=== PATIENT | female | born 1980 | race Caucasian/White ===

== ENCOUNTER 2020-05-11 15:42 | Emergency (ER) | payer MEDICAID, SELFPAY ==
[2020-05-11 15:55] VITALS: BP 129/78; PULSE 108; RESP 15; TEMP 37.7; O2SAT 98; BMI 16.5
== END 2020-05-11 16:29 | disposition left against medical advice (07) ==
LOC: HO.ED 16:29
PROVIDERS: Emergency Provider Emergency Medicine
DX: R10.9 Unspecified abdominal pain (principal)
CPT/HCPCS: 99281; 99282

== ENCOUNTER 2020-10-07 12:31 | Emergency (ER) | payer MEDICAID, SELFPAY ==
--- NOTE | 2020-10-07 12:44 | ED_ITS ---
HPI - Overdose General Chief Complaint: ETOH/Substance Use Stated Complaint: ? Time Seen by Provider: 10/07/20 12:38 Source: patient and aerial photograph interpreter Mode of arrival: ambulatory Limitations: physical limitation History of Present Illness HPI Narrative: 40-year-old female who walked herself to the emergency department with severe vomiting, patient claimed that she used 1 bag of heroin today followed by self administrated nasal Narcan, patient is known to me from a previous visit for similar presentation, mostly [place] speaker, patient presented with vomiting and dry heaving, patient is acting erratic and vague. Patient was taken to room 19, IV fluid will be placed, antiemetic medication will be given, Ativan to come down the patient behavior, will reassess the patient for further history. For now patient's symptoms is assumed to be using heroin with antidote of Narcan. Related Data Allergies Allergy/AdvReac Type Severity Reaction Status Date / Time acetaminophen [From TYLENOL] Allergy Unknown LIVER Verified 05/11/20 16:01 CIRRHOSIS codeine [CODEINE] Allergy Unknown AGITATION Verified 05/11/20 16:01 Codeine Sulfate Allergy Unknown shaky Uncoded 04/09/16 00:00 Review of Systems Review of Systems: Yes Unobtainable due to mental condition PMFSH Past Medical History Medical History (Updated 10/07/20 @ 12:54 by Bryce Barajas MD) Depressed Fibromyalgia Substance abuse Social History Social History Advance Directives: No Advance Directives Information Provided: No Physical Exam Vital Signs: Vital Signs: Last Vital Signs Temp 0 F L 10/07/20 12:51 Pulse 89 10/07/20 14:33 Resp 18 10/07/20 14:33 BP 00/00 L 10/07/20 12:51 Pulse Ox 98 10/07/20 14:33 Body Mass Index 18.3 Vital signs have been reviewed as appeared to be correct. Blood pressure normal. Heart rate normal. Respiration rate normal. Temperature normal. Oxygen saturation normal. Appearance: Is coherent, difficult to interact with the examiner due to active vomiting and dry heaving. Head: Normal external exam. Normocephalic. Atraumatic. No Yeager signs noted. No raccoon eyes noted Eyes: PERRLA. EOMI. Conjunctiva and sclera normal. Eyelids normal. ENT: TM's Normal. Pharynx normal. Uvula midline. Moist mucous membranes. No trismus noted. No drooling noted. No muffled voice noted. Neck: Normal inspection. Neck supple. FROM. No adenopathy. Thyroid Normal. No meningeal signs. No neck mass noted. CVS: Normal heart rate and rhythm. Heart sound normal. No murmurs noted. Pulses normal throughout. Respiratory: No respiratory distress. Painless inspiration. Breath sounds normal. No wheezes/rales/rhonchi noted. Chest nontender. No accessory muscle usage noted or decreased air movement noted. Abdomen: Soft and nontender. Bowel sounds normal in all 4 quadrants. No distention noted. No organomegaly noted. No visible injury noted. Back: No CVA tenderness. Full range of motion noted. Skin: Skin warm and dry. Normal skin color. Normal skin turgor. No rashes/lesions/lacerations noted. Extremities: No lower extremity edema. Extremities exhibit normal range of motion. Extremities nontender. Neuro: No motor deficit. No sensory deficit. Reflexes normal. Course Reevaluation(s) Reevaluation #1: Patient now with more calm and quiet, with improvement of nausea and vomiting and dry heaving, patient discontinue her left forearm IV access, patient is sitting on the floor claiming that she is more comfortable. Vital signs stable. Time: 13:46 Reevaluation #2: Patient now is more home trying to sleep, no more nausea or vomiting, patient admitted to using heroin today with Narcan, patient declined SI or HI hallucination, patient do not have family or friend to come pick her up, from medical standpoint of view patient will be safe to be discharged Discharge Plan Discharge Clinical Impression: Polysubstance abuse, Anxiety Patient Disposition: Home, Self-Care Instructions: Polysubstance Abuse (ED) Referrals: [facility] [Primary Care Provider] - 2 days
[2020-10-07 12:51] VITALS: BP 00/00; PULSE 127; RESP 28; TEMP -17.7; TEMP 0; O2SAT 100; BMI 18.3
[2020-10-07] MEDS: LORazepam 2 MG/ML VIAL 1 MG IVPUSH (12:55)
[2020-10-07] MEDS: ondansetron HCL 4 MG/2 ML VIAL IVPUSH (12:56)
[2020-10-07 13:47] VITALS: PULSE 110; PULSE 90; RESP 20; O2SAT 100
--- NOTE | 2020-10-07 13:50 | PC.NURSE ---
pt seen by provider, pt difficult to get to participate in eval, unable to stay still for vs. pt nauseated and vomiting during triage, pt unwilling to hold emesis bag, almost puking on staff attemptng to settle pt. pt iv established w multiple hand assist. medicated per emar, placed on tele, appears to be settling down. pt no longer vomitting. constantly attempting to get out of bed, pulled iv out. unwilling to stay in pt room or stretcher. persistently attempting to ambulate around department w/o mask. ambulating w quick, steady gait. charger aware of pt status, provider aware of pt status.
--- NOTE | 2020-10-07 14:32 | PC.NURSE ---
pt continuing to be resistant to checking blood pressure. pt is resting in their clothes, head facing foot of stretcher. respirations appear even/unlabored. wctm for dc needs.
[2020-10-07 14:33] VITALS: PULSE 89; RESP 18; O2SAT 98
[2020-10-07 15:12] VITALS: BP 126/72; PULSE 90; RESP 18; O2SAT 99
== END 2020-10-07 15:33 | disposition home or self-care (01) ==
PROVIDERS: Emergency Provider Emergency Medicine
DX: F19.180 Other psychoactive substance abuse with psychoactive substance-induced anxiety disorder (principal); R11.10 Vomiting, unspecified
CPT/HCPCS: 51701; 96361; 96374; 96375; 99285; J2060; J2405

== ENCOUNTER 2020-12-17 17:46 | Emergency (ER) | payer MEDICAID, SELFPAY ==
--- NOTE | 2020-12-17 17:55 | ED_ITS ---
HPI - Alcohol General Chief Complaint: ETOH/Substance Use Stated Complaint: ETOH,?HEROIN USE,-NARCAN Time Seen by Provider: 12/17/20 17:55 Source: patient and EMS Mode of arrival: EMS Limitations: no limitations History of Present Illness HPI narrative: admits to using heroin earlier in the day just left detox, wants to go home, states the police were called because she was using someone's window as a mirror, they offered skilled nursing or ED - she chose ED, no SI, wants to go home, no narcan needed, does not want detox Chronic alcohol use: No Previous visits for alcohol intoxication: No Recent trauma: No Associated symptoms: denies other symptoms Treatments prior to arrival: none Related Data Allergies Allergy/AdvReac Type Severity Reaction Status Date / Time acetaminophen [From TYLENOL] Allergy Unknown LIVER Verified 05/11/20 16:01 CIRRHOSIS codeine [CODEINE] Allergy Unknown AGITATION Verified 05/11/20 16:01 Codeine Sulfate Allergy Unknown shaky Uncoded 04/09/16 00:00 Review of Systems Review of Systems: Constitutional : No Weight loss, No Fever Eyes: No Eye Pain, No Swelling Cardiovascular : No Chest Pain, No SOB Respiratory : No Cough, No Sputum Gastrointestinal : No Nausea, No Vomiting Genitourinary : No Dysuria, No Urinary Frequency Musculoskeletal : No joint pain, No Myalgias Skin : No Skin Lesions, No rash Neuro : No Weakness, No Numbness, No Dizziness, No Headache Psych : No Anxiety/Panic, No Depression PMFSH Past Medical History Attestation statement: The following information was validated with the patient. Medical History Depressed Fibromyalgia Substance abuse Social History Social History (Updated 12/17/20 @ 18:07 by Rebekah Carter DO) Patient Tobacco Use Status: Current everyday Tobacco user Substance Use Type: Heroin Physical Exam Vital Signs: Vital Signs: Last Vital Signs Temp 99.0 F 12/17/20 17:57 Pulse 101 H 12/17/20 17:57 Resp 20 12/17/20 17:57 BP 151/75 H 12/17/20 17:57 Pulse Ox 97 12/17/20 17:57 Body Mass Index 19.3 Appearance: Alert. Oriented X3. No acute distress. Anxious slightly restless Eyes: Pupils equal, round and reactive to light. ENT: Pharynx normal. Neck: Normal inspection. Neck supple. CVS: tachycardic heart rate and rhythm. Pulses normal. Respiratory: No respiratory distress. Breath sounds normal. Abdomen: Soft and nontender. Skin: Skin warm and dry. Normal skin color. Normal skin turgor. Extremities: No lower extremity edema. No calf ttp Neuro: Oriented X 3. No motor deficit. No sensory deficit. MDM - Alcohol MDM Narrative Medical decision making narrative: admits to using heroin earlier in the day just left detox, wants to go home, states the police were called because she was using someone's window as a mirror, they offered skilled nursing or ED - she chose ED, no SI, wants to go home, no narcan needed, does not want detox - I do not think I can keep her on a section, she is not sedated she is alert and oriented x 3, does not want detox, will take narcan home with her. Discharge Plan Discharge Clinical Impression: Heroin abuse Patient Disposition: Home, Self-Care Instructions: Opioid Use Disorder (ED) Additional Instructions: return to ED for any worsening symptoms or concerns
[2020-12-17 17:57] VITALS: BP 147/68; BP 151/75; PULSE 101; PULSE 120; RESP 20; TEMP 37.2; O2SAT 97; O2SAT 98; BMI 19.3
== END 2020-12-17 18:16 | disposition home or self-care (01) ==
PROVIDERS: Emergency Provider Emergency Medicine
DX: F11.10 Opioid abuse, uncomplicated (principal); F17.210 Nicotine dependence, cigarettes, uncomplicated
CPT/HCPCS: 99283

== ENCOUNTER 2020-12-21 02:07 | Emergency (ER) | payer MEDICAID, SELFPAY ==
[2020-12-21] VITALS (12 sets, daily range): BP systolic 124–164; BP diastolic 83–109; PULSE 78–100; RESP 16–20; TEMP 36.5–36.6; O2SAT 98–100; BMI 20.4
--- NOTE | 2020-12-21 02:51 | PC.NURSE ---
pt was thrashing around in the bed. padded side rales in place, 4 point restraints pt arrived in are still in place by security. family friend and mom called in and reported pt was in her room naked and about to jump out her window. pt has track pepper and verbaly states she is high . pt just stated she did herion tonight and she took for her pain from her hernia surgery while she was in longterm in [place].
--- NOTE | 2020-12-21 03:42 | ED.OVERDOSE ---
HPI - Overdose General Chief Complaint: ETOH/Substance Use Stated Complaint: ALTERED ? SUBSTANCE USE,4PT RESTRAINT @ THIS TIME Time Seen by Provider: 12/21/20 03:42 Source: patient, family and EMS Mode of arrival: EMS History of Present Illness HPI Narrative: 40F brought in by EMS after family found her naked and concernt hat she was going to jump out of the window. Unable to obtain further history from the patient other than she states this has not happened before, but never know what I might get in reference to a question regarding heroin. She denies any alcohol use, but endorses heroin. Related Data Allergies Allergy/AdvReac Type Severity Reaction Status Date / Time acetaminophen [From TYLENOL] Allergy Unknown LIVER Verified 05/11/20 16:01 CIRRHOSIS codeine [CODEINE] Allergy Unknown AGITATION Verified 05/11/20 16:01 Codeine Sulfate Allergy Unknown shaky Uncoded 04/09/16 00:00 Review of Systems Review of Systems: Unable to obtain in entirety. [facility] Past Medical History Source: nursing notes reviewed Medical History Depressed Fibromyalgia Substance abuse Social History Social History Patient Tobacco Use Status: Current everyday Tobacco user Substance Use Type: Heroin Advance Directives: No Advance Directives Information Provided: No Physical Exam Vital Signs: Vital Signs: Last Vital Signs Temp 97.8 F 12/21/20 14:26 Pulse 90 12/21/20 14:26 Resp 20 12/21/20 14:26 BP 141/83 H 12/21/20 14:26 Pulse Ox 99 12/21/20 14:26 Body Mass Index 20.4 Vital signs reviewed. GEN: well-developed, appears older than stated age, patient having uncontrolled jerking movements HEENT: no obvious injuries PULM: Lungs CTAB, easy respiration CVS: RRR, no murmurs noted, intact peripheral pulses ABD: soft, non-distended, non-tender EXT: Patient in 4pt restraints for safety measures for herself, no abrasions/injuries noted to ankles or wrists, seizure pads in place for additional patient protection from bed rails. Neuro: Altered with uncontrollable movements Skin: pink, cap refill <3s Course Course Course Narrative: 40F with history and clinical exam consistent with substance overdose and suspect more than heroin in her system given physical movements. Restraints and seizure pads all in place for patient protection from bed rails, otherwise patient is not being violent or agitated with staff. Reevaluation(s) Reevaluation #1: Patient re-evaluated for appropriateness of physical restraint removal. However, at this time patient is still intermittently striking out raising concerns for possible injury to arms or legs. Although patient is interactive, these movements occur when she suddenly awakens. Time: 03:30 Reevaluation #2: Physical restraints removed and patient resting comfortably. Evaluation of ankles and wrists without concerns of injury. Time: 05:30 Reevaluation #3: Signed out to Dr Lozada for discharge when clinically sober. Time: 07:00 MDM - Overdose Lab Data Labs: Lab Results 12/21/20 12/21/20 Range/Units 10:27 11:25 POC Glucose 64 192 H (60-115) mg/dL Discharge Plan Discharge Clinical Impression: Substance abuse Patient Disposition: Home, Self-Care Instructions: Polysubstance Abuse (ED) Additional Instructions: Return to the ER for worsening problem Referrals: [facility] [Primary Care Provider] - 2 days
--- NOTE | 2020-12-21 05:27 | PC.NURSE ---
pt is more relaxed and resting at this time. jerking movements have stop. security called to release pt from restraints. sitter present.
--- NOTE | 2020-12-21 05:53 | PC.NURSE ---
pt restraints assess at 0515 for release and pt is ready for d/c of them, security called and at 0530 remained off. pt is sleeping with occassional brief periods of restlessness. pt is move verbal and can express needs.
--- NOTE | 2020-12-21 10:30 | PC.NURSE ---
pt's poc is 64, pt is very diaphoretic. given given 8 0z of oj with 2 tsps of sugar and eric crackers and a turkey sandwich. pt brought to room 6 and change out of wet hosp garment and blankets.
[2020-12-21 10:32] LABS: Glucose, Whole Blood 64 mg/dL (60-115)
--- NOTE | 2020-12-21 11:24 | PC.NURSE ---
pt's daughter miguel mccarty ([phone]) called [facility] for an updated on her mother. pt is aware and consented. daughter states that she could pick pt up when she is discharged. aware.
--- NOTE | 2020-12-21 11:26 | PC.NURSE ---
pt's poc is 192 which was done by duran (mha/pct). pt is a/o requested/given more juice.
[2020-12-21 11:28] LABS: Glucose, Whole Blood 192 mg/dL (60-115)
--- NOTE | 2020-12-21 12:50 | PC.NURSE ---
pt's daughter at bedside
--- NOTE | 2020-12-21 13:00 | PC.NURSE ---
pt/pt's daughter seen by savanah (care team) they are aware of plan of care.
--- NOTE | 2020-12-21 13:10 | PC.NURSE ---
daughter in resulting pending room, at bedside updating her.
--- NOTE | 2020-12-21 13:34 | MHC.RECOVSUP ---
Recovery Support note: Patient is a 40 year old [place] speaking female who presented to [facility] ED due to altered mental status after using substances. Upon arrival, patient was unable to stay still and was thrashing in the hospital bed. Patient was physically restrained for her safety. Patient is now alert and oriented and reporting a desire to get help for her opioid use disorder. Patient reports daily IV heroin and cocaine use. Patient reports she is not on any medications at this time. Patient denies SI/HI/AH/VH at this time. Patient reports she is willing to go anywhere for treatment. This short story writer spoke with patient's daughter who suspects there was something else in the substances used by her mother, as the thrashing and inability to stay still has never happened before. Daughter reports no safety concerns at this time and is supportive of her mother getting into treatment. This short story writer will refer patient to ATS facilities and will arrange transportation if patient is accepted.
--- NOTE | 2020-12-21 13:49 | PC.NURSE ---
pt ate lunch portion x 3. 100% x 3. pt states that she was very hungry, unsure that last time pt ate.
--- NOTE | 2020-12-21 17:18 | MHC.RECOVSUP ---
Recovery Support note: Patient has been accepted to [facility] for detox and has completed the phone intake. Patient agreeable to getting a Lyft ride to the facility.
[2020-12-21] MEDS: LORazepam 1 MG TABLET PO (17:29)
== END 2020-12-21 17:38 | disposition home or self-care (01) ==
PROVIDERS: Emergency Provider Student in an Organized Health Care Education/Training Program
DX: F11.10 Opioid abuse, uncomplicated (principal); R45.1 Restlessness and agitation; Z78.1 Physical restraint status; F17.210 Nicotine dependence, cigarettes, uncomplicated
CPT/HCPCS: 82947; 99285

== ENCOUNTER 2021-01-18 07:27 | Emergency (ER) | payer MEDICAID, SELFPAY ==
--- NOTE | ~2021-01-18 | XR_ITS ---
EXAMINATION: XR CHEST CLINICAL INFORMATION: Palpitations and chest pain COMPARISON: Previous chest x-ray February 2020 TECHNIQUE: 2 views of the chest were obtained. FINDINGS: No significant abnormality is noted involving the heart, lungs, mediastinum, bony thorax or soft tissues. XR/XR chest 2V IMPRESSION: Unremarkable examination.
[2021-01-18 07:30] VITALS: BP 157/91; PULSE 95; RESP 20; TEMP 36.3; O2SAT 99; BMI 21.9
[2021-01-18 07:50] VITALS: RESP 22
--- NOTE | 2021-01-18 08:09 | ECG_ITS ---
Test Reason : PALPITATIONS Blood Pressure : / mmHG Vent. Rate : 102 BPM Atrial Rate : 102 BPM P-R Int : 136 ms QRS Dur : 086 ms QT Int : 366 ms P-R-T Axes : 037 015 020 degrees QTc Int : 477 ms Sinus tachycardia Otherwise normal ECG When compared with ECG of 08-MAR-2020 01:26, QT has lengthened Referred By: Sonia Stanley Electronically Signed By:PARADISE KENNEDY MD
[2021-01-18] MEDS: LORazepam 1 MG TABLET 2 MG PO (08:26)
[2021-01-18 08:32] LABS: MANUAL DIFF FLAG NO
[2021-01-18 08:34] LABS: Basophils Percent Auto 0.4 % (0-2); Eosinophils Absolute Auto 0.1 X10*3/uL (0.0-0.4); Eosinophils Percent Auto 1.4 % (0-4); Hematocrit 33.2 % (37-47); Hemoglobin 11.2 g/dl (12.0-16.0); Imm Gran Abs Auto 0.02 X10*3/uL (0.00-0.03); Imm Gran Pct Auto 0.3 % (0.0-0.4); Mean Corpuscular HGB Conc 33.7 g/dl (31.0-35.0); Mean Corpuscular Hemoglobin 27.9 pg (27.0-33.0); Mean Corpuscular Volume 82.8 fL (80-98); Mean Platelet Volume 9.4 fL (9.4-12.3); Monocytes Absolute Auto 0.7 X10*3/uL (0.1-1.2); Monocytes Percent Auto 9.4 % (2-11); Neutrophils Absolute Auto 4.5 X10*3/uL (2.0-8.3); Neutrophils Percent Auto 61.5 % (45-73); Platelet Count 271 X10*3/uL (160-400); Red Blood Count 4.01 X10*6/uL (4.20-5.50); Red Cell Distribution Width 15.9 % (11.0-16.0); White Blood Count 7.3 X10*3/uL (4.8-10.8)
[2021-01-18 08:40] LABS: Prothrombin Time 11.8 SEC (10.8-13.0)
[2021-01-18 09:07] LABS: Alanine Aminotransferase 31 U/L (0-31); Albumin Level 4.2 g/dL (3.5-5.0); Alkaline Phosphatase 111 U/L (39-117); Anion Gap 14 (12-20); Aspartate Amino Transferase 23 U/L (5-31); Bilirubin Total 0.6 mg/dL (0.0-1.0); Blood Urea Nitrogen 16 mg/dL (9-16); Calcium 9.1 mg/dL (8.4-10.2); Carbon Dioxide 20 mmol/L (22-29); Chloride 110 mmol/L (96-108); Creatinine Clr Calc Pharmacy 78.3; Estimated Glomerular Filt Rate > 60; Glucose Random 96 mg/dL (60-115); Magnesium 2.2 mg/dL (1.6-2.6); Potassium 3.3 mmol/L (3.3-5.1); Sodium 141 mmol/L (135-145); Total Protein 8.1 g/dL (6.5-8.0)
[2021-01-18 09:09] LABS: B Type Natriuretic Peptide 39 pg/mL (<100); Troponin-I High Sensitivity < 3.5 ng/L (<3.5-17.0)
--- NOTE | 2021-01-18 11:04 | ED_ITS ---
HPI - Chest Pain General Chief Complaint: Arrhythmia/Palpitations Stated Complaint: CHEST RACEING Time Seen by Provider: 01/18/21 08:08 Source: patient Mode of arrival: ambulatory Limitations: no limitations History of Present Illness HPI narrative: 40-year-old female with a past medical history of anxiety disorder, depression, fibromyalgia and substance abuse presenting to the ED with complaints of midsternal/left-sided chest pain that started at 07:30 prior to arrival after she smoked some cocaine. She reports associated palpitations feeling like her heart is racing and tingling throughout her entire body. She denies any SI/HI/auditory visual hallucinations thoughts of self-injury. She reports that she is not interested in detox at this time due to she is already getting the IM injection for substance abuse although cannot recall the name. she also reports she was just recently in detox approximately 1-2 months ago. She denies any dizziness, headaches, change in vision, nausea / vomiting, short ness of breath, dyspnea on exertion, orthopnea, cough, neck pain, back pain, abdominal pain, diarrhea, constipation, recent travel or sick contacts, lower extremity edema or any other symptoms complaints or concerns at this time. MD complaint: chest pain Pertinent past history: other ( cocaine usage prior to arrival) Onset (ago): hour(s) ( started at 07:30am prior to arrival) Timing of current episode: constant and still present Prior episodes: No Onset: associated with drug use Pain location: substernal and left chest Pain radiation: right arm and left arm Severity: moderate Quality: aching Relieving factors: nothing Exacerbating factors: nothing Context: other ( recent cocaine usage) Associated symptoms: other ( paresthesia to the entire body) Treatment prior to arrival: none Risk Factors Coronary artery disease risk factors: cocaine use Related Data On Oral Contraceptives: No Allergies Allergy/AdvReac Type Severity Reaction Status Date / Time acetaminophen [From TYLENOL] Allergy Unknown LIVER Verified 05/11/20 16:01 CIRRHOSIS codeine [CODEINE] Allergy Unknown AGITATION Verified 05/11/20 16:01 Codeine Sulfate Allergy Unknown shaky Uncoded 04/09/16 00:00 Review of Systems Review of Systems: Constitutional : No Weight loss, No Fever, No Chills, No Night Sweats, No Fatigue, No Malaise ENT/Mouth : No Hearing loss, No Ear Pain, No Nasal Congestion, No Sinus Pain, No Hoarseness, No sore throat, No Rhinorrhea, No Swallowing Difficulty Eyes: No Eye Pain, No Swelling, No Redness, No Foreign Body, No Discharge, No Vision Changes Cardiovascular : Positive Chest Pain, Positive Palpitations, No SOB, no Dyspnea on Exertion, No Orthopnea, No Edema, No extremity swelling Respiratory : No Cough, No Sputum, No Wheezing, No Dyspnea Gastrointestinal : No Nausea, No Vomiting, No Diarrhea, No abdominal Pain, No Hematochezia, No Melena Genitourinary : No irregular bleeding, No Dysuria, No Urinary Frequency, No Hematuria, No Urinary Incontinence, No Urgency, No Flank Pain, No Urinary Flow Changes, No Hesitancy Musculoskeletal : No joint pain, No Myalgias, No Joint Swelling Skin : No Skin Lesions, No rash Neuro : Positive Paresthesias, No Weakness, No Numbness, No Paresthesias, No Loss of Consciousness, No Dizziness, No Headache Psych : No Anxiety/Panic, No Depression, No SI/HI/AH/VH Heme/Lymph: No Bruising, No Bleeding,No Lymphadenopathy Endocrine : No Polyuria, No Polydipsia, No Temperature Intolerance Yes all other systems are reviewed and are negative [facility] Past Medical History Attestation statement: The following information was validated with the patient. Medical History Depressed Fibromyalgia Substance abuse Social History Social History Patient Tobacco Use Status: Current everyday Tobacco user Substance Use Type: Heroin Advance Directives: No Advance Directives Information Provided: No Patient : No Physical Exam Vital Signs: Vital Signs: Last Vital Signs Temp 97.4 F 01/18/21 07:30 Pulse 90 01/18/21 11:49 Resp 20 01/18/21 11:49 BP 157/91 H 01/18/21 07:30 Pulse Ox 99 01/18/21 07:30 Body Mass Index 21.9 vital signs have been reviewed as normal and appeared to be correct. Blood pressure hypertensive 157/91. Heart rate normal. Respiration rate normal. Temperature normal. Oxygen saturation normal. Appearance: Alert. Oriented X3. No acute distress. Head: Normal external exam. Normocephalic. Atraumatic. Eyes: PERRLA. EOMI. Conjunctiva and sclera normal. Eyelids normal. ENT: Pharynx normal. Uvula midline. Moist mucous membranes. Neck: Normal inspection. Neck supple. FROM. No adenopathy. No meningeal signs. CVS: Normal heart rate and rhythm. Heart sound normal. Pulses normal throughout. No murmurs/rales/gallops. Respiratory: No respiratory distress. Painless inspiration. Breath sounds normal. No wheezes/rales/rhonchi noted. Chest nontender. No accessory muscle usage noted or decreased air movement noted. Abdomen: Soft and nontender. Bowel sounds normal in all 4 quadrants. No distention noted. No organomegaly noted. No visible injury noted. Back: Full range of motion noted. No rashes/lesion/induration/fluctuance or signs of infection noted. Skin: Skin warm and dry. Normal skin color. Normal skin turgor. No rashes/lesions/lacerations noted. Extremities: No lower extremity edema. no calf tenderness noted. Extremities exhibit normal range of motion. Extremities nontender. Neuro: Oriented X 3. No motor deficit. No sensory deficit. Reflexes normal. Normal steady gait. No focal neuro deficits noted. Vascular: + radial pulses/+ 2 distal pedal pulses/+2 dorsalis pedis b/l. Normal cap refill. No cyanosis noted to upper extremity nails and lower extremity toes nails. Course Course Course Narrative: 8:10am - 40-year-old female with a past medical history of anxiety disorder, depression, fibromyalgia and substance abuse presenting to the ED with complaints of midsternal/left-sided chest pain that started at 07:30 prior to arrival after she smoked some cocaine. She reports associated palpitations feeling like her heart is racing and tingling throughout her entire body. Plan: Labs, Chest x-ray, EKG. Provide 2 mg of p.o. Ativan and re-evaluate Reevaluation(s) Reevaluation #1: - labs returned patient had 2- delta is for troponin. Otherwise all other labs are within normal limits. Chest x-ray within normal limits no evidence of any acute disease is noted. EKG normal sinus rhythm no acute ischemic changes were noted. Therefore will DC home with instructions to not use any cocaine or any other drugs and to return if any new or worsening symptoms to follow up with primary care provider. Patient understands agrees with this plan. Time: 12:33 [facility] - Chest Pain Medical Records Data Attestation: I reviewed the patient's medical records. Lab Data Attestation: I reviewed the patient's lab results. Result diagrams: 01/18/21 08:28 01/18/21 08:28 Labs: Lab Results 01/18/21 01/18/21 01/18/21 Range/Units 08:28 08:28 08:28 WBC 7.3 (4.8-10.8) X10*3/uL RBC 4.01 L (4.20-5.50) X10*6/uL Hgb 11.2 L (12.0-16.0) g/dl Hct 33.2 L (37-47) % MCV 82.8 (80-98) fL MCH 27.9 (27.0-33.0) pg MCHC 33.7 (31.0-35.0) g/dl RDW 15.9 (11.0-16.0) % Plt Count 271 (160-400) X10*3/uL MPV 9.4 (9.4-12.3) fL Immature Gran % (Auto) 0.3 (0.0-0.4) % Neut % (Auto) 61.5 (45-73) % Lymph % (Auto) 27.0 (20-40) % Pacific % (Auto) 9.4 (2-11) % Eos % (Auto) 1.4 (0-4) % Baso % (Auto) 0.4 (0-2) % Lymph # (Auto) 2.0 (1.2-4.9) X10*3/uL Pacific # (Auto) 0.7 (0.1-1.2) X10*3/uL Eos # (Auto) 0.1 (0.0-0.4) X10*3/uL Baso # (Auto) 0.0 (0.0-0.2) X10*3/uL Abs Immat Gran (auto) 0.02 (0.00-0.03) X10*3/uL Absolute Neuts (auto) 4.5 (2.0-8.3) X10*3/uL Absolute Nucleated RBC 0.000 (0.0-0.012) X10*3/uL Nucleated RBC % (auto) 0.0 (0.0-0.2) /100WBC PT 11.8 (10.8-13.0) SEC INR 1.0 (0.9-1.1) Sodium 141 (135-145) mmol/L Potassium 3.3 (3.3-5.1) mmol/L Chloride 110 H (96-108) mmol/L Carbon Dioxide 20 L (22-29) mmol/L Anion Gap 14 (12-20) BUN 16 (9-16) mg/dL Creatinine 0.77 (0.5-1.4) mg/dL Estim Creat Clear Calc 78.3 Estimated GFR > 60 Random Glucose 96 (60-115) mg/dL Calcium 9.1 (8.4-10.2) mg/dL Magnesium 2.2 (1.6-2.6) mg/dL Total Bilirubin 0.6 (0.0-1.0) mg/dL AST 23 (5-31) U/L ALT 31 (0-31) U/L Alkaline Phosphatase 111 (39-117) U/L Troponin I High Sens (<3.5-17.0) ng/L B-Natriuretic Peptide (<100) pg/mL Total Protein 8.1 H (6.5-8.0) g/dL Albumin 4.2 (3.5-5.0) g/dL 01/18/21 01/18/21 Range/Units 08:28 11:46 WBC (4.8-10.8) X10*3/uL RBC (4.20-5.50) X10*6/uL Hgb (12.0-16.0) g/dl Hct (37-47) % MCV (80-98) fL MCH (27.0-33.0) pg MCHC (31.0-35.0) g/dl RDW (11.0-16.0) % Plt Count (160-400) X10*3/uL MPV (9.4-12.3) fL Immature Gran % (Auto) (0.0-0.4) % Neut % (Auto) (45-73) % Lymph % (Auto) (20-40) % Pacific % (Auto) (2-11) % Eos % (Auto) (0-4) % Baso % (Auto) (0-2) % Lymph # (Auto) (1.2-4.9) X10*3/uL Pacific # (Auto) (0.1-1.2) X10*3/uL Eos # (Auto) (0.0-0.4) X10*3/uL Baso # (Auto) (0.0-0.2) X10*3/uL Abs Immat Gran (auto) (0.00-0.03) X10*3/uL Absolute Neuts (auto) (2.0-8.3) X10*3/uL Absolute Nucleated RBC (0.0-0.012) X10*3/uL Nucleated RBC % (auto) (0.0-0.2) /100WBC PT (10.8-13.0) SEC INR (0.9-1.1) Sodium (135-145) mmol/L Potassium (3.3-5.1) mmol/L Chloride (96-108) mmol/L Carbon Dioxide (22-29) mmol/L Anion Gap (12-20) BUN (9-16) mg/dL Creatinine (0.5-1.4) mg/dL Estim Creat Clear Calc Estimated GFR Random Glucose (60-115) mg/dL Calcium (8.4-10.2) mg/dL Magnesium (1.6-2.6) mg/dL Total Bilirubin (0.0-1.0) mg/dL AST (5-31) U/L ALT (0-31) U/L Alkaline Phosphatase (39-117) U/L Troponin I High Sens < 3.5 < 3.5 (<3.5-17.0) ng/L B-Natriuretic Peptide 39 (<100) pg/mL Total Protein (6.5-8.0) g/dL Albumin (3.5-5.0) g/dL Imaging Data Chest x-ray: Attestation: I personally reviewed and interpreted this imaging study as follows: Radiologist's impression: FINDINGS: No significant abnormality is noted involving the heart, lungs, mediastinum, bony thorax or soft tissues. XR/XR chest 2V IMPRESSION: Unremarkable examination. ECG Data ECG #1: Attestation: I personally reviewed and interpreted this ECG as follows: ECG interpretation date: 01/18/21 ECG interpretation time: 07:42 Interpretation: sinus tachycardia ventricular rate of 102 with a normal WI interval normal QRS duration and a QT/QTC interval. No acute ischemic change are noted. Similar compared to prior EKG 03/08/2020 Discharge Plan Discharge Clinical Impression: Atypical chest pain, Substance abuse Patient Disposition: Home, Self-Care Instructions: Chest Pain (ED), Polysubstance Abuse (ED) Additional Instructions: it is important that you do not use any drugs especially cocaine this can actually cause a heart attack. All your blood work was normal today. Return if any new or worsening symptoms and follow up with her primary care provider. Referrals: [place],[facility] [Primary Care Provider] - 2 days Print Language: Uzbek
[2021-01-18 11:49] VITALS: PULSE 90; RESP 20
[2021-01-18 12:17] LABS: Troponin-I High Sensitivity < 3.5 ng/L (<3.5-17.0)
== END 2021-01-18 13:50 | disposition home or self-care (01) ==
PROVIDERS: Physician Assistant Medical; Emergency Provider Emergency Medicine Emergency Medical Services
DX: R07.89 Other chest pain (principal); F19.10 Other psychoactive substance abuse, uncomplicated; F41.9 Anxiety disorder, unspecified; F32.9 Major depressive disorder, single episode, unspecified; F17.210 Nicotine dependence, cigarettes, uncomplicated
CPT/HCPCS: 36415; 71046; 80053; 83735; 83880; 84484; 85025; 85610; 93005; 99284

== ENCOUNTER 2021-01-19 07:57 | Emergency (ER) | payer MEDICAID, SELFPAY ==
[2021-01-19 08:02] VITALS: BP 160/95; PULSE 110; RESP 18; TEMP 36.7; O2SAT 99; BMI 48.4
[2021-01-19 08:55] VITALS: BP 144/80; PULSE 97; RESP 19; TEMP 37.1; O2SAT 100
--- NOTE | 2021-01-19 09:11 | ED.GENADULT ---
HPI - General Adult General Chief complaint: General Medical Stated complaint: mutiple complaints Time Seen by Provider: 01/19/21 09:07 Source: patient Mode of arrival: ambulatory Limitations: no limitations History of Present Illness HPI narrative: 40-year-old female with a past medical for anxiety disorder, depression, fibromyalgia and substance abuse presenting to the ED requesting to be tested for Lyme. She reports she is unsure if she has been bitten by a tick although she reports she had a full workup yesterday and she forgot to mention that she wanted to be tested for Lyme. Reports the last time she is cocaine was yesterday morning. She denies any dizziness, headaches, change in vision, nausea/ vomiting, neck pain / stiffness/ injury, chest pain, shortness of breath, dyspnea on exertion, orthopnea, palpitations, abdominal pain, diarrhea, constipation, dysuria, hematuria, abnormal vaginal discharge, back pain, recent travel, sick contacts, lower extremity edema or calf tenderness, rashes or any other symptoms complaints or concerns at this time. Related Data Previous Rx's Medication Instructions Recorded doxycycline hyclate 100 mg PO BID 14 Days #28 tab 01/19/21 Allergies Allergy/AdvReac Type Severity Reaction Status Date / Time acetaminophen [From TYLENOL] Allergy Unknown LIVER Verified 05/11/20 16:01 CIRRHOSIS codeine [CODEINE] Allergy Unknown AGITATION Verified 05/11/20 16:01 Codeine Sulfate Allergy Unknown shaky Uncoded 04/09/16 00:00 Review of Systems Review of Systems: Constitutional : No Weight loss, No Fever, No Chills, No Night Sweats, No Fatigue, NoMalaise ENT/Mouth: No ear pain, No sore throat, No Difficulty swallowing Cardiovascular : No Chest Pain, No SOB, No Dyspnea on Exertion, No Orthopnea, NoEdema, No Palpitations Respiratory : No Cough, No Sputum, No Wheezing, No Dyspnea Gastrointestinal : No Nausea, No Vomiting, No abdominal pain, No Diarrhea, No blood streaked emesis, No coffee-ground emesis, No gross hematemesis, No blood streak stool, No gross hematochezia, No Melena Genitourinary : No irregular bleeding, No Dysuria, No Urinary Frequency, No Hematuria,No Urinary Incontinence, No Urgency, No Flank Pain Musculoskeletal : No joint pain, No Myalgias, No Joint Swelling Skin : No Skin Lesions, No rash Neuro : No Weakness, No Numbness, No Paresthesias, No Loss of Consciousness, NoDizziness, No Headache Psych : No Social Issues, Heme/Lymph: No Bruising, No Bleeding,No Lymphadenopathy Endocrine : No Polyuria, No Polydipsia, No Temperature Intolerance Yes all other systems are reviewed and are negative [facility] Past Medical History Attestation statement: The following information was validated with the patient. Medical History Depressed Fibromyalgia Substance abuse Social History Social History Alcohol intake: never Patient Tobacco Use Status: Current everyday Tobacco user Use of substances other than those prescribed or required for medical reasons: Yes Substance Use Type: Crack/Cocaine Substance Use Frequency: Occasionally Advance Directives: No Advance Directives Information Provided: No Patient : No Physical Exam Vital Signs: Vital Signs: Last Vital Signs Temp 98.7 F 01/19/21 08:55 Pulse 97 01/19/21 08:55 Resp 19 01/19/21 08:55 BP 144/80 H 01/19/21 08:55 Pulse Ox 100 01/19/21 08:55 Body Mass Index 48.4 vital signs have been reviewed as normal and appeared to be correct. Blood pressure Hypertensive 160/95. Heart rate normal. Respiration rate normal. Temperature normal. Oxygen saturation normal. Appearance: Alert. Oriented X3. No acute distress. Head: Normal external exam. Normocephalic. Atraumatic. Eyes: PERRLA. EOMI. Conjunctiva and sclera normal. Eyelids normal. ENT: Pharynx normal. Uvula midline. Moist mucous membranes. Neck: Normal inspection. Neck supple. FROM. No adenopathy. Thyroid Normal. No meningeal signs. No neck mass noted. CVS: Normal heart rate and rhythm. Heart sound normal. Pulses normal throughout. No murmurs/rales/gallops. Respiratory: No respiratory distress. Painless inspiration. Breath sounds normal. No wheezes/rales/rhonchi noted. Chest nontender. No accessory muscle usage noted or decreased air movement noted. Abdomen: Soft and nontender. Bowel sounds normal in all 4 quadrants. No distention noted. No organomegaly noted. No visible injury noted. Back: Full range of motion noted. No rashes/lesion/induration/fluctuance or signs of infection noted. Skin: Skin warm and dry. Normal skin color. Normal skin turgor. No rashes/lesions/lacerations noted. Extremities: No lower extremity edema. No calf tenderness. Extremities exhibit normal range of motion. Extremities nontender. Neuro: Oriented X 3. No motor deficit. No sensory deficit. Reflexes normal. Normal steady gait. No focal neuro deficits noted. Vascular: + radial pulses/+ 2 distal pedal pulses/+2 dorsalis pedis b/l. Normal cap refill. No cyanosis noted to upper extremity nails and lower extremity toes nails. Course Course Course Narrative: 40-year-old female with a past medical for anxiety disorder, depression, fibromyalgia and substance abuse presenting to the ED requesting to be tested for Lyme. She reports she is unsure if she has been bitten by a tick although she reports she had a full workup yesterday and she forgot to mention that she wanted to be tested for Lyme. Plan: Lyme titer then send home c abx's and instructions to return if any new or worsening symptoms to follow up with primary care provider. Patient understands agrees with this plan. Medical Decision Making Medical Records Medical records reviewed: Yes I reviewed the patient's medical records. Lab Data Lab results reviewed: Yes I reviewed the patient's lab results. Discharge Plan Discharge Clinical Impression: Normal exam Patient Disposition: Home, Self-Care Instructions: Lyme Disease (ED), Tick Bite (ED) Additional Instructions: You have pending lab results if any are positive you will be contacted. You do not need to start taking these antibiotics unless you are positive for Lyme. Return if any new or worsening symptoms and follow-up with your primary care provider. Prescriptions: New doxycycline hyclate 100 mg tablet 100 mg PO BID 14 Days Qty: 28 RF: 0 Referrals: [facility] [Primary Care Provider] - 2 days Print Language: Palestinian
[2021-01-22 19:37] LABS: Lyme Abs Screen <0.90 index
== END 2021-01-19 09:46 | disposition home or self-care (01) ==
PROVIDERS: Physician Assistant Medical; Emergency Provider Emergency Medicine Emergency Medical Services
DX: Z71.1 Person with feared health complaint in whom no diagnosis is made (principal)
CPT/HCPCS: 36415; 86617; 86618; 99284

== ENCOUNTER 2021-09-24 11:18 | Emergency (ER) | payer MEDICAID, SELFPAY ==
--- NOTE | ~2021-09-24 | CT_ITS ---
EXAMINATION: CT SOFT TISSUE NECK WITH CONTRAST CLINICAL INFORMATION: Right lower dental pain and jaw swelling. Rule out abscess. COMPARISON: None TECHNIQUE: Following the intravenous administration of 60 mL of Omnipaque 350 intravenous contrast, helical imaging was performed in the axial plane with generation of coronal and sagittal reformatted images. This CT examination was performed using dose optimization techniques as appropriate, variously including the following: *Automated exposure control *Adjustment of mA and/or kV according to patient size (this includes techniques or standardized protocols for targeted exams where dose is matched to indication/reason for exam; i.e. extremities or head) *Use of iterative reconstruction technique DLP: 535 mGy-cm FINDINGS: No dental abscess is seen. There is slight asymmetric fullness of the soft tissues immediately overlying the mandible and some stranding of the fat. No focal soft tissue fluid collection is seen. The temporomandibular joints are normal. The mastoid air cells and middle ears are clear. There are polyps or cysts seen in the bilateral maxillary sinuses. The paranasal sinuses are otherwise clear. There is question of bilateral postsurgical change to the maxillary sinuses. The salivary glands and thyroid gland are normal. There are small bilateral cervical lymph nodes. No enlarged lymph nodes are seen. The oropharynx and larynx are normal. The visualized intracranial structures are normal. The orbits are normal. The vascular structures are normal. There are 2 small 3 mm upper lobe nodules on the right (axial image 88) and on the left (axial image 104 series 4). The right pulmonary nodule is similar to images from cervical spine CT July 2018. The visualized superior mediastinum is normal. There is mild degenerative spondylosis at C4-C5, C5-C6 and C6-C7. CT/CT soft tissue neck w con IMPRESSION: No dental abscess seen. Slight asymmetric fullness of the soft tissues immediately adjacent to the mandible and stranding of the adjacent subcutaneous fat questionable for cellulitis. No soft tissue fluid collection. Polyps or cysts in the bilateral maxillary sinuses.
[2021-09-24 12:50] VITALS: BP 125/81; PULSE 79; RESP 16; TEMP 36.9; O2SAT 98; BMI 20.5
[2021-09-24 15:19] LABS: MANUAL DIFF FLAG NO
[2021-09-24 15:22] LABS: Basophils Percent Auto 0.3 % (0-2); Eosinophils Absolute Auto 0.1 X10*3/uL (0.0-0.4); Eosinophils Percent Auto 1.6 % (0-4); Hematocrit 39.2 % (37.0-47.0); Hemoglobin 13.1 g/dl (12.0-16.0); Imm Gran Abs Auto 0.02 X10*3/uL (0.00-0.03); Imm Gran Pct Auto 0.3 % (0.0-0.4); Lymphocytes Absolute Auto 2.3 X10*3/uL (1.2-4.9); Lymphocytes Percent Auto 30.5 % (20-40); Mean Corpuscular HGB Conc 33.4 g/dl (31.0-35.0); Mean Corpuscular Hemoglobin 29.8 pg (27.0-33.0); Mean Corpuscular Volume 89.1 fL (80.0-98.0); Mean Platelet Volume 10.2 fL (9.4-12.3); Monocytes Absolute Auto 0.4 X10*3/uL (0.1-1.2); Monocytes Percent Auto 5.8 % (2-11); Neutrophils Absolute Auto 4.7 x10*3/uL (2.0-8.3); Neutrophils Percent Auto 61.5 % (45-73); Platelet Count 243 X10*3/uL (160-400); Red Cell Distribution Width 13.8 % (11.0-16.0); White Blood Count 7.6 X10*3/uL (4.8-10.8)
--- NOTE | 2021-09-24 15:28 | ED_ITS ---
HPI - Dental/Oral General Chief complaint: Dental/Oral Stated complaint: Facial swelling Time Seen by Provider: 09/24/21 14:09 Source: patient Mode of arrival: ambulatory Limitations: no limitations History of Present Illness HPI Narrative: 41-year-old female who is recovering from substance abuse presenting to the ED with complaints of right lower dental pain with jaw swelling/ facial swelling for the past 7-10 days worse today. Reports that she went to Grocery store and bought Amoxicillin that was not prescribed by a provider. She does not want any narcotics. She denies any fevers, trouble swallowing or breathing, sore throat, drooling, changes in voice, spreading rash or any other symptoms complaints or concerns at this time. MD Complaint: tooth pain Teeth map: 1. Onset (ago): day(s) (7-10 days ) Duration: worsening Severity: moderate Relieving factors: nothing Exacerbating factors: chewing and other (and palpation of the lower mouth/jaw) Context: poor dental care Treatment prior to arrival: other (she reports she bought otc Amoxicillin from a store not a pharmacy ) Related Data Previous Rx's Medication Instructions Recorded doxycycline hyclate 100 mg tablet 100 mg PO BID 14 Days #28 tab 01/19/21 acetaminophen 500 mg tablet 1,000 mg PO QID PRN #14 tab 09/24/21 (Tylenol Extra Strength) cephalexin 500 mg capsule 500 mg PO Q6H 10 Days #40 cap 09/24/21 doxycycline monohydrate 100 mg 100 mg PO BID 10 Days #20 cap 09/24/21 capsule ibuprofen 800 mg tablet 800 mg PO Q8H PRN #14 tab 09/24/21 Allergies Allergy/AdvReac Type Severity Reaction Status Date / Time acetaminophen [From TYLENOL] Allergy Unknown LIVER Verified 05/11/20 16:01 CIRRHOSIS codeine [CODEINE] Allergy Unknown AGITATION Verified 05/11/20 16:01 Codeine Sulfate Allergy Unknown shaky Uncoded 04/09/16 00:00 Review of Systems Review of Systems: Constitutional : No Fever, No Chills, No changes in PO intake, No difficulty speaking, no recent dental procedure, no heat or cold in tolerance while eating, no recent face trauma, ENT/Mouth : + Dental pain/jaw pain, + right lower jaw swelling, + lower jaw/facial swelling, No Sore throat, No throat swelling, No swallowing difficulty, no change in voice, no drooling, no trismus, no bleeding, no lacerations, no tongue swelling, gum swelling, Eyes: No Eye Pain, No periorbital Swelling Cardiovascular : No Chest Pain, No SOB Respiratory : No Cough, No Sputum, No Wheezing, No Smoke Exposure, No Dyspnea Gastrointestinal : No Nausea, No Vomiting, No Diarrhea Genitourinary : No Dysuria Musculoskeletal : No Myalgias Skin : No rash, no facial swelling or redness, Neuro : No Weakness, No Numbness, No Headache Yes all other systems are reviewed and are negative [facility] Past Medical History Attestation statement: The following information was validated with the patient. Medical History Depressed Fibromyalgia Substance abuse Social History Social History Alcohol intake: never Patient Tobacco Use Status: Current everyday Tobacco user Substance Use Type: Crack/Cocaine Advance Directives: No Advance Directives Information Provided: No Physical Exam Vital Signs: Vital Signs: Last Vital Signs Temp 98.0 F 09/24/21 16:04 Pulse 69 09/24/21 16:04 Resp 16 09/24/21 16:04 BP 122/84 09/24/21 16:04 Pulse Ox 100 09/24/21 16:04 BMI result Body Mass Index 20.5 vital signs have been reviewed as normal and appeared to be correct. Blood pressure normal. Heart rate normal. Respiration rate normal. Temperature normal. Oxygen saturation normal. Appearance: Alert. Oriented X3. No acute distress. Head: Normal external exam. Normocephalic. Atraumatic. Eyes: PERRLA. EOMI. Conjunctiva and sclera normal. Eyelids normal. ENT: EAC normal. TM's Normal. Pharynx normal. Uvula midline. Moist mucous membranes. No trismus noted. No drooling noted. No muffled voice noted. Dentition: Patient with poor dentition throughout with multiple old fractured teeth with multiple dental caries. Patient does have moderate tenderness to right lower jaw/face c soft tissue swelling around the 27-29 teeth. No obvious fluctuance. Although patient is very tender. Gingival within normal limits. Not consistent with peritonsillar abscess. Not consistent with dental abscess. No salivary duct obstruction noted. Neck: Normal inspection. Neck supple. FROM. No adenopathy. Thyroid Normal. No meningeal signs. No neck mass noted. Trachea midline. CVS: Normal heart rate and rhythm. Heart sound normal. No murmurs noted. Pulses normal throughout. Respiratory: No respiratory distress. Painless inspiration. Breath sounds n ormal. No wheezes/rales/rhonchi noted. Chest nontender. No accessory muscle usage noted or decreased air movement noted. Back: Full range of motion noted. Skin: Skin warm and dry. Normal skin color. Normal skin turgor. No rashes/lesions/lacerations noted. Extremities:Extremities exhibit normal range of motion. Extremities nontender. Neuro: Oriented X 3. No motor deficit. No sensory deficit. Reflexes normal. Course Course Course Narrative: 15:45pm - 41-year-old female who is recovering from substance abuse presenting to the ED with complaints of right lower dental pain with jaw swelling/ facial swelling for the past 7-10 days worse today. Reports that she went to Grocery store and bought Amoxicillin that was not prescribed by a provider. She does not want any narcotics. She denies any fevers, trouble swallowing or breathing, sore throat, drooling, changes in voice, spreading rash or any other symptoms complaints or concerns at this time. Plan: Labs, CT sacn of soft tissue neck with IV contrast and re-evaluate. Reevaluation(s) Reevaluation #1: - CT scan of soft tissue neck negative for any drainable abscess they are reporting possible cellulitis. Therefore patient is tolerating secretions well. There is no trismus /drooling/stridor and there is no obvious signs of peritonsillar/ pharyngeal or dental abscess. Therefore at this time will DC home with p.o. antibiotics and instructions to follow-up with PCP and to return if any new or worsening symptoms. Patient understands agrees with this plan. Time: 17:24 MDM - Dental/Oral Medical Records Attestation: I reviewed the patient's medical records. Lab Data Attestation: I reviewed the patient's lab results. Result diagrams: 09/24/21 15:15 09/24/21 15:15 Labs: Lab Results 09/24/21 09/24/21 09/24/21 Range/Units 15:15 15:15 15:15 WBC 7.6 (4.8-10.8) X10*3/uL RBC 4.40 (4.20-5.50) X10*6/uL Hgb 13.1 (12.0-16.0) g/dl Hct 39.2 (37.0-47.0) % MCV 89.1 (80.0-98.0) fL MCH 29.8 (27.0-33.0) pg MCHC 33.4 (31.0-35.0) g/dl RDW 13.8 (11.0-16.0) % Plt Count 243 (160-400) X10*3/uL MPV 10.2 (9.4-12.3) fL Immature Gran % (Auto) 0.3 (0.0-0.4) % Neut % (Auto) 61.5 (45-73) % Lymph % (Auto) 30.5 (20-40) % [place] % (Auto) 5.8 (2-11) % Eos % (Auto) 1.6 (0-4) % Baso % (Auto) 0.3 (0-2) % Lymph # (Auto) 2.3 (1.2-4.9) X10*3/uL [place] # (Auto) 0.4 (0.1-1.2) X10*3/uL Eos # (Auto) 0.1 (0.0-0.4) X10*3/uL Baso # (Auto) 0.0 (0.0-0.2) X10*3/uL Abs Immat Gran (auto) 0.02 (0.00-0.03) X10*3/uL Absolute Neuts (auto) 4.7 (2.0-8.3) x10*3/uL Absolute Nucleated RBC 0.000 (0.0-0.012) X10*3/uL Nucleated RBC % (auto) 0.0 (0.0-0.2) /100WBC PT 11.3 (9.9-13.0) SEC INR 1.0 (0.9-1.1) Sodium 141 (135-145) mmol/L Potassium 4.2 D (3.3-5.1) mmol/L Chloride 105 (96-108) mmol/L Carbon Dioxide 27 (22-29) mmol/L Anion Gap 13 (12-20) BUN 15 (9-16) mg/dL Creatinine 0.79 (0.5-1.4) mg/dL Estim Creat Clear Calc 75.6 Estimated GFR > 60 Random Glucose 143 H (60-115) mg/dL Calcium 9.2 (8.4-10.2) mg/dL Magnesium 2.1 (1.6-2.6) mg/dL Total Bilirubin 0.3 (0.0-1.0) mg/dL AST 22 (5-31) U/L ALT 19 (0-31) U/L Alkaline Phosphatase 84 D (39-117) U/L Total Protein 8.0 (6.5-8.0) g/dL Albumin 4.2 (3.5-5.0) g/dL Beta HCG, Quant < 2 mIU/mL 09/24/21 Range/Units 15:15 WBC (4.8-10.8) X10*3/uL RBC (4.20-5.50) X10*6/uL Hgb (12.0-16.0) g/dl Hct (37.0-47.0) % MCV (80.0-98.0) fL MCH (27.0-33.0) pg MCHC (31.0-35.0) g/dl RDW (11.0-16.0) % Plt Count (160-400) X10*3/uL MPV (9.4-12.3) fL Immature Gran % (Auto) (0.0-0.4) % Neut % (Auto) (45-73) % Lymph % (Auto) (20-40) % [place] % (Auto) (2-11) % Eos % (Auto) (0-4) % Baso % (Auto) (0-2) % Lymph # (Auto) (1.2-4.9) X10*3/uL [place] # (Auto) (0.1-1.2) X10*3/uL Eos # (Auto) (0.0-0.4) X10*3/uL Baso # (Auto) (0.0-0.2) X10*3/uL Abs Immat Gran (auto) (0.00-0.03) X10*3/uL Absolute Neuts (auto) (2.0-8.3) x10*3/uL Absolute Nucleated RBC (0.0-0.012) X10*3/uL Nucleated RBC % (auto) (0.0-0.2) /100WBC PT (9.9-13.0) SEC INR (0.9-1.1) Sodium (135-145) mmol/L Potassium (3.3-5.1) mmol/L Chloride (96-108) mmol/L Carbon Dioxide (22-29) mmol/L Anion Gap (12-20) BUN (9-16) mg/dL Creatinine (0.5-1.4) mg/dL Estim Creat Clear Calc Estimated GFR Random Glucose (60-115) mg/dL Calcium (8.4-10.2) mg/dL Magnesium (1.6-2.6) mg/dL Total Bilirubin (0.0-1.0) mg/dL AST (5-31) U/L ALT (0-31) U/L Alkaline Phosphatase (39-117) U/L Total Protein (6.5-8.0) g/dL Albumin (3.5-5.0) g/dL Beta HCG, Quant Cancelled mIU/mL Imaging Data Soft tissue CT scan of neck with contrast: Attestation: I personally reviewed and interpreted this imaging study as follows: Radiologist's impression: FINDINGS: No dental abscess is seen. There is slight asymmetric fullness of the soft tissues immediately overlying the mandible and some stranding of the fat. No focal soft tissue fluid collection is seen. The temporomandibular joints are normal. The mastoid air cells and middle ears are clear. There are polyps or cysts seen in the bilateral maxillary sinuses. The paranasal sinuses are otherwise clear. There is question of bilateral postsurgical change to the maxillary sinuses. The salivary glands and thyroid gland are normal. There are small bilateral cervical lymph nodes. No enlarged lymph nodes are seen. The oropharynx and larynx are normal. The visualized intracranial structures are normal. The orbits are normal. The vascular structures are normal. There are 2 small 3 mm upper lobe nodules on the right (axial image 88) and on the left (axial image 104 series 4). The right pulmonary nodule is similar to images from cervical spine CT July 2018. The visualized superior mediastinum is normal. There is mild degenerative spondylosis at C4-C5, C5-C6 and C6-C7. CT/CT soft tissue neck w con IMPRESSION: No dental abscess seen. Slight asymmetric fullness of the soft tissues immediately adjacent to the mandible and stranding of the adjacent subcutaneous fat questionable for cellulitis. No soft tissue fluid collection. Polyps or cysts in the bilateral maxillary sinuses.? Discharge Plan Discharge Clinical Impression: Toothache, Cellulitis of face Patient Disposition: Home, Self-Care Instructions: Cellulitis (ED), Toothache (ED) Prescriptions: New ibuprofen 800 mg tablet 800 mg PO Q8H PRN (Reason: pain) Qty: 14 0RF doxycycline monohydrate 100 mg capsule 100 mg PO BID 10 Days Qty: 20 0RF cephalexin 500 mg capsule 500 mg PO Q6H 10 Days Qty: 40 0RF acetaminophen [Tylenol Extra Strength] 500 mg tablet 1,000 mg PO QID PRN (Reason: fever or pain) Qty: 14 0RF No Action doxycycline hyclate 100 mg tablet 100 mg PO BID 14 Days Qty: 28 0RF Referrals: Physician,None [Primary Care Provider] - 2 days (your pcp/dentist) Stand Alone Forms: Work/School Release Print Language: Kinyarwanda
[2021-09-24 15:33] LABS: Prothrombin Time 11.3 SEC (9.9-13.0)
[2021-09-24 15:41] LABS: Alanine Aminotransferase 19 U/L (0-31); Albumin Level 4.2 g/dL (3.5-5.0); Alkaline Phosphatase 84 U/L (39-117); Anion Gap 13 (12-20); Aspartate Amino Transferase 22 U/L (5-31); Bilirubin Total 0.3 mg/dL (0.0-1.0); Blood Urea Nitrogen 15 mg/dL (9-16); Calcium 9.2 mg/dL (8.4-10.2); Carbon Dioxide 27 mmol/L (22-29); Chloride 105 mmol/L (96-108); Creatinine Clr Calc Pharmacy 75.6; Estimated Glomerular Filt Rate > 60; Glucose Random 143 mg/dL (60-115); Magnesium 2.1 mg/dL (1.6-2.6); Potassium 4.2 mmol/L (3.3-5.1); Sodium 141 mmol/L (135-145)
[2021-09-24] MEDS: Ibuprofen 800 MG TABLET PO (15:41)
[2021-09-24 15:44] LABS: HCG Quantitative < 2 mIU/mL
[2021-09-24] MEDS: iohexoL 350 MG/ML 100 ML INFUS..BTL IV (16:02)
[2021-09-24 16:04] VITALS: BP 122/84; PULSE 69; RESP 16; TEMP 36.7; O2SAT 100
== END 2021-09-24 17:52 | disposition home or self-care (01) ==
PROVIDERS: Physician Assistant Medical; Emergency Provider Emergency Medicine Emergency Medical Services
DX: K08.89 Other specified disorders of teeth and supporting structures (principal); L03.211 Cellulitis of face; F19.10 Other psychoactive substance abuse, uncomplicated
CPT/HCPCS: 36415; 70491; 80053; 83735; 84702; 85025; 85610; 99284; Q9967

== ENCOUNTER 2021-10-07 07:49 | Emergency (ER) | payer MEDICAID, SELFPAY ==
--- NOTE | 2021-10-07 | ECG_ITS ---
Test Reason : dizz Blood Pressure : / mmHG Vent. Rate : 070 BPM Atrial Rate : 070 BPM P-R Int : 132 ms QRS Dur : 082 ms QT Int : 388 ms P-R-T Axes : 039 053 055 degrees QTc Int : 419 ms Normal sinus rhythm Septal infarct , age undetermined Abnormal ECG When compared with ECG of 18-JAN-2021 07:42, QT has shortened Referred By: Generic ED Physician Electronically Signed By:Wayne Gonzalez
--- NOTE | ~2021-10-07 | XR_ITS ---
EXAMINATION: XR CHEST CLINICAL INFORMATION: Cough and fever COMPARISON: None TECHNIQUE: 2 views of the chest were obtained. FINDINGS: No significant abnormality is noted involving the heart, lungs, mediastinum, bony thorax or soft tissues. XR/XR chest 2V IMPRESSION: Unremarkable chest examination.
[2021-10-07 08:02] VITALS: BP 127/75; PULSE 92; RESP 18; TEMP 37.6; O2SAT 99; BMI 20.5
[2021-10-07 08:30] LABS: COVID-19 Test Negative (Negative); IDNOW Serial# 16C4AD1C
[2021-10-07 13:29] LABS: MANUAL DIFF FLAG NO
[2021-10-07 13:31] LABS: Basophils Percent Auto 0.2 % (0-2); Hematocrit 38.7 % (37.0-47.0); Hemoglobin 13.2 g/dl (12.0-16.0); Imm Gran Abs Auto 0.02 X10*3/uL (0.00-0.03); Imm Gran Pct Auto 0.4 % (0.0-0.4); Lymphocytes Absolute Auto 0.9 X10*3/uL (1.2-4.9); Lymphocytes Percent Auto 19.4 % (20-40); Mean Corpuscular HGB Conc 34.1 g/dl (31.0-35.0); Mean Corpuscular Hemoglobin 30.2 pg (27.0-33.0); Mean Corpuscular Volume 88.6 fL (80.0-98.0); Monocytes Absolute Auto 0.5 X10*3/uL (0.1-1.2); Monocytes Percent Auto 10.2 % (2-11); Neutrophils Absolute Auto 3.3 x10*3/uL (2.0-8.3); Neutrophils Percent Auto 69.8 % (45-73); Platelet Count 196 X10*3/uL (160-400); Red Blood Count 4.37 X10*6/uL (4.20-5.50); Red Cell Distribution Width 13.9 % (11.0-16.0); White Blood Count 4.7 X10*3/uL (4.8-10.8)
[2021-10-07 13:36] LABS: UPreg QC Valid YES; Urine Pregnancy NEGATIVE (NEGATIVE)
[2021-10-07 13:45] LABS: Anion Gap 12 (12-20); Blood Urea Nitrogen 11 mg/dL (9-16); Calcium 9.3 mg/dL (8.4-10.2); Carbon Dioxide 25 mmol/L (22-29); Chloride 105 mmol/L (96-108); Creatinine Clr Calc Pharmacy 75.6; Estimated Glomerular Filt Rate > 60; Glucose Random 92 mg/dL (60-115); Potassium 3.8 mmol/L (3.3-5.1); Sodium 138 mmol/L (135-145)
[2021-10-07 13:47] LABS: Amphetamine Screen Urine Not Detected (Not Detect); Barbiturates, Urine Not Detected (Not Detect); Benzodiazepines Screen Urine Not Detected (Not Detect); Cannabinoid Screen Urine Not Detected (Not Detect); Cocaine Screen Urine POSITIVE (Not Detect); Fentanyl, urine Not Detected (Not Detect); Opiate Screen Urine Not Detected (Not Detect); Phencyclidine Screen Urine Not Detected (Not Detect)
[2021-10-07 13:51] LABS: Appearance Urine HAZY; Color Urine YELLOW; Glucose Urine UA NEG (NEG); Leukocyte Esterase Urine NEG (NEG); Nitrite Urine NEG (NEG); PH 6.5 (5.0-8.0); Specific Gravity - Urine <= 1.005 (1.005-1.025); Urine Blood NEG (NEG); Urine Ketones NEG (NEG); Urine Protein NEG (NEG-TRACE)
== END 2021-10-07 15:00 | disposition left against medical advice (07) ==
PROVIDERS: Emergency Provider Emergency Medicine
DX: R50.9 Fever, unspecified (principal); R55 Syncope and collapse; Z20.822 Contact with and (suspected) exposure to COVID-19; F19.10 Other psychoactive substance abuse, uncomplicated; F17.200 Nicotine dependence, unspecified, uncomplicated
CPT/HCPCS: 36415; 71046; 80048; 80307; 81003; 81025; 85025; 87635; 93005; 99283

== ENCOUNTER 2022-11-11 17:09 | Emergency (ER) | payer MEDICAID, SELFPAY ==
--- NOTE | ~2022-11-11 | US_ITS ---
EXAMINATION:US pelvic and transvaginal CLINICAL INFORMATION: Reason for Exam R suprapubic pain, vag d/c COMPARISON: Prior ultrasound from 2013 LMP: Not provided FINDINGS: UTERUS: The uterus is anteverted. Size: 9.3 x 4.5 x 4.8 cm. Uterine mass: Intramural hypoechoic area anterior wall measures 5 x 4 x 6 mm probably small fibroids. Cervix: Grossly unremarkable. Endometrium: No ultrasound evidence of endometrial lesion. endometrial thickness measures 1.4 cm hypertrophic ADNEXA: Normal Right ovary: Normal in size. There are ovarian follicles. Left ovary: There are ovarian follicles. Normal in size. Doppler exam: Normal Doppler flow identified in both ovaries. FREE FLUID: Trace amount of free fluid. OTHER FINDINGS: None US/US pelvic and transvaginal IMPRESSION: * Small intramural hypoechoic area in the anterior wall of the uterus probably small fibroid. * Bilateral ovarian follicles. These are physiologic. * No ultrasound evidence of ovarian torsion.
[2022-11-11 18:17] VITALS: BP 117/67; PULSE 63; RESP 16; TEMP 36.6; O2SAT 100; BMI 23.8
--- NOTE | 2022-11-11 18:17 | ED_ITS ---
HPI - Abdominal Pain General Chief Complaint: Abdominal Pain <MARYURI Noel - Last Filed: 11/11/22 18:22> Stated Complaint: abd pain <MARYURI Noel - Last Filed: 11/11/22 18:22> Time Seen by Provider: 11/11/22 22:22 <MARYURI Noel - Last Filed: 11/11/22 18:22> Related Data Home Medications: Previous Rx's Medication Instructions Recorded doxycycline hyclate 100 mg tablet 100 mg PO BID 14 days #28 tabs 01/19/21 acetaminophen 500 mg tablet 1,000 mg PO QID PRN fever or pain 09/24/21 (Tylenol Extra Strength) #14 tabs cephalexin 500 mg capsule 500 mg PO Q6H 10 days #40 caps 09/24/21 doxycycline monohydrate 100 mg 100 mg PO BID 10 days #20 caps 09/24/21 capsule ibuprofen 800 mg tablet 800 mg PO Q8H PRN pain #14 tabs 09/24/21 <MARYURI Noel - Last Filed: 11/11/22 18:22> Allergies/Adverse Reactions: Allergies Allergy/AdvReac Type Severity Reaction Status Date / Time acetaminophen [From TYLENOL] Allergy Unknown LIVER Verified 11/11/22 18:21 CIRRHOSIS codeine [CODEINE] Allergy Unknown AGITATION Verified 11/11/22 18:21 Codeine Sulfate Allergy Unknown shaky Uncoded 11/11/22 18:21 <MARYURI Noel - Last Filed: 11/11/22 18:22> FOR[facility]LY [facility] Past Medical History Medical History: Medical History Depressed Fibromyalgia Substance abuse <MARYRUI Noel - Last Filed: 11/11/22 18:22> Social History Social History: Social History Alcohol intake: never Patient Tobacco Use Status: Current everyday Tobacco user Substance Use Type: Crack/Cocaine Advance Directives: No Advance Directives Information Provided: No <MARYURI Noel - Last Filed: 11/11/22 18:22> Physical Exam ED Vital Signs: Vital Signs - 24 hr 11/11/22 18:17 Temperature 97.9 F Pulse Rate 63 Respiratory Rate 16 Blood Pressure 117/67 Pulse Oximetry 100 Oxygen Delivery Method Room Air BMI result Body Mass Index 23.8 <MARYURI Noel - Last Filed: 11/11/22 18:22> Vital Signs - 24 hr 11/11/22 18:17 Temperature 97.9 F Pulse Rate 63 Respiratory Rate 16 Blood Pressure 117/67 Pulse Oximetry 100 Oxygen Delivery Method Room Air BMI result Body Mass Index 23.8 <Brendon Garcia MD - Last Filed: 11/11/22 22:27> Course Course Course Narrative: RME: 42yo F w/PMHx fibromyalgia, c/o R lower abdomen/suprapubic pain x 10 days. Admits was seen at clinic on Thursday for similar sx and just received a call she is +for BV. All other STI testing was negative. States pain is p ersistent. Admits to vag d/c, denies bleeding, dysuria, hematuria, N/V Labs, UA, Preg, Pelvic US ordered Full HPI, ROS and PE to be performed by primary ED provider. <MARYURI Noel - Last Filed: 11/11/22 18:22> Medical Decision Making Lab Data MDM Lab Attestation statement: I reviewed the patient's lab results. <Brendon Garcia MD - Last Filed: 11/11/22 22:27> Result Diagrams: 11/11/22 18:30 11/11/22 18:30 <MARYURI Noel - Last Filed: 11/11/22 18:22> Labs: Lab Results 11/11/22 11/11/22 11/11/22 Range/Units 18:30 18:30 21:32 WBC 7.7 (4.8-10.8) X10*3/uL RBC 4.54 (4.20-5.50) X10*6/uL Hgb 13.9 (12.0-16.0) g/dl Hct 40.7 (37.0-47.0) % MCV 89.6 (80.0-98.0) fL MCH 30.6 (27.0-33.0) pg MCHC 34.2 (31.0-35.0) g/dl RDW 13.4 (11.0-16.0) % Plt Count 183 (160-400) X10*3/uL MPV 11.1 (9.4-12.3) fL Immature Gran % (Auto) 0.5 H (0.0-0.4) % Neut % (Auto) 53.9 (45-73) % Lymph % (Auto) 35.4 (20-40) % [place] % (Auto) 8.2 (2-11) % Eos % (Auto) 1.6 (0-4) % Baso % (Auto) 0.4 (0-2) % Lymph # (Auto) 2.7 (1.2-4.9) X10*3/uL [place] # (Auto) 0.6 (0.1-1.2) X10*3/uL Eos # (Auto) 0.1 (0.0-0.4) X10*3/uL Baso # (Auto) 0.0 (0.0-0.2) X10*3/uL Abs Immat Gran (auto) 0.04 H (0.00-0.03) X10*3/uL Absolute Neuts (auto) 4.2 (2.0-8.3) x10*3/uL Absolute Nucleated RBC 0.000 (0.0-0.012) X10*3/uL Nucleated RBC % (auto) 0.0 (0.0-0.2) /100WBC Sodium 141 (135-145) mmol/L Potassium 4.2 (3.3-5.1) mmol/L Chloride 109 H (96-108) mmol/L Carbon Dioxide 23 (22-29) mmol/L Anion Gap 13 (12-20) BUN 20 H (9-16) mg/dL Creatinine 0.77 (0.5-1.4) mg/dL Estim Creat Clear Calc 76.8 Estimated GFR > 60 Random Glucose 82 (60-115) mg/dL Calcium 9.1 (8.4-10.2) mg/dL Magnesium 2.1 (1.6-2.6) mg/dL Total Bilirubin 0.3 (0.0-1.0) mg/dL Direct Bilirubin 0.1 (0.0-0.5) mg/dL AST 16 (5-31) U/L ALT 13 (0-31) U/L Alkaline Phosphatase 60 (39-117) U/L Total Protein 7.7 (6.5-8.0) g/dL Albumin 4.4 (3.5-5.0) g/dL Lipase 37 (8-78) U/L Urine Color Yellow Urine Appearance Clear Urine pH 5.5 (5.0-9.0) Ur Specific [place] >= 1.030 H (1.005-1.025) Urine Protein Negative (Neg-Trace) mg/dL Urine Glucose (UA) Negative (Negative) mg/dL Urine Ketones 15 (Negative) mg/dL Urine Blood Negative (Negative) Urine Nitrite Negative (Negative) Ur Leukocyte Esterase Negative (Negative) Urine Test (NEGATIVE) 11/11/22 Range/Units 21:32 WBC (4.8-10.8) X10*3/uL RBC (4.20-5.50) X10*6/uL Hgb (12.0-16.0) g/dl Hct (37.0-47.0) % MCV (80.0-98.0) fL MCH (27.0-33.0) pg MCHC (31.0-35.0) g/dl RDW (11.0-16.0) % Plt Count (160-400) X10*3/uL MPV (9.4-12.3) fL Immature Gran % (Auto) (0.0-0.4) % Neut % (Auto) (45-73) % Lymph % (Auto) (20-40) % [place] % (Auto) (2-11) % Eos % (Auto) (0-4) % Baso % (Auto) (0-2) % Lymph # (Auto) (1.2-4.9) X10*3/uL [place] # (Auto) (0.1-1.2) X10*3/uL Eos # (Auto) (0.0-0.4) X10*3/uL Baso # (Auto) (0.0-0.2) X10*3/uL Abs Immat Gran (auto) (0.00-0.03) X10*3/uL Absolute Neuts (auto) (2.0-8.3) x10*3/uL Absolute Nucleated RBC (0.0-0.012) X10*3/uL Nucleated RBC % (auto) (0.0-0.2) /100WBC Sodium (135-145) mmol/L Potassium (3.3-5.1) mmol/L Chloride (96-108) mmol/L Carbon Dioxide (22-29) mmol/L Anion Gap (12-20) BUN (9-16) mg/dL Creatinine (0.5-1.4) mg/dL Estim Creat Clear Calc Estimated GFR Random Glucose (60-115) mg/dL Calcium (8.4-10.2) mg/dL Magnesium (1.6-2.6) mg/dL Total Bilirubin (0.0-1.0) mg/dL Direct Bilirubin (0.0-0.5) mg/dL AST (5-31) U/L ALT (0-31) U/L Alkaline Phosphatase (39-117) U/L Total Protein (6.5-8.0) g/dL Albumin (3.5-5.0) g/dL Lipase (8-78) U/L Urine Color Urine Appearance Urine pH (5.0-9.0) Ur Specific [place] (1.005-1.025) Urine Protein (Neg-Trace) mg/dL Urine Glucose (UA) (Negative) mg/dL Urine Ketones (Negative) mg/dL Urine Blood (Negative) Urine Nitrite (Negative) Ur Leukocyte Esterase (Negative) Urine Test NEGATIVE (NEGATIVE) <MARYURI Noel - Last Filed: 11/11/22 18:22> Lab Results 11/11/22 11/11/22 11/11/22 Range/Units 18:30 18:30 21:32 WBC 7.7 (4.8-10.8) X10*3/uL RBC 4.54 (4.20-5.50) X10*6/uL Hgb 13.9 (12.0-16.0) g/dl Hct 40.7 (37.0-47.0) % MCV 89.6 (80.0-98.0) fL MCH 30.6 (27.0-33.0) pg MCHC 34.2 (31.0-35.0) g/dl RDW 13.4 (11.0-16.0) % Plt Count 183 (160-400) X10*3/uL MPV 11.1 (9.4-12.3) fL Immature Gran % (Auto) 0.5 H (0.0-0.4) % Neut % (Auto) 53.9 (45-73) % Lymph % (Auto) 35.4 (20-40) % [place] % (Auto) 8.2 (2-11) % Eos % (Auto) 1.6 (0-4) % Baso % (Auto) 0.4 (0-2) % Lymph # (Auto) 2.7 (1.2-4.9) X10*3/uL [place] # (Auto) 0.6 (0.1-1.2) X10*3/uL Eos # (Auto) 0.1 (0.0-0.4) X10*3/uL Baso # (Auto) 0.0 (0.0-0.2) X10*3/uL Abs Immat Gran (auto) 0.04 H (0.00-0.03) X10*3/uL Absolute Neuts (auto) 4.2 (2.0-8.3) x10*3/uL Absolute Nucleated RBC 0.000 (0.0-0.012) X10*3/uL Nucleated RBC % (auto) 0.0 (0.0-0.2) /100WBC Sodium 141 (135-145) mmol/L Potassium 4.2 (3.3-5.1) mmol/L Chloride 109 H (96-108) mmol/L Carbon Dioxide 23 (22-29) mmol/L Anion Gap 13 (12-20) BUN 20 H (9-16) mg/dL Creatinine 0.77 (0.5-1.4) mg/dL Estim Creat Clear Calc 76.8 Estimated GFR > 60 Random Glucose 82 (60-115) mg/dL Calcium 9.1 (8.4-10.2) mg/dL Magnesium 2.1 (1.6-2.6) mg/dL Total Bilirubin 0.3 (0.0-1.0) mg/dL Direct Bilirubin 0.1 (0.0-0.5) mg/dL AST 16 (5-31) U/L ALT 13 (0-31) U/L Alkaline Phosphatase 60 (39-117) U/L Total Protein 7.7 (6.5-8.0) g/dL Albumin 4.4 (3.5-5.0) g/dL Lipase 37 (8-78) U/L Urine Color Yellow Urine Appearance Clear Urine pH 5.5 (5.0-9.0) Ur Specific [place] >= 1.030 H (1.005-1.025) Urine Protein Negative (Neg-Trace) mg/dL Urine Glucose (UA) Negative (Negative) mg/dL Urine Ketones 15 (Negative) mg/dL Urine Blood Negative (Negative) Urine Nitrite Negative (Negative) Ur Leukocyte Esterase Negative (Negative) Urine Test (NEGATIVE) 11/11/22 Range/Units 21:32 WBC (4.8-10.8) X10*3/uL RBC (4.20-5.50) X10*6/uL Hgb (12.0-16.0) g/dl Hct (37.0-47.0) % MCV (80.0-98.0) fL MCH (27.0-33.0) pg MCHC (31.0-35.0) g/dl RDW (11.0-16.0) % Plt Count (160-400) X10*3/uL MPV (9.4-12.3) fL Immature Gran % (Auto) (0.0-0.4) % Neut % (Auto) (45-73) % Lymph % (Auto) (20-40) % [place] % (Auto) (2-11) % Eos % (Auto) (0-4) % Baso % (Auto) (0-2) % Lymph # (Auto) (1.2-4.9) X10*3/uL [place] # (Auto) (0.1-1.2) X10*3/uL Eos # (Auto) (0.0-0.4) X10*3/uL Baso # (Auto) (0.0-0.2) X10*3/uL Abs Immat Gran (auto) (0.00-0.03) X10*3/uL Absolute Neuts (auto) (2.0-8.3) x10*3/uL Absolute Nucleated RBC (0.0-0.012) X10*3/uL Nucleated RBC % (auto) (0.0-0.2) /100WBC Sodium (135-145) mmol/L Potassium (3.3-5.1) mmol/L Chloride (96-108) mmol/L Carbon Dioxide (22-29) mmol/L Anion Gap (12-20) BUN (9-16) mg/dL Creatinine (0.5-1.4) mg/dL Estim Creat Clear Calc Estimated GFR Random Glucose (60-115) mg/dL Calcium (8.4-10.2) mg/dL Magnesium (1.6-2.6) mg/dL Total Bilirubin (0.0-1.0) mg/dL Direct Bilirubin (0.0-0.5) mg/dL AST (5-31) U/L ALT (0-31) U/L Alkaline Phosphatase (39-117) U/L Total Protein (6.5-8.0) g/dL Albumin (3.5-5.0) g/dL Lipase (8-78) U/L Urine Color Urine Appearance Urine pH (5.0-9.0) Ur Specific [place] (1.005-1.025) Urine Protein (Neg-Trace) mg/dL Urine Glucose (UA) (Negative) mg/dL Urine Ketones (Negative) mg/dL Urine Blood (Negative) Urine Nitrite (Negative) Ur Leukocyte Esterase (Negative) Urine Test NEGATIVE (NEGATIVE) <Brendon Garcia MD - Last Filed: 11/11/22 22:27> Radiology Impression Discussion of test interpretation with radiology: I have reviewed the radiologist's reading. <Brendon Garcia MD - Last Filed: 11/11/22 22:27> Radiologist Impression: US/US pelvic and transvaginal IMPRESSION: * Small intramural hypoechoic area in the anterior wall of the uterus probably small fibroid. * Bilateral ovarian follicles. These are physiologic. * No ultrasound evidence of ovarian torsion. Dictated By:Sahra Mckeon MD <Brendon Garcia MD - Last Filed: 11/11/22 22:27> Discharge Plan Discharge Clinical Impression: Eloped from emergency department <MARYURI Noel - Last Filed: 11/11/22 18:22> Patient Disposition: Elopement <MARYURI Noel - Last Filed: 11/11/22 18:22> Prescriptions: No Action doxycycline hyclate 100 mg tablet 100 mg PO BID 14 Days Qty: 28 0RF ibuprofen 800 mg tablet 800 mg PO Q8H PRN (Reason: pain) Qty: 14 0RF doxycycline monohydrate 100 mg capsule 100 mg PO BID 10 Days Qty: 20 0RF cephalexin 500 mg capsule 500 mg PO Q6H 10 Days Qty: 40 0RF acetaminophen [Tylenol Extra Strength] 500 mg tablet 1,000 mg PO QID PRN (Reason: fever or pain) Qty: 14 0RF <MARYURI Noel - Last Filed: 11/11/22 18:22>
[2022-11-11 18:35] LABS: MANUAL DIFF FLAG NO
[2022-11-11 18:56] LABS: Basophils Percent Auto 0.4 % (0-2); Eosinophils Absolute Auto 0.1 X10*3/uL (0.0-0.4); Eosinophils Percent Auto 1.6 % (0-4); Hematocrit 40.7 % (37.0-47.0); Hemoglobin 13.9 g/dl (12.0-16.0); Imm Gran Abs Auto 0.04 X10*3/uL (0.00-0.03); Imm Gran Pct Auto 0.5 % (0.0-0.4); Lymphocytes Absolute Auto 2.7 X10*3/uL (1.2-4.9); Lymphocytes Percent Auto 35.4 % (20-40); Mean Corpuscular HGB Conc 34.2 g/dl (31.0-35.0); Mean Corpuscular Hemoglobin 30.6 pg (27.0-33.0); Mean Corpuscular Volume 89.6 fL (80.0-98.0); Mean Platelet Volume 11.1 fL (9.4-12.3); Monocytes Absolute Auto 0.6 X10*3/uL (0.1-1.2); Monocytes Percent Auto 8.2 % (2-11); Neutrophils Absolute Auto 4.2 x10*3/uL (2.0-8.3); Neutrophils Percent Auto 53.9 % (45-73); Platelet Count 183 X10*3/uL (160-400); Red Blood Count 4.54 X10*6/uL (4.20-5.50); Red Cell Distribution Width 13.4 % (11.0-16.0); White Blood Count 7.7 X10*3/uL (4.8-10.8)
[2022-11-11 19:00] LABS: Alanine Aminotransferase 13 U/L (0-31); Albumin Level 4.4 g/dL (3.5-5.0); Alkaline Phosphatase 60 U/L (39-117); Anion Gap 13 (12-20); Aspartate Amino Transferase 16 U/L (5-31); Bilirubin Direct 0.1 mg/dL (0.0-0.5); Bilirubin Total 0.3 mg/dL (0.0-1.0); Blood Urea Nitrogen 20 mg/dL (9-16); Calcium 9.1 mg/dL (8.4-10.2); Carbon Dioxide 23 mmol/L (22-29); Chloride 109 mmol/L (96-108); Creatinine Clr Calc Pharmacy 76.8; Estimated Glomerular Filt Rate > 60; Glucose Random 82 mg/dL (60-115); Lipase 37 U/L (8-78); Magnesium 2.1 mg/dL (1.6-2.6); Potassium 4.2 mmol/L (3.3-5.1); Sodium 141 mmol/L (135-145); Total Protein 7.7 g/dL (6.5-8.0)
[2022-11-11 21:38] LABS: Appearance Urine Clear; Color Urine Yellow; Glucose Urine UA Negative (Negative); Leukocyte Esterase Urine Negative (Negative); Nitrite Urine Negative (Negative); PH 5.5 (5.0-9.0); Specific Gravity - Urine >= 1.030 (1.005-1.025); Urine Blood Negative (Negative); Urine Ketones 15 mg/dL (Negative); Urine Protein Negative (Neg-Trace)
[2022-11-11 21:40] LABS: UPreg QC Valid YES; Urine Pregnancy NEGATIVE (NEGATIVE)
== END 2022-11-11 22:30 | disposition left against medical advice (07) ==
PROVIDERS: Physician Assistant; Emergency Provider Emergency Medicine
DX: R10.30 Lower abdominal pain, unspecified (principal); R10.2 Pelvic and perineal pain; F17.200 Nicotine dependence, unspecified, uncomplicated; Z71.6 Tobacco abuse counseling; Z79.899 Other long term (current) drug therapy
CPT/HCPCS: 36415; 76830; 76856; 80048; 80076; 81003; 81025; 83690; 83735; 85025; 99282; 99284

== ENCOUNTER 2023-05-20 | Outpatient (REF) | payer MEDICAID, SELFPAY ==
[2023-05-21 16:55] LABS: CT PCR NOT DETECTED (Not Detect.); NG PCR NOT DETECTED (Not Detect.)
[2023-05-22 09:21] LABS: BV Int Neg Control Negative (Negative); BV Int Pos Control Positive (Positive)
== END 2023-05-20 00:01 | disposition home or self-care (01) ==
LOC: HO.HHCLNP
PROVIDERS: Visit Provider Emergency Medicine
DX: N89.8 Other specified noninflammatory disorders of vagina (principal)
CPT/HCPCS: 0353U; 87480; 87510; 87660; 88142

== ENCOUNTER 2023-05-22 11:30 | Outpatient (REF) | payer MEDICAID, SELFPAY ==
[2023-05-25 05:33] LABS: HIV AB/AG Nonreactive (Nonreactive); HIV Num 1 0.06 S/CO (0.00-0.99); ~HepC Num1 15.04 S/CO (0.00-0.79); ~Hepatitis C Antibody Reactive (Nonreactive)
[2023-05-25 09:54] LABS: RPR Rapid Plasma Reagin NON-REACTIVE (NON-REACTIVE)
[2023-05-27 17:28] LABS: HCV Log PCR <1.18 NOT DETECTED Log IU/mL (NOT DETECTED); HepC Viral Load <15 NOT DETECTED IU/mL (NOT DETECTED)
== END 2023-05-22 11:31 | disposition home or self-care (01) ==
LOC: HO.HHCL 11:30
PROVIDERS: Visit Provider Emergency Medicine
DX: Z11.3 Encounter for screening for infections with a predominantly sexual mode of transmission (principal)
CPT/HCPCS: 36415; 86592; 86803; 87389; 87522

== ENCOUNTER 2023-06-19 14:13 | Outpatient (REF) | payer MEDICAID, SELFPAY ==
--- NOTE | ~2023-06-19 | US_ITS ---
EXAMINATION: US PELVIS CLINICAL INFORMATION: Vaginal discharge. LMP 05/23/2023. COMPARISON: 11/11/2022 TECHNIQUE: Ultrasound of the pelvis is performed using both transabdominal and transvaginal transducers along with Doppler. Transvaginal imaging is performed due to inadequate visualization transabdominally. FINDINGS: Uterus: The uterus is anteverted. Uterine echotexture is heterogeneous. The uterus measures 10.0 x 4.9 x 5.5 cm. The double layer endometrial stripe measures 1.3 cm in thickness. Cervical nabothian cysts. Posterior intramural fibroid measures 5 x 5 x 7 mm. Left intramural fibroid measures 1.1 x 1.1 x 1.3 cm. Adnexa: Both ovaries are visualized. There is small pelvic ascites. Left pelvic venous congestion. Right ovary measures 3.3 x 1.3 x 1.9 cm. Left ovary measures 3.5 x 1.8 x 1.8 cm. US/US pelvic and transvaginal IMPRESSION: Uterine fibroids. Thickened endometrium. Advise correlation with menstrual history. Left pelvic venous congestion.
== END 2023-06-19 14:14 | disposition home or self-care (01) ==
LOC: HO.US 14:13
PROVIDERS: Visit Provider Emergency Medicine
DX: N89.8 Other specified noninflammatory disorders of vagina (principal)
CPT/HCPCS: 76830; 76856

== ENCOUNTER 2023-07-02 10:03 | Outpatient (AMB) | payer MEDICAID, SELFPAY ==
--- NOTE | 2023-07-02 10:38 | A.OFFVIS_ITS ---
Intake Vital Signs 07/02/23 10:54 Height 5 ft 2 in Weight 127 lb 13.89 oz BMI 23.4 BP 112/74 Intake Visit Reasons: New patient pelvic pain ok per Adiel Train Driver Required: No Information Interpreted: non-clinical & clinical Computer Network Support Specialist: Computer Network Support Specialist Present (Toya ETIENNE) Allergies acetaminophen [From TYLENOL] Allergy (Unknown, Verified 07/02/23 11:03) LIVER CIRRHOSIS codeine [CODEINE] Allergy (Unknown, Verified 07/02/23 11:03) AGITATION Codeine Sulfate Allergy (Unknown, Uncoded 07/02/23 11:03) shaky Is last menstrual period known: Yes Last menstrual period: 06/26/23 HPI HPI Comments History of Present Illness Details The patient is presenting with bilateral lower pelvic pain started few years ago. It's intermittent in nature lasting few seconds and occurs 3x/day. It is cyclic gets worse before during menstrual cycle in improves afterwards. it is associated with heavy menstrual cycles associated with passage of blood clots and cramping, no constipation, no dysuria, frequency or incontinence, no n/v, no feverishness Last Pap smear was 06 11 was negative no HPV done No previous mammogram [facility] Medical History Substance abuse Fibromyalgia Depressed Social History Alcohol intake: never Patient Tobacco Use Status: Current everyday Tobacco user Substance Use Type: Crack/Cocaine Female Reproductive History Menstrual Date of last menstrual period: 06/26/23 Review of Systems Const All systems reviewed & are unremarkable except as noted in HPI and below Card Reports as per HPI Resp Reports as per HPI GI Reports as per HPI and Reports no additional complaints Reports as per HPI Physical Exam Vital Signs: Last Vital Signs BP 112/74 07/02/23 10:54 BMI result Body Mass Index 23.4 Const General: cooperative, healthy appearing and comfortable Chest Chest palpation & inspection: normal inspection of the chest and normal palpation of entire chest wall Breast/axilla inspection: normal inspection of the breasts and normal inspection of the axillae Breast/axilla palpation: normal palpation of the breasts, normal palpation of the axillae and no axillary lymphadenopathy Resp Effort & Inspection: normal respiratory effort Auscultation: clear to auscultation bilaterally Percussion: percussion normal Cardio Palpation: normal PMI Rate: regular rate Rhythm: regular rhythm Heart sounds: no murmurs and no rubs Peripheral pulses: Peripheral pulses 2+ throughout GI Inspection: Yes normal to inspection Palpation (GI): Soft to palpation, nontender, no guarding, not rigid and No hepatosplenomegaly present Percussion: Yes normal to percussion Auscultation: normal bowel sounds Rectal Exam - Female: deferred General: Yes bladder normal to palpation External Female Exam: No lesion Speculum Exam - Vagina: normal appearance of the vagina, normal palpation, normal vaginal discharge and not erythematous Speculum Exam - Cervix: normal appearance of the cervix and normal palpation Bimanual exam- vagina & uterus: normal bimanual exam, normal palpation, uterine size normal, bladder normal to palpation, consistency normal and normal palpation Bimanual Exam- Adnexa, other: normal adnexae, no masses and no tenderness Results AMB Test Urine AMB Test Urine Negative Last Edit by Toya Rosa CMA on 10:40 AMB Urinalysis Dipstick UR Leukocytes Trace Last Edit by Toya Rosa CMA on 07/02/23 10:41 UR Nitrite Negative Last Edit by Toya Rosa CMA on 07/02/23 10:41 UR Urobilinogen Normal Last Edit by Toya Rosa CMA on 07/02/23 10:41 UR Protein Negative Last Edit by Toya Rosa CMA on 07/02/23 10:41 UR Ph 6.0 Last Edit by Toya Rosa CMA on 07/02/23 10:41 UR Blood Negative Last Edit by Toya Rosa CMA on 07/02/23 10:41 UR Specific Lewis 1.015 Last Edit by Toya Rosa CMA on 07/02/23 10:41 UR Ketone Negative Last Edit by Toya Rosa CMA on 07/02/23 10:41 UR Bilirubin Negative Last Edit by Toya Rosa CMA on 07/02/23 10:41 UR Glucose Negative Last Edit by Toya Rosa CMA on 07/02/23 10:41 Results Reviewed Results Reviewed: Laboratory Last Values Urine pH (Clinic) 6.0 07/02/23 10:40 Specific Lewis (Clinic) 1.015 07/02/23 10:40 Ur Protein (Clinic) Negative 07/02/23 10:40 Ur Ketones (Clinic) Negative 07/02/23 10:40 Urine Blood (Clinic) Negative 07/02/23 10:40 Urine Nitrite Negative 07/02/23 10:40 Urine Bilirubin (Clinic) Negative 07/02/23 10:40 Urobilinogen (Clinic) Normal 07/02/23 10:40 Leukocyte Esterase (Clinic) Trace 07/02/23 10:40 Urine Glucose (Clinic) Negative 07/02/23 10:40 Tst Clinic Negative 07/02/23 10:40 Assessment & Plan Assessment & Plan (1) Abnormal uterine bleeding (AUB): Code(s): N93.9 - Abnormal uterine and vaginal bleeding, unspecified Plan: GC and chlamydia taken CBC, TSH, prolactin, HCG ordered. Recent Pap seen pelvic ultrasound done. Discussed with the patient the different causes of abnormal bleeding including thyroid disorders, uterine and ovarian pathology, endometrial hyperplasia, carcinoma and other potential causes. Discussed with the patient the work up including CBC (to r/o anemia), TSH, pelvic Ultrasound, endometrial biopsy to r/o endometrial pathology. All questions answered and the patient verbalized understanding. Instructed the patient to schedule an appointment for an endometrial biopsy in 2 weeks. (2) Pelvic pain: Code(s): R10.2 - Pelvic and perineal pain Plan: Urine dip and test done in the office were both negative. GC and chlamydia taken and pelvic ultrasound recently done. Discussed with the patient the differential diagnosis of pelvic pain including but not limited to adnexal, uterine masses, pelvic infections (PID), GI the (Irritable bowel syndrome, diverticulitis, others), musculoskeletal, myofascial pain abdominal wall , adhesions, endometriosis, psychological and others causes. Instructed the patient to schedule follow-up appointment in 2 weeks (3) Uterine myoma: Code(s): D25.9 - Leiomyoma of uterus, unspecified Plan: Discussed with the patient the results of the ultrasound Discussed with the patient risk of myosarcoma and symptoms that are caused by myomas including but not limited to pelvic pain, pressure symptoms, abnormal uterine bleeding. In addition discussed with the patient options of treatment for myomas including: Serial ultrasounds periodically to follow-up on the size of the myoma while targeting the treatment against fibroids related symptoms ( control pills, Mirena IUD, progesterone treatment, GnRH agonist/antagonist, uterine artery embolization or endometrial ablation) versus surgical treatment including hysterectomy and or myomectomy. All pros and cons, risks and benefits of all options were discussed with the patient. The patient understands that delay in surgical treatment in case of myosarcoma can affect her prognosis, after further discussion, the patient decided to think about it and get back to us next visit Orders: Orders AMB HCG Urine Test Today Z32.02 - Encounter for test, result negative AMB Urinalysis Dipstick Today R10.2 - Pelvic and perineal pain CT NG by PCR Today R10.2 - Pelvic and perineal pain Complete Blood Count no Diff Today N93.9 - Abnormal uterine and vaginal bleeding, unspecified TSH reflex Free T4 Today N93.9 - Abnormal uterine and vaginal bleeding, unspecified HCG Quantitative Today N93.9 - Abnormal uterine and vaginal bleeding, unspecified MM screening mammo BI Today Z12.31 - Encounter for screening mammogram for malignant neoplasm of breast Prolactin Today N93.9 - Abnormal uterine and vaginal bleeding, unspecified Coding Level of Care Code New Pt Level 3 (00643) Diagnoses Abnormal uterine bleeding (AUB) N93.9 Pelvic pain R10.2 Uterine myoma D25.9
[2023-07-02 10:54] VITALS: BP 112/74; BMI 23.4
== END 2023-07-02 11:26 | disposition home or self-care (01) ==
PROVIDERS: Visit Provider Obstetrics & Gynecology
DX: N93.9 Abnormal uterine and vaginal bleeding, unspecified (principal); R10.2 Pelvic and perineal pain; D25.9 Leiomyoma of uterus, unspecified; Z32.02 Encounter for pregnancy test, result negative
CPT/HCPCS: 99203

== ENCOUNTER 2023-07-02 10:03 | Outpatient (REF) | payer MEDICAID, SELFPAY ==
[2023-07-02 12:48] LABS: Hematocrit 39.7 % (37.0-47.0); Hemoglobin 13.5 g/dl (12.0-16.0); Mean Corpuscular Hemoglobin 30.4 pg (27.0-33.0); Mean Corpuscular Volume 89.4 fL (80.0-98.0); Mean Platelet Volume 11.6 fL (9.4-12.3); Platelet Count 194 X10*3/uL (160-400); Red Blood Count 4.44 X10*6/uL (4.20-5.50); Red Cell Distribution Width 13.1 % (11.0-16.0); White Blood Count 6.3 X10*3/uL (4.8-10.8)
[2023-07-02 13:46] LABS: HCG Quantitative < 2 mIU/mL; TSH reflex Free T4 0.76 uIU/mL (0.32-4.0)
[2023-07-02 14:34] LABS: CT PCR NOT DETECTED (Not Detect.); NG PCR NOT DETECTED (Not Detect.)
[2023-07-03 09:29] LABS: Prolactin 6.3 ng/mL
== END 2023-07-02 10:04 | disposition home or self-care (01) ==
LOC: HO.LAB 10:03
PROVIDERS: Visit Provider Obstetrics & Gynecology
DX: R10.2 Pelvic and perineal pain (principal); N93.9 Abnormal uterine and vaginal bleeding, unspecified
CPT/HCPCS: 0353U; 81002; 81025; 84146; 84443; 84702; 85027; 99202

== ENCOUNTER → 2023-09-10 10:00 | Outpatient (BNV) | payer OTHER, SELFPAY | PROVIDERS: Visit Provider Radiology Diagnostic Radiology | DX: Z12.31 Encounter for screening mammogram for malignant neoplasm of breast (principal) | CPT/HCPCS: 77063; 77067 ==

== ENCOUNTER 2023-09-10 10:03 | Outpatient (REF) | payer OTHER, SELFPAY ==
--- NOTE | ~2023-09-10 | MM_ITS ---
EXAMINATION: MM SCREENING DIGITAL BREAST TOMOSYNTHESIS, BILATERAL CLINICAL INFORMATION: Screening. Asymptomatic. COMPARISON: Mammography: This study is a baseline mammogram. TECHNIQUE: Digital breast tomosynthesis is performed in both the craniocaudal and mediolateral oblique views along with computer-aided detection (CAD). Synthesized 2D images are generated from the tomosynthesis. FINDINGS: The breasts are heterogeneously dense, which may obscure small masses (ACR BI-RADS breast composition Category c). There are no significant masses, abnormal calcifications, or other abnormalities. MM/MM tomosynthesis screening BI IMPRESSION: No mammographic evidence of malignancy. ASSESSMENT: BI-RADS BI-RADS 1 - Negative RECOMMENDATION: Routine annual mammography screening. 1 year F/U This examination should not preclude the clinical evaluation of a suspicious palpable abnormality. This patient's information was entered into a reminder system with a target due date for their next mammogram.
== END 2023-09-10 10:04 | disposition home or self-care (01) ==
LOC: HO.MAMMO 10:03
PROVIDERS: Visit Provider Obstetrics & Gynecology
DX: Z12.31 Encounter for screening mammogram for malignant neoplasm of breast (principal)
CPT/HCPCS: 77063; 77067

== ENCOUNTER 2023-09-28 10:45 | Outpatient (REF) | payer OTHER, SELFPAY | END 2023-09-28 10:46 | disposition home or self-care (01) | LOC: HO.LNP 10:45 | PROVIDERS: Visit Provider Obstetrics & Gynecology | DX: N93.9 Abnormal uterine and vaginal bleeding, unspecified (principal); Z32.02 Encounter for pregnancy test, result negative | CPT/HCPCS: 58100; 81025; 88305 ==

== ENCOUNTER 2023-09-28 10:45 | Outpatient (AMB) | payer OTHER, SELFPAY ==
--- NOTE | 2023-09-28 10:48 | MHC.OFFVIS ---
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 Resurfacing Machine Operators Present (Toya Rosa JAIMIE) Accompanied by: Self / Same As Patient Allergies acetaminophen [From TYLENOL] Allergy (Unknown, Verified 09/28/23 10:58) LIVER CIRRHOSIS codeine [CODEINE] Allergy (Unknown, Verified 09/28/23 10:58) AGITATION Codeine Sulfate Allergy (Unknown, Uncoded 09/28/23 10:58) shaky Is last menstrual period known: Yes Last menstrual period: 09/11/23 HPI HPI Comments History of Present Illness Details Presenting for EMB [facility] Medical History (Reviewed 07/02/23 @ : by Jayden Chun MD) Substance abuse Fibromyalgia Depressed Social History (Reviewed 07/02/23 @ : by Jayden Chun MD) Alcohol intake: never Patient Tobacco Use Status: Current everyday Tobacco user Substance Use Type: Crack/Cocaine Female Reproductive History Menstrual Date of last menstrual period: 09/11/23 Physical Exam Vital Signs: Last Vital Signs BP 108/60 09/28/23 10:57 BMI result Body Mass Index 23.4 Office Procedures Endometrial Biopsy Details: The patient was counseled regarding the indication and benefits of endometrial sampling to rule out endometrial pathology including not limited to endometrial hyperplasia or endometrial cancer and others; The alternatives (Either do nothing vs. hysteroscopy D&C) & the risks were discussed with the patient including but not limited: pain, uterine perforation, bleeding, infection, possible injury to bladder, bowel, ureter, possible need for blood transfusion with all its possible risks. The patient verbalized understanding all questions answered and signed consent. Urine test done in the office was negative The patient was placed into the dorsal lithotomy position; a speculum was inserted in the vagina. Using aseptic technique for the procedure, the cervix was cleansed with Betadine. The anterior lip of the cervix was grasped with a single tooth tenaculum. The uterus was sounded to 7 cm with a 4 mm Pipelle was used. Tissues samples were obtained and placed in formalin, in a patient labeled container and sent to the pathology department. At the end of the procedure, there was minimal bleeding noted The patient tolerated the procedure well and was discharged in good condition with the following instructions: Nothing in the vagina until the bleeding stops. No sex until the bleeding stops, to call if any of the following occurs: fever (>100.4), flu-like symptoms, abdominal pain, heavy bleeding, four smelling vaginal discharge. The patient was instructed to schedule a Follow up appointment in 2 weeks to discuss pathology results of the biopsy and treatment options. This note was generated with a voice recognition program. Some errors may have been overlooked during the review of this note. Sometimes these errors may affect the content or meaning of a given sentence. 17899-Vktspdluuac Biopsy Results AMB Test Urine AMB Test Urine Negative Last Edit by Toya Rosa CMA on 09/28/23 11:00 Results Reviewed Results Reviewed: Laboratory Last Values Tst Clinic Negative 09/28/23 10:59 Assessment & Plan Assessment & Plan (1) Abnormal uterine bleeding (AUB): Code(s): N93.9 - Abnormal uterine and vaginal bleeding, unspecified Plan: EMB done, see procedure note Orders: Orders AMB HCG Urine Test Today Z32.02 - Encounter for test, result negative AMB Endometrial Biopsy Today N93.9 - Abnormal uterine and vaginal bleeding, unspecified Coding Level of Care Code Procedure Only Diagnoses Abnormal uterine bleeding (AUB) N93.9 CPT Codes Endometrial Biopsy - CPT: 20460-Aayiyerimhg Biopsy ([id number])
[2023-09-28 10:57] VITALS: BP 108/60; BMI 23.4
== END 2023-09-28 11:19 | disposition home or self-care (01) ==
LOC: HO.HWS 10:45
PROVIDERS: Visit Provider Obstetrics & Gynecology
DX: N93.9 Abnormal uterine and vaginal bleeding, unspecified (principal); Z32.02 Encounter for pregnancy test, result negative
CPT/HCPCS: 58100

== ENCOUNTER 2023-11-23 12:33 | Outpatient (AMB) | payer OTHER, SELFPAY ==
--- NOTE | 2023-11-23 12:38 | A.OFFVIS_ITS ---
Intake Visit Reasons: EMB Results/DO NOT RS Allergies acetaminophen [From TYLENOL] Allergy (Unknown, Verified 11/23/23 12:39) LIVER CIRRHOSIS codeine [CODEINE] Allergy (Unknown, Verified 11/23/23 12:39) AGITATION Codeine Sulfate Allergy (Unknown, Uncoded 09/28/23 10:58) lizbeth HPI Comments Details: The patient is presenting for follow-up to discuss the results of her abnormal uterine bleeding workup and options of treatment. The following workup was don e.: H&H= 13.5/39.7 TSH, prolactin, hCG, GC and chlamydia were negative. Endometrial biopsy pathology showed the following: Benign early secretory endometrium with focal benign inactive glands, and fragments of benign endocervical glandular epithelium; no atypia or carcinoma Pap smear was done at the patient is PCP in 06/11 was negative. Mammogram in 09/12 was BI-RADS 1 Pelvic ultrasound showed the following: Uterus: The uterus is anteverted. Uterine echotexture is heterogeneous. The uterus measures 10.0 x 4.9 x 5.5 cm. The double layer endometrial stripe measures 1.3 cm in thickness. Cervical nabothian cysts. Posterior intramural fibroid measures 5 x 5 x 7 mm. Left intramural fibroid measures 1.1 x 1.1 x 1.3 cm. Adnexa: Both ovaries are visualized. There is small pelvic ascites. Left pelvic venous congestion. Right ovary measures 3.3 x 1.3 x 1.9 cm. Left ovary measures 3.5 x 1.8 x 1.8 cm. [facility] Medical History (Updated 07/02/23 @ 11:26 by Jayden Chun MD) Substance abuse Fibromyalgia Depressed Surgical History (Updated 11/23/23 @ 13:12 by Jayden Chun MD) H/O tubal ligation Social History Alcohol intake: never Patient Tobacco Use Status: Current everyday Tobacco user Substance Use Type: Crack/Cocaine Review of Systems Const All systems reviewed & are unremarkable except as noted in HPI and below Reports as per HPI and Reports no additional complaints GI Reports no additional complaints Reports no additional complaints Assessment & Plan Assessment & Plan (1) Uterine myoma: Code(s): D25.9 - Leiomyoma of uterus, unspecified Category: Medical Plan: Discussed with the patient the findings on pelvic ultrasound & the risk of myosarcoma; discussed with the patient the options of treatment including expectant management versus hysterectomy; the pros and cons, risks benefits of each approach were discussed with the patient including the fact that in cases of myosarcoma, surgical treatment can lead to early diagnosis and positively affects the prognosis; after further discussion, the patient decided to proceed with expectant management. Will repeat pelvic ultrasound periodically. Instructions given to patient to call in case any of the following occurs: pressure symptoms, abnormal uterine bleeding, pelvic pain; and to schedule a six-month ultrasound follow-up appointment . All questions answered, the patient verbalized understanding and agreed with the plan . (2) Abnormal uterine bleeding (AUB): Code(s): N93.9 - Abnormal uterine and vaginal bleeding, unspecified Category: Medical Plan: Discussed with the patient the results of the work up done and options of treatment including Lysteda, control pills, Mirena IUD, endometrial ablation and hysterectomy. All pros, cons, risks and benefits if each option was discussed with the patient and the patient decided to go ahead with Mirena IUD so a more detailed discussion about it was conducted including mechanism of action, risks (uterine perforation, infection, injury to bladder, bowel, displacement, and others) benefits (hypo menorrhea, amenorrhea, ...). GC/CT were taken and the patient was instructed to schedule Mirena IUD insertion on day 1- 5 of next cycle . All questions answered, the patient verbalized understanding Orders: Orders US pelvic and transvaginal 6 Months D25.9 - Leiomyoma of uterus, unspecified Coding Level of Care Code Est Pt Level 3 (06834) Diagnoses Uterine myoma D25.9 Abnormal uterine bleeding (AUB) N93.9
== END 2023-11-23 13:18 | disposition home or self-care (01) ==
LOC: HO.HWS 12:33
PROVIDERS: Visit Provider Obstetrics & Gynecology
DX: D25.9 Leiomyoma of uterus, unspecified (principal); N93.9 Abnormal uterine and vaginal bleeding, unspecified
CPT/HCPCS: 99213

== ENCOUNTER → 2023-11-23 12:33 | Outpatient (BNVA) | payer OTHER, SELFPAY | PROVIDERS: Visit Provider Obstetrics & Gynecology | DX: D25.9 Leiomyoma of uterus, unspecified (principal); N93.9 Abnormal uterine and vaginal bleeding, unspecified | CPT/HCPCS: 99212 ==

== ENCOUNTER 2024-05-25 10:54 | Outpatient (REF) | payer OTHER, SELFPAY | END 2024-05-25 10:55 | disposition home or self-care (01) | LOC: HO.US 10:54 | PROVIDERS: Visit Provider Obstetrics & Gynecology | DX: D25.9 Leiomyoma of uterus, unspecified (principal) | CPT/HCPCS: 76830; 76856 ==

== ENCOUNTER 2024-08-15 15:34 | Outpatient (AMB) | payer OTHER, SELFPAY ==
--- NOTE | 2024-08-15 15:36 | A.OFFVIS_ITS ---
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 Complaining of vulvovaginal or discharge associated with foul odor Ultrasound done in 06/12 showed the following: Uterus: The uterus is anteverted and anteflexed measuring 10.9 x 5.1 x 5.2 cm. The double wall endometrial thickness is 9 mm. The uterus is smooth in contour and has normal myometrial echogenicity. 2 uterine fibroids are seen one submucosal near the fundus measuring 1.6 x 1.3 x 1.8 cm with another subserosal measuring 1.8 x 2.0 x 0.5 cm. Adnexa: Both ovaries are visualized. There is normal color flow to the adnexa. There is no ovarian torsion. There is no pelvic ascites or fluid collection. Right ovary measures 1.5 x 2.0 x 1.7 for a volume of 2.7 cc. There is anew round structure with a cystic center is seen adjacent to the right ovary measuring 1.4 x 1.2 x 1.4 cm Left ovary measures 4.0 x 2.3 x 2 2.3 cm for a volume of 10.8 cc which includes a 2.2 cm benign cyst. [facility] Medical History Substance abuse Fibromyalgia Depressed Surgical History H/O tubal ligation Social History Alcohol intake: never Patient Tobacco Use Status: Current everyday Tobacco user Substance Use Type: Crack/Cocaine Review of Systems Const All systems reviewed & are unremarkable except as noted in HPI and below Reports as per HPI and Reports no additional complaints GI Reports no additional complaints Reports no additional complaints Physical Exam General: Yes no CVA tenderness External Female Exam: normal external appearance and normal appearance of the urethra Speculum Exam - Vagina: normal appearance of the vagina, normal palpation, no lesions and no masses Speculum Exam - Cervix: normal appearance of the cervix, normal palpation, no lesions, no masses and nontender Bimanual exam- vagina & uterus: normal bimanual exam, normal palpation, uterine size normal, normal palpation, uterine shape normal, No Cervical tenderness present and non-tender Bimanual Exam- Adnexa, other: normal adnexae Back/Spine/Pelvis Back: no CVA tenderness Assessment & Plan Assessment & Plan (1) Uterine myoma: Code(s): D25.9 - Leiomyoma of uterus, unspecified Category: Medical Plan: Discussed with the patient the findings on pelvic ultrasound & the risk of myosarcoma; discussed with the patient the options of treatment including expectant management versus hysterectomy; the pros and cons, risks benefits of each approach were discussed with the patient including the fact that in cases of myosarcoma, surgical treatment can lead to early diagnosis and positively affects the prognosis; after further discussion, the patient decided to proceed with expectant management. Will repeat pelvic ultrasound periodically. Instructions given to patient to call in case any of the following occurs: pressure symptoms, abnormal uterine bleeding, pelvic pain; and to schedule a 12- months pelvic ultrasound and a follow-up appointment . All questions answered, the patient verbalized understanding and agreed with the plan . (2) Adnexal cyst: Code(s): N94.9 - Unspecified condition associated with female genital organs and menstrual cycle Category: Medical Plan: Discussed with the patient the finding on ultrasound showing: a anew round structure with a cystic center is seen adjacent to the right ovary measuring 1.4 x 1.2 x 1.4 cm Discussed with the patient the Ultrasound main limitation of transvaginal ultrasonography alone as a diagnostic tool to distinguish benign from malignant masses relates to its lack of specificity and low positive predictive value for cancer. The differential diagnosis discussed with the patient includes the following but not limited to: benign and malignant gynecological and non-gynecological causes. Discussed with the patient options of treatment , in case CA 125 is not elevated, including laparoscopy ovarian cystectomy/oophorectomy vs. expectant management with repeat US in repeating pelvic US in 6-12 weeks from previous US. If the ovarian complex cyst is persistent larger and / or more complex looking, will refer to gynecologic Oncology. All pros, cons, risks and benefits of each approach were discussed with the patient including but not limited to a delay in the diagnosis and treatment of ovarian cancer affecting the prognosis; The patient decided to go ahead with expectant management. Instructions given the patient to schedule a 3 months follow-up ultrasound appointment. All questions were answered & the patient verbalized understanding and agreed with the plan. (3) Vulvovaginitis: Code(s): N76.0 - Acute vaginitis Category: Medical Plan: GC and chlamydia cultures with BV panel taken. Per CDC recommendation, will screen for STI, HepBs Ag, HIV, RPR, Hep C Ab ordered. Will treat with Flagyl 500 mg p.o. b.i.d. x 7 days, Instructions given to the patient to refrain from sexual activity or to use condoms consistently and correctly during the BV treatment regimen, not to douch, it might increase the risk for relapse, and to call if symptoms persist or recur. Orders: Orders US pelvic and transvaginal 3 Months N94.9 - Unspecified condition associated with female genital organs and menstrual cycle Hepatitis B Surface Antigen Today B96.89 - Other specified bacterial agents as the cause of diseases classified elsewhere, N76.0 - Acute vaginitis Syphilis Screen Today B96.89 - Other specified bacterial agents as the cause of diseases classified elsewhere, N76.0 - Acute vaginitis HIV Ab/Ag Today B96.89 - Other specified bacterial agents as the cause of diseases classified elsewhere, N76.0 - Acute vaginitis Hepatitis C Antibody Today B96.89 - Other specified bacterial agents as the cause of diseases classified elsewhere, N76.0 - Acute vaginitis Medications: New metronidazole 500 mg PO BID 7 days 14 tabs 0RF Coding Level of Care Code Est Pt Level 3 (74473) Diagnoses Uterine myoma D25.9 Adnexal cyst N94.9 Vulvovaginitis N76.0
--- OUTSIDE RECORDS SUMMARY | 2024-08-15 19:34 | XMS_ITS | Clinical Summary ---
Author Organization [facility] Address [address] [place] [address] Care Team Providers Care Hat Cone Inspector Name Role Phone Sveta Puente [facility] Primary Care Provider [phone] Source Comments PLEASE NOTE, if this patient is a minor, it may be UNLAWFUL to discuss sensitive information that is contained in these records (such as FAMILY PLANNING, MENTAL HEALTH or SUBSTANCE ABUSE) with the minor patient's parent or other person without the patient's specific authorization.[facility] Allergies Active Allergy Reactions Criticality Noted Date Comments Codeine Other (See Comments) High 07/18/2022 Shaking Medications ibuprofen 800 mg tabletIndication s:Chronic midline low back pain with right-sided sciatica Take 1 Tablet by mouth 3 (three) times daily as needed for pain 60 Tablet 1 07/18/2022 Active Social History Tobacco Use Types Packs/Day Years Used Date Smoking Tobacco: Every Day Cigarettes Smokeless Tobacco: Never Tobacco Cessation:Ready to Q uit: Not Asked; Counseling Given: Not Answered Alcohol Use Standard Drinks/Week Comments Never 0 (1 standard drink = 0.6 oz pur e alcohol) Social Connections Answer Date Recorded Connectedness 0 07/18/2022 Financial Resource Strain Answer Date R ecorded Financial Resource Strain 0 2021 Stress Answer Date Recorded Stress 0 07/18/2022 Physical Activity Answer Date Recorded Physical Activity 0 10/14/2019 Food Insecurity Answer Date Recorded Food 0 07/18/2022 Transportation Needs Answer Date Record ed Transportation 0 07/18/2022 Housing Stability Answer Date Recorded Housing 0 07/18/2022 Safety and Environment Answer Date Patric rded Safety 0 07/18/2022 Utilities Answer Date Recorded Utilities 0 07/18/2022 Employment Answer Date Recorded Employment 0 10/14/2019 Comments No Sex and Gender Information Value Date Recorded Sex Assigned at Female 07/18/2022 12:19 PM PST Legal Sex Female 6:15 AM PST Gender Identity Female 07/18/2022 12:19 PM PST Sexual Orientation Straight 07/18/2022 12 :19 PM PST Last Filed Vital Signs Vital Sign Reading Time Taken Comments Blood Pressure 106/72 07/18/2022 2:30 PM EST Pulse 68 07/18/2022 2:30 PM EST Temperature 36.8 ??C (98.3 ??F) 07/18/2022 2:30 PM ES T Respiratory Rate 18 07/18/2022 2:30 PM EST Oxygen Saturation - - Inhaled Oxygen Concentration - - Weight 59 kg (130 lb) 07/18/2022 2:30 PM EST Height 157.5 cm (5' 2 ) 07/18/2022 2:30 PM EST Body Mass Index 23.78 07/18/2022 2:30 PM EST Plan of Treatment Health Maintenance Due Date Last Done Comments HPV Screening 1982 Hepatitis C Screening 1982 Pap + HPV 1982 Tobacco Cessation Counseling (#1) 1982 Tobacco Screening 1982 HIV Screening 1997 Annual Preventive Care Visit 2000 Imm-Hepatitis B (1 of 3 - 19 + 3-dose series) 2001 Cervical Cancer Screening 2003 Pap Smear 2003 Imm-Pneumococcal (2 of 2 - PCV) 06/16/2019 8 Breast Cancer Screening (Mammogram) 2022 Hypertension Screening (#1) 07/18/2023 Relationship Safety Screening/Counseling 07/18/2023 07/18/2022 [id number] ( season) 2024 Imm-Influenza (#1) 2024 06/16/2018, 0 04/05/2012, 04/23/2011, Additional history exists Alcohol and Drug Screen 07/20/2024 07/18/2022 Depression Annual Screen 07/20/2024 07/18/2022 Diabetes Screening 07/18/2025 07/18/2022, 07/18/2022 Lipid Screening 07/18/2027 07/18/2022 Imm-DTaP/Tdap/Td (3 - Td or Tdap) 08/01/2028 019, 01/27/2008 Cervical Ablation/Cold-Knife Conization Discontinued Cervical Cryotherapy Discontinued Colposcopy Discontinued Endometrial Biopsy Discontinued Excision/Leep Discontinued HPV Genotyping Discontinued Vaginal Pap Discontinued Vulvoscopy Discontinued Procedures Procedure Name Priority Date/Time Associated Diagnosis Comments COMPREHENSIVE METABOLIC PANEL Routine 07/18/2022 3:13 PM EST Laboratory exam ordered as part of routine general medical examination LIPIDS W RFLX TO DIRECT LDL Routine 07/18/2022 3:13 PM EST Laboratory exam ordered as part of routine general medical examination from Last 3 Months or Most Recently Relevant to Health Maintenance Results * (ABNORMAL) LIPIDS W RFLX TO DIRECT LDL (07/18/2022 3:13 PM EST) CHOLESTEROL, TOTAL 145 <200 mg/dL [email or web address] HDL CHOLESTEROL 38(L) > OR = 50 mg/dL [email or web address] TRIGLYCERIDES 110 <150 mg/dL [email or web address] LDL-CHOLESTEROL 86 99 mg/dL (calc) [email or web address] Comment: Reference range: <100 Desirable range <100 mg/dL for primary prevention; ?? <70 mg/dL for patients with CHD or diabetic patients with > or = 2 CHD risk factors. LDL-C is now calculated using the Frank-Jose Juan calculation, which is a validated novel method providing better accuracy than the Friedewald equation in the estimation of LDL-C. Frank SS et al. ADONIS. 2013;310(19): 5737-9009 (http://education.[employer]/faq/VHZ043) CHOL/HDLC RATIO 3.8 <5.0 (calc) [email or web address] NON-HDL CHOLESTEROL 107 <130 mg/dL (calc) [email or web address] Comment: For patients with diabetes plus 1 major ASCVD risk factor, treating to a non-HDL-C goal of <100 mg/dL (LDL-C of <70 mg/dL) is considered a therapeutic option. Blood Blood / Unknown 07/18/2022 3 :13 PM EST 07/18/2022 3:16 PM EST Narrative [facility] - 07/22/2022 1:25 PM EST FASTING:NO Cherri Fonseca NP LAB - BLOOD DRAW Final Result [facility] [address] [facility] [address] [place] [address], [facility] [address] [facility] [address]) [place] [address] * COMPREHENSIVE METABOLIC PANEL (07/18/2022 3:13 PM EST) GLUCOSE 76 65 - 139 mg/dL [facility] Comment: ?Non-fasting reference interval UREA NITROGEN (BUN) 14 7 - 25 mg/dL [facility] CREATININE (blood) 0.95 0.50 - 0.99 mg/dL [facility] EGFR 78 > OR = 60 mL/min/1 .73m2 [facility] Comment: The eGFR is based on the CKD-EPI 2020 equation. To calculate the new eGFR from a previous Creatinine or Cystatin C result, go to https://www.kidney.org/professionals/ kdoqi/gfr%5Fcalculator BUN/CREATININE RATIO NOT APPLICABLE 6 - 22 [facility] SODIUM 140 135 - 146 mmol/L [facility] POTASSIUM 3.6 3.5 - 5.3 mmol/L [facility] CHLORIDE 104 98 - 110 mmol/L [facility] CARBON DIOXIDE 31 20 - 32 mmol/L [facility] CALCIUM 9.3 8.6 - 10.2 mg/dL [facility] PROTEIN, TOTAL 7.2 6.1 - 8.1 g/dL [facility] ALBUMIN 4.2 3.6 - 5.1 g/dL [facility] GLOBULIN 3.0 1.9 - 3.7 g/dL (calc) [facility] ALBUMIN/GLOBUL IN RATIO 1.4 1.0 - 2.5 (calc) [facility] BILIRUBIN, TOTAL 0.3 0.2 - 1.2 mg/dL [facility] ALKALINE PHOSPHATASE 51 31 - 125 U/L [facility] AST 15 10 - 30 U/L [facility] ALT 13 6 - 29 U/L [facility] Blood Blood / Unknown 07/18/2022 3 :13 PM EST 07/18/2022 3:16 PM EST Narrative [facility] - 07/22/2022 1:25 PM EST FASTING:NO Cherri Fonseca NP LAB - BLOOD DRAW Edited Result - Final [facility] [address] [facility] [address] [place] [address], [facility] [address] [facility] [address]) [place] [address] from Last 3 Months or Most Recently Relevant to Health Maintenance Insurance GENERIC - DENTAL C[employer] [facility] [employer] Care Teams Hat Cone Inspector Relationship Specialty Start Date End Date Sveta Puente FNP [facility] [place] [address] PCP - General Internal Medicine 12/07/23
--- OUTSIDE RECORDS SUMMARY | 2024-08-15 19:34 | XMS_ITS | Clinical Summary ---
Author Organization [employer] Address [address] [facility] 7t [place] [address] Care Team Providers Care Floor Waxer Name Role Phone Unavailable Primary Care Provider Unavailabl e Allergies Active Allergy Reactions Criticality Noted Date Comments Codeine Other High 07/18/2022 Shaking Medications No known medications Active Problems Problem Noted Date Diagnosed Date Intramural uterine fibroid 06/25/2023 Overview (07/14/2023): Followed by Dr. Chun, last visit 07/02/23 Fibromyalgia 10/03/2022 Anxiety and depression 10/03/2022 Social History Tobacco Use Types Packs/Day Years Used Date Smoking Tobacco: Every Day Cigarettes Smokeless Tobacco: Never Tobacco Cessation:Ready to Q uit: Not Asked; Counseling Given: Not Answered Comments Unknown Sex and Gender Information Value Date Recorded Sex Assigned at Female 10/03/2022 2:02 PM EDT Legal Sex Female 1:58 PM EDT Gender Identity Female 10/03/2022 2:02 PM EDT Sexual Orientation Choose not to disclose 2022 2:02 PM EDT Last Filed Vital Signs Vital Sign Reading Time Taken Comments Blood Pressure 133/88 05/20/2023 5:38 PM EDT Pulse 77 05/20/2023 5:38 PM EDT Temperature 37.2 ??C (99 ??F) 05/20/2023 5:38 PM EDT Respiratory Rate 16 05/20/2023 5:38 PM EDT Oxygen Saturation 98% 05/20/2023 5:38 PM EDT Inhaled Oxygen Concentration - - Weight 59 kg (130 lb) 05/20/2023 5:38 PM EDT Height - - Body Mass Index - - Plan of Treatment Health Maintenance Due Date Last Done Comments Depression Screening 1982 SDOH Screening 1982 Pneumococcal Vaccine: Pediatrics (0 to 5 Years) and At-Risk Patients (6 to 64 Years) (1 of 2 - PCV) 1988 Alcohol/Substance Use Screening 1994 Family Planning (PISQ) 1997 DTaP/Tdap/Td Vaccines (1 - Tdap) 2001 Hepatitis B Vaccines (1 of 3 - 19+ 3-dose series) 2001 HPV/Cotest 2012 Mammogram 2022 COVID-19 Vaccine (1 - season) 2024 Influenza Vaccine (#1) 2024 Tobacco Screening 05/20/2024 05/20/2023 Cervical Cancer Screening 05/20/2026 Pap Smear 05/20/2026 05/20/2023 Zoster Vaccines (1 of 2) 2032 RSV Patients and Patients Aged 60 years or older (1 - 1-dose 75+ series) 2057 HIV Screening Completed 05/22/2023, 10/03/2022 Hepatitis C Screening Completed 05/22/2023 , 05/22/2023, 10/03/2022, Additional history exists HIB Vaccines Aged Out No longer eligi ble based on patient's age to complete this topic HPV Vaccines Aged Out No longer eligi ble based on patient's age to complete this topic Hepatitis A Vaccines Aged Out No long er eligible based on patient's age to complete this topic IPV Vaccines Aged Out No longer eligi ble based on patient's age to complete this topic Meningococcal Vaccine Aged Out No naya jaret eligible based on patient's age to complete this topic RSV under 20 months Aged Out No longe r eligible based on patient's age to complete this topic Rotavirus Vaccines Aged Out No longer eligible based on patient's age to complete this topic Procedures Procedure Name Priority Date/Time Associated Diagnosis Comments HEPATITIS C AB W/REFL TO HCV RNA, QN, PCR Routine 05/22/2023 11:35 AM EDT Routine screening for STI (sexually transmitted infection) HIV 1/2 ANTIGEN/ANTIBODY, FOURTH GENERATION W/RFL Routine 05/22/2023 11:35 AM EDT Routine screening for STI (sexually transmitted infection) PAP SMEAR Routine 05/20/2023 4:38 PM EDT Vaginal discharge from Last 3 Months or Most Recently Relevant to Health Maintenance Results * (ABNORMAL) Hepatitis C Antibody with Reflex to HCV, RNA, Quantitative, Real- Time PCR (05/22/2023 11:35 AM EDT) Hepatitis C Antibody Reactive( A) Nonreactive [facility] Comment:Presumptive evidence of antibodies to HCV. Blood Venous blood specimen / Unknown 05/22/2023 11:35 AM EDT 05/22/2023 1:09 PM EDT Brent Gleason [facility] LAB BLOOD ORDERABLES Final Res ult Performing Organization Address [facility]/ZIP Co de Phone Number [facility] [address] [place] [address] [phone] * HIV-1/2 Antigen and Antibodies, Fourth Generation, with Reflexes (05/22/2023 11:35 AM EDT) Pathologist [facility] [place] HIV AB/AG Nonreactive Nonreactive [facility] Comment:HIV-1 p24 Ag and/or HIV-1/HIV-2 Ab not detected.A test result that is nonreactive does not exclude thepossibility of exposure to or infection with HIV-1 and/orHIV-2. Nonreactive results in this assay for individualswith prior exposure to HIV-1 and/or HIV-2 may be due toantigen and antibody levels that are below the limit ofdetection of this assay.The [employer] HIV Ag/Ab Combo assay result andsupplemental assay results should be interpreted inconjunction with the patient's clinical presentation,history and other laboratory results. If the results areinconsistent with clinical evidence, additional testing issuggested to confirm the result. Blood Venous blood specimen / Unknown 05/22/2023 11:35 AM EDT 05/22/2023 1:09 PM EDT us Brent Gleason [facility] LAB BLOOD ORDERABLES Final Res ult Performing Organization Address City/[facility]/ZIP Co de Phone Number [facility] [address] [place] [address] [phone] * Pap Smear (05/20/2023 4:38 PM EDT) Swab Cervix uteri structure / Unknown 05/20/2023 4:38 PM EDT 05/21/2023 12:00 PM EDT Narrative [facility] - 06/02/2023 8:04 AM EST ----- ------- Name: Khadijah Tavarez ?Age/Sex: 43/F ? : 1980 Unit#: [id number] ?? Attend Dr: BRENT GLEASON SAWYER CORK SLABS ?Re05/20/23 ?Status: PRE REF ? Location: HO.HHCLNP ? Disch: ? ----- ------- SPEC : [id number] ?RECD: 05/21/23-1200 ? STATUS: ??SOUT ? REQ NUM: [id number] ? STEPHANIE: 05/20/231639 ? SUBM DR: BRENT GLEASON [employer]ER [employer] SLABS ? ENTERED: ??05/21/23-7040 ?SP TYPE: Pap Smr ?OTHR DR: ? ORDERED: ??Pap Smear ? Interpretation ?? Satisfactory for evaluation. ?? No endocervical cells seen. ?? Negative for intraepithelial lesion or malignancy. ?Clinical Information LMP: 05/03/2023 Previous PAP test: Unknown date/findings Other history: History of abnormal pap within 3 years ? Material Received ?? ThinPrep-Cervical ----- ------- Signed (signature on file) STANFORD Perales (ASCP) 06/02/23 0804 ? ----- ------- ? END OF REPORT ? us Brent Gleason [employer] LAB CYTOLOGY ORDERABLES Final Result Performing Organization Address City/State/[facility] Co de Phone Number [facility] [address] [place] [address] [phone] from Last 3 Months or Most Recently Relevant to Health Maintenance Insurance [facility] [employer] [place]
--- OUTSIDE RECORDS SUMMARY | 2024-08-15 19:34 | XMS_ITS | Encounter Summary ---
Author Organization [employer] Address [address] [facility] [address] [place] [address] Care Team Providers Care Applied Exercise Physiologist Name Role Phone Unavailable Primary Care Provider Unavailabl e Reason for Visit * Reason Comments Med Refill Encounter Details Date Type Department Care Team (Late st Contact Info) Description 11/26/2023 Refill [facility] [address] [place] [address] Micaela Gleason FNP Vaginal discharge Social History Tobacco Use Types Packs/Day Years Used Date Smoking Tobacco: Every Day Cigarettes Smokeless Tobacco: Never Comments Unknown Sex and Gender Information Value Date Recorded Sex Assigned at Female 10/03/2022 2:02 PM EDT Legal Sex Female 1:58 PM EDT Gender Identity Female 10/03/2022 2:02 PM EDT Sexual Orientation Choose not to disclose 2022 2:02 PM EDT documented as of this encounter Plan of Treatment Not on file documented as of this encounter Visit Diagnoses Diagnosis Vaginal discharge Leukorrhea, not specified as infective documented in this encounter
--- OUTSIDE RECORDS SUMMARY | 2024-08-15 19:34 | XMS_ITS | Clinical Summary ---
Author Organization [facility] it Address [address] [place] [address] Care Team Providers Care Notary Public Name Role Phone Rom North MD Primary Care Provider [phone] Allergies Active Allergy Reactions Criticality Noted Date Comments Codeine Other Medium 05/04/2010 made me sick all over Doxycycline Hyclate Nausea And Vomiting 013 Medications Medication Sig Dispensed Refills Start Date End Date Status nabumetone (RELAFEN) 500 mg tablet Take 1 Tab by mouth 2 times daily. 07/11/2013 Active naproxen (NAPROSYN) 500 mg tablet Take 1 Tab by mouth 2 times daily (with meals). 10/11/2012 Active oxyCODONE-acetaminophe n (PERCOCET) 10-325 mg per tablet Take 1 tablet by mouth 3 times daily. 07/11/2013 Active Active Problems Problem Noted Date Diagnosed Date Rotator cuff disorder 11/26/2012 Lumbar disc disease 07/15/2012 Back pain 03/29/2009 Anxiety 11/01/2007 Mild dysplasia of cervix 10/18/2007 Hip pain 09/03/2007 Sacroiliac pain 09/03/2007 Immunizations Name Administration Dates Next Due HPV, Quadrivalent 09/09/2007,04/23/2007,02/16/20 07 Influenza trivalent, with preservative (Fluzone; Afluria) 6mo and older 04/05/2012,04/23/2011,05/04/2010,2006 PPD Test 09/18/2009 Tdap Tetanus diptheria acell ular pertussis (Boostrix; Adacel) 7yo and older 01/27/2008 Surgical History Surgery Date Site/Laterality Comments TUBAL LIGATION 08/11/03 PROCEDURE: HISTORICAL TUBAL LIGATION; COMMENT: Bilateral tubal fulguration, [facility] Medical History Medical History Date Comments Back pain DX:Back pain Other specified personal his tory presenting hazards to health(V15.89) DX:Other specifie d personal history presenting hazards to health(V15.89); COMMENT: LEEP 11/2007 Family History Medical History Relation Name Comments Hypertension Father Breast cancer Father's side 2 aunts, unkn own age of onset Diabetes Maternal Grandmother Hypertension Maternal Grandmother Other cancer Paternal Grandfather BLOOD Blindness Neg Hx Cataracts Neg Hx Glaucoma Neg Hx Macular degeneration Neg Hx Ovarian cancer Neg Hx Strabismus Neg Hx Uterine cancer Neg Hx Relation Name Status Comments Brother 1 Alive Brother 2 Alive Father Alive Father's side Maternal Grandmother Mother Alive Paternal Grandfather Sister 1 Alive Sister 2 Alive Sister 3 Alive Social History Tobacco Use Types Packs/Day Years Used Date Smoking Tobacco: Former Cigarettes Q uit: 03/20/2011 Smokeless Tobacco: Never Alcohol Use Standard Drinks/Week Comments No 0 (1 standard drink = 0.6 oz pur e alcohol) Sex and Gender Information Value Date Recorded Sex Assigned at Not on file Gender Identity Not on file Sexual Orientation Not on file Obstetrics History Plan of Treatment Health Maintenance Due Date Last Done Comments Breast Cancer Screening 1982 Hepatitis B Vaccines (1 of 3 - 19+ 3-dose series) 2001 Cervical Cancer Screening: Pap Smear 11/24/2015 11/23/2012, 11/23/2012 DTaP,Tdap,and Td Vaccines (2 - Td or Tdap) 01/26/2018 01/27/2008 Depression Screening 06/18/2022 Social Influencers of Health Screening 06/18/2022 COVID-19 Vaccine ( season) 2024 Influenza Vaccine (#1) 2024 2, 04/23/2011, 05/04/2010, Additional history exists HPV Vaccines Completed 09/09/2007, 11/2006, 02/15/2007 HIV Screening Completed 06/13/2009 Hepatitis C Screening Completed 06/13/2009 HIB Vaccines Aged Out No longer eligi ble based on patient's age to complete this topic Hepatitis A Vaccines Aged Out No long er eligible based on patient's age to complete this topic IPV Vaccines Aged Out No longer eligi ble based on patient's age to complete this topic MMR Vaccines Aged Out No longer eligi ble based on patient's age to complete this topic Meningococcal ACWY Vaccine Aged Out N o longer eligible based on patient's age to complete this topic Pneumococcal Vaccine: Pediatrics (0 to 5 Years) and At-Risk Patients (6 to 64 Years) Aged Out No longer eligible based on patient's age to complete this topic RSV Immunization Patients Under 20 months Aged Out No longer eligible based on patient's age to complete this topic Varicella Vaccines Aged Out No longer eligible based on patient's age to complete this topic Procedures Procedure Name Priority Date/Time Associated Diagnosis Comments HPV Routine 11/23/2012 HEPATITIS C SCREENING Routine 06/13/2009 HIV SCREENING Routine 06/13/2009 from Last 3 Months or Most Recently Relevant to Health Maintenance Results * Cervical Cancer Screening: HPV (11/23/2012) Pathologist [facility] Cervical Cancer Screening: HPV Negative, Abstracted Historical Provider MD PICHARDO MAINJARAD E * HIV Screening (06/13/2009) Pathologist [facility] HIV Screening Abstracted Historical Provider MD PICHARDO MAINJARAD E * Hepatitis C Screening (06/13/2009) Pathologist [facility] Hepatitis C Screening Abstracted Historical Provider MD MARINO RUBIO E from Last 3 Months or Most Recently Relevant to Health Maintenance Care Teams Notary Public Relationship Specialty Start Date End Date Rom North MD PCP - General 09/11/05
--- OUTSIDE RECORDS SUMMARY | 2024-08-15 19:34 | XMS_ITS | Encounter Summary ---
Author Organization [employer] Address [address] [facility] 7t [place] [address] Care Team Providers Care Outboard Motorboat Rigger Name Role Phone Unavailable Primary Care Provider Unavailabl e Reason for Visit * Reason Onset Date Comments Results 05/27/2023 Encounter Details Date Type Department Care Team (Late st Contact Info) Description 05/27/2023 Telephone [facility] [address] [place], [place] [phone] Wesly Chaudhari MD [address] [place], [place] [phone] Results Social History Tobacco Use Types Packs/Day Years Used Date Smoking Tobacco: Every Day Cigarettes Smokeless Tobacco: Never Comments Unknown Sex and Gender Information Value Date Recorded Sex Assigned at Female 10/03/2022 2:02 PM EDT Legal Sex Female 1:58 PM EDT Gender Identity Female 10/03/2022 2:02 PM EDT Sexual Orientation Choose not to disclose 2022 2:02 PM EDT documented as of this encounter Miscellaneous Notes * Telephone Encounter - Cleveland Carr - 05/27/2023 1:26 PM EST Tc from pt requesting lab results. Please contact at [phone] documented in this encounter Plan of Treatment Not on file documented as of this encounter Visit Diagnoses Not on filedocumented in this encounter
== END 2024-08-15 16:14 | disposition home or self-care (01) ==
LOC: HO.HWS 15:34
PROVIDERS: Visit Provider Obstetrics & Gynecology
DX: D25.9 Leiomyoma of uterus, unspecified (principal); N94.9 Unspecified condition associated with female genital organs and menstrual cycle; N76.0 Acute vaginitis
CPT/HCPCS: 99213

== ENCOUNTER 2024-08-15 15:34 | Outpatient (REF) | payer OTHER, SELFPAY ==
[2024-08-16 16:52] LABS: Bacterial Vaginosis PCR POSITIVE (Negative); Candida Group PCR NOT DETECTED (Not Detect); Candida glab krusei PCR NOT DETECTED (Not Detect); Trichomonas vaginalis PCR NOT DETECTED (Not Detect)
[2024-08-16 17:25] LABS: CT PCR NOT DETECTED (Not Detect.); NG PCR NOT DETECTED (Not Detect.)
== END 2024-08-15 15:35 | disposition home or self-care (01) ==
LOC: HO.LNP 15:34
PROVIDERS: Visit Provider Obstetrics & Gynecology
DX: N76.0 Acute vaginitis (principal); B96.89 Other specified bacterial agents as the cause of diseases classified elsewhere; D25.9 Leiomyoma of uterus, unspecified; N94.9 Unspecified condition associated with female genital organs and menstrual cycle
CPT/HCPCS: 81515; 87491; 87591; 99212

== ENCOUNTER → 2024-09-15 11:00 | Outpatient (BNV) | payer OTHER, SELFPAY | PROVIDERS: Visit Provider Internal Medicine | DX: Z12.31 Encounter for screening mammogram for malignant neoplasm of breast (principal) | CPT/HCPCS: 77063; 77067 ==

== ENCOUNTER 2024-09-15 11:03 | Outpatient (REF) | payer OTHER, SELFPAY ==
--- OUTSIDE RECORDS SUMMARY | 2024-09-15 13:19 | XMS_ITS | Clinical Summary ---
Author Organization [employer] Address [address] [facility] [address] [place] [address] Care Team Providers Care Campus Security Officer Name Role Phone Unavailable Primary Care Provider [...] Comments Depression Screening 1982 SDOH Screening 1982 Alcohol/Substance Use Screening 1994 Family Planning (PISQ) 1997 DTaP/Tdap/Td Vaccines (1 - Tdap) 2001 Hepatitis B Vaccines (1 of 3 - 19+ 3-dose series) 2001 Pneumococcal Vaccine: Pediatrics (0 to 5 Years) and At-Risk Patients (6 to 49) Years) (1 of 2 - PCV) 2001 HPV/Cotest 2012 Mammogram 2022 COVID-19 Vaccine [...] EDT) Hepatitis C Antibody Reactive( A) Nonreactive [facility] Comment:Presumptive evidence of antibodies to HCV. Blood Venous blood specimen / Unknown 05/22/2023 11:35 AM EDT 05/22/2023 1:09 PM EDT Brent Gleason [facility] LAB BLOOD ORDERABLES Final Res ult Performing Organization Address [facility]/ZIP Co de Phone Number [facility] [address] [place] [phone] * HIV-1/2 Antigen and Antibodies, Fourth Generation, with Reflexes (05/22/2023 11:35 AM EDT) HIV AB/AG Nonreactive Nonreactive [facility] Comment:HIV-1 p24 Ag and/or HIV-1/HIV-2 Ab not detected.A test result that is nonreactive does not exclude thepossibility of exposure to or infection with HIV-1 and/orHIV-2. Nonreactive results in this assay for individualswith prior exposure to HIV-1 and/or HIV-2 may be due toantigen and antibody levels that are below the limit ofdetection of this assay.The [employer] HIV Ag/Ab Combo assay result andsupplemental assay results should be interpreted inconjunction with the patient's clinical presentation,history and other laboratory results. If the results areinconsistent with clinical evidence, additional testing issuggested to confirm the result. Blood Venous blood specimen / Unknown 05/22/2023 11:35 AM EDT 05/22/2023 1:09 PM EDT us Brent Gleason [facility] BLOOD ORDERABLES Final Res ult Performing Organization Address City/[facility]/ZIP Co de Phone Number [facility] [address] [place] [address] [phone] * Pap Smear (05/20/2023 4:38 PM EDT) Swab Cervix uteri structure / Unknown 05/20/2023 4:38 PM EDT 05/21/2023 12:00 PM EDT Narrative [facility] - 06/02/2023 8:04 AM EST ----- ------- Name: Khadijah Tavarez ?Age/Sex: 43/F ? : 1980 Unit#: [id number] ?? Attend Dr: BRENT GLEASON BANK CREDIT CARD COLLECTION CLERK ?Re05/20/23 ?Status: PRE REF ? Location: HO.HHCLNP ? Disch: ? ----- ------- SPEC : [id number] ?RECD: 05/21/23-1200 ? STATUS: ??SOUT ? REQ NUM: [id number] ? STEPHANIE: 05/20/232140 ? SUBM DR: BRENT GLEASON BANK CREDIT CARD COLLECTION CLERK ? ENTERED: ??05/21/23-7780 ?SP TYPE: Pap Smr ?OTHR : ? ORDERED: ??Pap Smear ? Interpretation ?? [...] ? END OF REPORT ? us Brent Filibertosita MOTORCYCLE MAKER LAB CYTOLOGY ORDERABLES Final Result Performing Organization Address City/State/[facility] [email or web address]] Co de Phone Number [facility] [address] [place] [address] [phone] from Last 3 Months or Most Recently Relevant to Health Maintenance Insurance [facility] [email or web address]
--- OUTSIDE RECORDS SUMMARY | 2024-09-15 13:19 | XMS_ITS | Clinical Summary ---
Author Organization [facility] Address [address] [place] [address] Care Team Providers Care Application Operations Engineer Name Role Phone Sveta Puente [facility] Primary Care Provider [phone] Source Comments PLEASE NOTE, if this patient [...] 07/18/2022 2:30 PM EST Plan of Treatment Upcoming Encounters Date Type Department Care Team (Late st Contact Info) Description 09/28/2024 2:20 PM EDT [facility] Visit [facility] [address] [place] [phone] Linda Cano, COMMUNICATIONS SUPERVISOR [address] [place] [address] Health Maintenance Due Date Last Done Comments HPV Screening 1982 Hepatitis C Screening 1982 Pap + HPV 1982 Tobacco Cessation Counseling (#1) 1982 Tobacco Screening 1982 HIV Screening 1997 Imm-Hepatitis B (1 of 3 - 19 + 3-dose series) 2001 Cervical Cancer Screening 2003 Pap Smear 2003 Imm-Pneumococcal (2 of 2 - PCV) 06/16/2019 Breast Cancer Screening (Mammogram) 2022 Hypertension Screening (#1) 07/18/2023 Relationship Safety Screening/Counseling 07/18/2023 07/18/2022 [id number] ( - season) 2024 Imm-Influenza (#1) 2024 Alcohol and Drug Screen 07/20/2024 07/18/2022 Depression Annual Screen 07/20/2024 07/18/2022 Diabetes Screening 07/18/2025 07/18/2022, 07/18/2022 Lipid Screening 07/18/2027 07/18/2022 Imm-DTaP/Tdap/Td (3 - Td or Tdap) 08/01/2028 Cervical Ablation/Cold-Knife Conization Discontinued Cervical Cryotherapy Discontinued Colposcopy Discontinued Endometrial Biopsy Discontinued Excision/Leep Discontinued HPV Genotyping Discontinued Vaginal Pap Discontinued Vulvoscopy Discontinued Procedures Procedure Name Priority Date/Time Associated Diagnosis Comments HEMOGLOBIN GLYCOSYLATED A1C Routine 07/18/2022 3:13 PM EST Laboratory exam [...] PM EST) CHOLESTEROL, TOTAL 145 <200 mg/dL [facility]UCT [facility] HDL CHOLESTEROL 38(L) > OR = 50 mg/dL [facility] TRIGLYCERIDES 110 <150 mg/dL [facility] LDL-CHOLESTEROL 86 99 mg/dL (calc) [facility] Comment: Reference range: <100 Desirable range <100 mg/dL for primary prevention; ?? <70 mg/dL for patients with CHD or diabetic patients with > or = 2 CHD risk factors. LDL-C is now calculated using the Frank-Jose Juan calculation, which is a validated novel method providing better accuracy than the Friedewald equation in the estimation of LDL-C. Frank GRANADOS et al. ADONIS. 2013;310(19): 1396-3211 (http://education.[employer].SIMTEK/faq/TGB951) CHOL/HDLC RATIO 3.8 <5.0 (calc) [facility] NON-HDL CHOLESTEROL 107 <130 mg/dL (calc) [facility] Comment: For patients with diabetes plus 1 major ASCVD risk factor, treating to a non-HDL-C goal of <100 mg/dL (LDL-C of <70 mg/dL) is considered a therapeutic option. Blood Blood / Unknown 07/18/2022 3 :13 PM EST 07/18/2022 3:16 PM EST Narrative [facility] - 07/22/2022 1:25 PM EST FASTING:NO us Cherri Fonseca NP LAB - BLOOD DRAW Final Result Performing Organization Address [facility] de Phone Number [facility] [address] [phone], [employer] [address] [place] [address] (2) [place] [address] * HEMOGLOBIN, GLYCOSYLATED (A1C) (07/18/2022 3:13 PM EST) HEMOGLOBIN A1C 4.9 <5.7 % of total Hgb [facility] Comment: For the purpose of screening for the presence of diabetes: <5.7% ? Consistent with the absence of diabetes 5.7-6.4% ?Consistent with increased risk for diabetes ?(prediabetes) > or =6.5% ??Consistent with diabetes This assay result is consistent with a decreased risk of diabetes. Currently, no consensus exists regarding use of hemoglobin A1c for diagnosis of diabetes in children. According to [place] Diabetes Association (ADA) guidelines, hemoglobin A1c <7.0% represents optimal control in non- diabetic patients. Different metrics may apply to specific patient populations. Standards of Medical Care in Diabetes(ADA). ?? Blood Blood / Unknown 07/18/2022 3 :13 PM EST 07/18/2022 3:16 PM EST Narrative [facility] - 07/22/2022 1:25 PM EST FASTING:NO us Cherri Fonseca NP LAB - BLOOD DRAW Edited Result - Final Performing Organization Address [facility]/ZIP Co de Phone Number [facility] [address] [address], [employer] [address] [place] [address] (NL2) [place] [address] from Last 3 Months or Most Recently Relevant to Health Maintenance Insurance GENERIC - DENTAL [employer] [facility] Member Subscriber Plan / Payer (Ef fective 2024-Present) Name:Khadijah Tavarez Relation to Subscriber:Self Name:Khadijah Tavarez Payer ID:[id number] Type:Indemnity Address: [address] [address] [facility] [employer] Care Teams Application Operations Engineer Relationship Specialty Start Date End Date Sveta Puente FNP [address] [place] [id number] PCP - General Internal Medicine 12/07/23
--- OUTSIDE RECORDS SUMMARY | 2024-09-15 13:20 | XMS_ITS | Encounter Summary ---
Author Organization [employer] Address [address] [facility] [address]t [place] [address] Care Team Providers Care Watch Dial Printer Name Role Phone Unavailable Primary Care Provider Unavailabl e Reason for Visit * Reason Comments Med Refill Encounter Details Date Type Department Care Team (Late st Contact Info) Description 11/26/2023 Refill [facility] [address] [place] [address] Micaela Gleason FNP Vaginal discharge [...]
--- OUTSIDE RECORDS SUMMARY | 2024-09-15 13:20 | XMS_ITS | Clinical Summary ---
Author Organization Nicolette [facility] it Address [address] [place] [address] Care Team Providers Care Manufacturing Shift Supervisor Name Role Phone Rom North MD Primary Care Provider [phone] Allergies Active Allergy Reactions Criticality Noted Date Comments Codeine Other Medium 05/04/2010 made me sick all over Doxycycline Hyclate Nausea And Vomiting 013 Medications nabumetone (RELAFEN) 500 mg tablet Take 1 Tab by mouth 2 times daily. 07/11/2013 Active naproxen (NAPROSYN) 500 mg tablet Take 1 Tab by mouth 2 times daily (with meals). 10/11/2012 Active oxyCODONE-acetam inophen (PERCOCET) 10-325 mg per tablet Take 1 [...] TUBAL LIGATION; COMMENT: Bilateral tubal fulguration, [facility], [facility] Medical History Medical History Date Comments [...] drink = 0.6 oz pur e alcohol) Comments Unknown Sex and Gender Information Value Date Recorded Sex Assigned at Not on file Legal Sex Female 4:16 PM EST Gender Identity Not on file Sexual Orientation [...] Influencers of Health Screening 06/18/2022 COVID-19 Vaccine (2023- season) 2024 Influenza Vaccine (#1) 2024 2, [...] patient's age to complete this topic Meningococcal B Vacine Aged Out No lo nger eligible based on patient's age to complete [...] * Cervical Cancer Screening: HPV (11/23/2012) Pathologist [facility] Cervical Cancer Screening: HPV Negative, Abstracted [facility] Provider HEALTH MAINTENANCE Final Result * HIV Screening (06/13/2009) [facility] HIV Screening Abstracted [facility] Provider HEALTH MAINTENANCE Final Result * Hepatitis C Screening (06/13/2009) Pathologist [facility] Hepatitis C Screening Abstracted Historical Provider HEALTH MAINTENANCE Final Result from Last 3 Months or Most Recently Relevant to Health Maintenance Care Teams Manufacturing Shift Supervisor Relationship Specialty Start Date End Date Rom North MD PCP - General 09/11/05
== END 2024-09-15 11:04 | disposition home or self-care (01) ==
LOC: HO.MAMMO 11:03
PROVIDERS: Visit Provider Obstetrics & Gynecology
DX: Z12.31 Encounter for screening mammogram for malignant neoplasm of breast (principal)
CPT/HCPCS: 77063; 77067

== ENCOUNTER 2024-11-14 12:59 | Outpatient (REF) | payer OTHER, SELFPAY ==
--- NOTE | ~2024-11-14 | US_ITS ---
EXAMINATION: US PELVIS TRANSABDOMINAL AND TRANSVAGINAL HISTORY: N94.9 - ADNEXAL CYST COMPARISON: Comparison is made with the prior examination dated 05/25/2024. TECHNIQUE: Transabdominal and endovaginal real-time 2D goodman-scale ultrasound was performed. FINDINGS: Uterus: The uterus is normal in size, measuring 9.6 x 4.8 x 5.7 cm. Myometrium has a normal echotexture. Again seen are multiple fibroids including a posterior fibroid measuring 1.6 x 1.6 x 1.7 cm (previously 1.6 x 1.1 x 1.4 cm), and anterior fibroid measuring 2.5 x 1.1 x 2.0 cm (previously 1.6 x 1.3 x 1.8 cm) disease, and a left-sided fibroid measuring 1.2 x 1.3 x 1.3 cm (previously 1.8 x 2.0 x 0.9 cm) Endometrium: The endometrial stripe measures 9 mm in thickness. There are nabothian cysts in the cervix. Right ovary: The right ovary measures 3.4 x 1.8 x 1.9 cm. The previously seen rounded structure with cystic center is slightly smaller in size measuring 11 x 9 x 10 mm (previously 14 x 12 x 14 mm). Left ovary: The left ovary measures 2.9 x 0.8 x 1.8 cm. The left ovary is normal in size and echotexture. Pelvic fluid: none. US/US pelvic and transvaginal IMPRESSION: 1. Fibroid uterus as described. 2. Slight decrease in size of the previously seen rounded structure with a cystic center in the right ovary. Continued follow-up is recommended to document complete resolution. Electronically signed by: Marshall Colon MD 11/16/2024 11:49 AM EDT
--- OUTSIDE RECORDS SUMMARY | 2024-11-14 15:34 | XMS_ITS | Clinical Summary ---
Author Organization [employer] Address [address] [place] [address] Care Team Providers Care Fitness Worker Name Role Phone Unavailable Primary Care Provider [...] EDT) Hepatitis C Antibody Reactive( A) Nonreactive [facility] Comment:Presumptive evidence of antibodies to HCV. Blood Venous blood specimen / Unknown 05/22/2023 11:35 AM EDT 05/22/2023 1:09 PM [address] Brent Gleason [facility] BLOOD ORDERABLES Final Res ult Performing Organization Address [facility]/ZIP Co de Phone Number [facility] [address] [place] [phone] * HIV-1/2 Antigen and Antibodies, Fourth Generation, with Reflexes (05/22/2023 11:35 AM EDT) HIV AB/AG Nonreactive Nonreactive [facility] Comment:HIV-1 p24 Ag and/or HIV-1/HIV-2 Ab not detected.A test result that is nonreactive does not exclude thepossibility of exposure to or infection with HIV-1 and/orHIV-2. Nonreactive results in this assay for individualswith prior exposure to HIV-1 and/or HIV-2 may be due toantigen and antibody levels that are below the limit ofdetection of this assay.The quickhuddleniBlueArc HIV Ag/Ab Combo assay result andsupplemental assay results should be interpreted inconjunction with the patient's clinical presentation,history and other laboratory results. If the results areinconsistent with clinical evidence, additional testing issuggested to confirm the result. Blood Venous blood specimen / Unknown 05/22/2023 11:35 AM EDT 05/22/2023 1:09 PM EDT us Brent Gleason [facility] BLOOD ORDERABLES Final Res ult Performing Organization Address City/[facility]/ZIP Co de Phone Number [facility] [address] [place] [address] [phone] * Pap Smear (05/20/2023 4:38 PM EDT) Swab Cervix uteri structure / Unknown 05/20/2023 4:38 PM EDT 05/21/2023 12:00 PM EDT Narrative [facility] - 06/02/2023 8:04 AM EST ----- ------- Name: Khadijah Tavarez ?Age/Sex: 43/F ? : 1980 Unit#: [id number] ?? Attend Dr: BRENT GLEASON VEHICLE DAMAGE APPRAISER ?Re05/20/23 ?Status: PRE REF ? Location: HO.HHCLNP ? Disch: ? ----- ------- SPEC : [id number] ?RECD: 05/21/23-1200 ? STATUS: ??SOUT ? REQ NUM: [id number] ? STEPHANIE: 05/20/239429 ? SUBM DR: BRENT GLEASON VEHICLE DAMAGE APPRAISER ? ENTERED: ??05/21/23-7790 ?SP TYPE: Pap Smr ?OTHR : ? [...] END OF REPORT ? us Brent Filibertosita [facility] TECHNICIAN LAB CYTOLOGY ORDERABLES Final Result Performing Organization Address City/State/[facility] Co de Phone Number [facility] [address] [place] [address] [phone] from Last 3 Months or Most Recently Relevant to Health Maintenance Insurance [facility]
--- OUTSIDE RECORDS SUMMARY | 2024-11-14 15:34 | XMS_ITS | Clinical Summary ---
Author Organization Nicolette [facility] it Address [address] [place] [address] Care Team Providers Care Shaper Machine Hand Name Role Phone Rom North MD Primary Care Provider [phone] Allergies Active Allergy Reactions Criticality Noted Date [...] TUBAL LIGATION; COMMENT: Bilateral tubal fulguration, [facility], [facility] Medical History Medical History Date Comments [...] (2 - Td or Tdap) 01/26/2018 01/27/2008 Cholesterol Screening (Lipid Panel) 06/18/2022 04/23/2011 Social Influencers of Health Screening 06/18/2022 COVID-19 Vaccine ( season) 2024 Influenza Vaccine (Season Ended) 2025 04/05/2012, 04/23/2011, 05/04/2010, Additional history exists Depression Screening 09/28/2025 09/28/2024 HPV Vaccines Completed 09/09/2007, 11/2006, 02/15/2007 HIV [...] age to complete this topic Meningococcal B Vaccine Aged Out No l onger eligible based on patient's age to complete [...] Date/Time Associated Diagnosis Comments HPV Routine 11/23/2012 LIPID PANEL Routine 04/23/2011 HEPATITIS C SCREENING Routine 06/13/2009 HIV SCREENING Routine 06/13/2009 from Last 3 Months or Most Recently Relevant to Health Maintenance Results * Cervical Cancer Screening: HPV (11/23/2012) [facility] Cervical Cancer Screening: HPV Negative, Abstracted [facility] Provider HEALTH MAINTENANCE Final Result * (ABNORMAL) Lipid panel (04/23/2011) [facility] LDL/HDL Ratio 3 0 - 4 Triglycerides 75 0 - 150 mg/dL Cholesterol 126 0 - 200 mg/dL HDL 37(A) >=40 mg/dL LDL Cholesterol 74 0 - 100 mg/dL Blood Venous blood specimen / Unknown Historical Provider LAB BLOOD ORDERABLES Consuelo l Result * HIV Screening (06/13/2009) [facility] HIV Screening Abstracted [facility] Provider HEALTH MAINTENANCE Final Result * Hepatitis C Screening (06/13/2009) Hepatitis C Screening Abstracted us Historical Provider HEALTH MAINTENANCE Final Result from Last 3 Months or Most Recently Relevant to Health Maintenance Care Teams Shaper Machine Hand Relationship Specialty Start Date End Date Rom North MD PCP - General 09/11/05
--- OUTSIDE RECORDS SUMMARY | 2024-11-14 15:34 | XMS_ITS | Clinical Summary ---
Author Organization [facility] Address [address] [place] [address] Care Team Providers Care Rn Infusion Name Role Phone Sveta Puente KAREN Primary Care Provider [phone] Source Comments PLEASE NOTE, if this patient [...] for pain 60 Tablet 1 07/18/2022 Active Encounters Date Type Department Care Team Description 09/28/2024 2:20 PM EDT Office Visit [address] [phone] Linda Cano FNP Establishing care with new doctor, encounter for (Primary Dx); Screen for sexually transmitted diseases; Vitamin D deficiency; Prediabetes; Headaches from Last 3 Months Social History Tobacco Use Types Packs/Day Years Used Date Smoking Tobacco: Every Day Cigarettes Smokeless Tobacco: Never Alcohol Use Standard Drinks/Week Comments Never 0 [...] and Environment Answer Date Patric rded Safety 1 09/28/2024 Utilities Answer Date Recorded Utilities 0 07/18/2022 [...] Sign Reading Time Taken Comments Blood Pressure 132/80 09/28/2024 2:09 PM EDT Pulse 85 09/28/2024 2:09 PM EDT Temperature 36.7 ??C (98.1 ??F) 09/28/2024 2:09 PM ED T Respiratory Rate 16 09/28/2024 2:09 PM EDT Oxygen Saturation 98% 09/28/2024 2:09 PM EDT Inhaled Oxygen Concentration - - Weight 60.8 kg (134 lb) 09/28/2024 2:09 PM EDT Height 157.5 cm (5' 2 ) 09/28/2024 2:09 PM EDT Body Mass Index 24.51 09/28/2024 2:09 PM EDT Plan of Treatment Health Maintenance Due Date Last Done Comments Anxiety Screening 1980 HPV Screening 1980 Pap + HPV 1980 Imm-Hepatitis B (1 of 3 - 19 + 3-dose series) 2001 Imm-Pneumococcal (1 of 2 - PCV) 2001 Cervical Cancer Screening 2003 Pap Smear 2003 Imm-DTaP/Tdap/Td (2 - Td or Tdap) 01/26/2018 008 Breast Cancer Screening (Mammogram) 2022 Hbo-[id number]-49 ( season) 2024 Imm-Influenza (#1) 2024 04/05/2012, 1 , 05/04/2010, Additional history exists Depression Monitoring 12/29/2024 09/28/2024, 022 Diabetes Screening 09/28/2025 09/28/2024, 0 09/28/2024, 10/03/2022, Additional history exists Hypertension Screening (#1) 09/28/2025 Relationship Safety Screening/Counseling 09/28/2025 09/28/2024, 07/18/2022 Tobacco Cessation Counseling (#1) 09/28/2025 025 Lipid Screening 09/28/2029 09/28/2024, 07/18/2022 Hepatitis C Screening Completed 05/22/2023 Alcohol and Drug Screen Completed 09/28/2024, 07/18 HIV Screening Completed 09/28/2024, 09/2022, 05/22/2023, Additional history exists Cervical Ablation/Cold-Knife Conization Discontinued Cervical Cryotherapy Discontinued Colposcopy Discontinued Endometrial Biopsy Discontinued Excision/Leep Discontinued HPV Genotyping Discontinued Vaginal Pap Discontinued Vulvoscopy Discontinued Procedures Procedure Name Priority Date/Time Associated Diagnosis Comments C TRACHOMATIS/N GONORRHOEAE RNA,TMA Routine 09/28/2024 2:47 PM EDT Screen for sexually transmitted diseases HIV 1/2 AG & AB W/RFLX (4TH GEN) Routine 09/28/2024 2:47 PM EDT Screen for sexually transmitted diseases COMPREHENSIVE METABOLIC PANEL Routine 09/28/2024 2:47 PM EDT Prediabetes BLOOD COUNT COMPLETE AUTO&AUTO DIFRNTL WBC Routine 09/28/2024 2:47 PM EDT Prediabetes LIPIDS W RFLX TO DIRECT LDL Routine 09/28/2024 2:47 PM EDT Prediabetes HGA1C W/EAG Routine 09/28/2024 2:47 PM EDT Prediabetes VITAMIN D, 1,25-DIHYDROXY Routine 09/28/2024 2:47 PM EDT Vitamin D deficiency VITAMIN B12 & FOLATE Routine 09/28/2024 2:47 PM EDT Vitamin D deficiency Headaches from Last 3 Months Results * HIV 1/2 AG & AB W/RFLX (4TH GEN) (09/28/2024 2:47 PM EDT) HIV AG/AB, 4TH GEN NON-REAC TIVE NON-REAC TIVE [email or web address] Comment: HIV-1 antigen and HIV-1/HIV-2 antibodies were not detected. There is no laboratory evidence of HIV infection. PLEASE NOTE: This information has been disclosed to you from records whose confidentiality may be protected by state law. ??If your state requires such protection, then the state law prohibits you from making any further disclosure of the information without the specific written consent of the person to whom it pertains, or as otherwise permitted by law. A general authorization for the release of medical or other information is NOT sufficient for this purpose. ?? For additional information please refer to http://education.S[employer]/faq/CGO877 (This link is being provided for informational/ educational purposes only.) The performance of this assay has not been clinically validated in patients less than 2 years old. Blood Blood / Unknown 09/28/2024 2 :47 PM EDT 09/28/2024 2:51 PM EDT Narrative [facility] - 10/02/2024 5:10 PM EDT FASTING:NO Linda Sartenisha [facility] - BLOOD DRAW Final Result [facility] [address] [place] [phone], [email or web address] [address] [place] [phone] * HGA1C W/EAG (09/28/2024 2:47 PM EDT) Pathologist [facility] HEMOGLOBIN A1C 5.2 <5.7 % of total Hgb [email or web address] Comment: For the purpose of screening for the presence of diabetes: <5.7% ? Consistent with the absence of diabetes 5.7-6.4% ?Consistent with increased risk for diabetes ?(prediabetes) > or =6.5% ??Consistent with diabetes This assay result is consistent with a decreased risk of diabetes. Currently, no consensus exists regarding use of hemoglobin A1c for diagnosis of diabetes in children. According to [place] Diabetes Association (ADA) guidelines, hemoglobin A1c <7.0% represents optimal control in non- diabetic patients. Different metrics may apply to specific patient populations. Standards of Medical Care in Diabetes(ADA). ?? EAG (MG/DL) 103 mg/dL [facility] EAG (MMOL/L) 5.7 mmol/L [facility] Blood Blood / Unknown 09/28/2024 2 :47 PM EDT 09/28/2024 2:51 PM EDT Narrative [facility] - 10/02/2024 5:10 PM EDT FASTING:NO Linda [facility]ON[facility] LAB - BLOOD DRAW Edited Resul t - Final [facility] [address] [address], [facility] [address] [address] * C TRACHOMATIS/N GONORRHOEAE RNA,TMA (09/28/2024 2:47 PM EDT) CHLAMYDIA TRACHOMATIS RNA, TMA NOT DETECTED NOT DETECTED [facility] NEISSERIA GONORRHOEAE RNA, TMA NOT DETECTED NOT DETECTED [facility] COMMENT [facility] Urine Urine specimen / Unknown 09/28/2024 2:47 PM EDT 09/28/2024 2:51 PM EDT Narrative [facility] - 10/02/2024 5:10 PM EDT FASTING:NO The analytical performance characteristics of this assay, when used to test SurePath(TM) specimens have been determined by [employer]. The modifications have not been cleared or approved by the FDA. This assay has been validated pursuant to the CLIA regulations and is used for clinical purposes. For additional information, please refer to https://education.FookyZ.Trunity/faq/JGP562 (This link is being provided for information/ educational purposes only.) Linda JONES LAB - NO BLOOD DRAW Edited Re sult - Final Performing Organization Address [facility] Co de Phone Number [facility] [address] [address], [facility] [address] [place] [address] * VITAMIN D, 1,25-DIHYDROXY (09/28/2024 2:47 PM EDT) Pathologist [facility] VITAMIN D, 1, 25 (OH)2, TOTAL 39 18 - 72 pg/mL [facility] VITAMIN D3, 1, 25 (OH)2 39 pg/mL [facility] VITAMIN D2, 1, 25 (OH)2 <8 pg/mL [facility] Comment: Vitamin D3, 1,25(OH)2 indicates both endogenous production and supplementation. Vitamin D2, 1,25(OH)2 is an indicator of exogenous sources, such as diet or supplementation. ??Interpretation and therapy are based on measurement of Vitamin D,1,25(OH)2, Total. This test was developed and its analytical performance characteristics have been determined by [employer]. It has not been cleared or approved by the FDA. This assay has been validated pursuant to the CLIA regulations and is used for clinical purposes. Blood Blood / Unknown 09/28/2024 2 :47 PM EDT 09/28/2024 2:51 PM EDT Narrative [facility] - 10/02/2024 5:10 PM EDT FASTING:NO Linda Jerome [facility] - BLOOD DRAW Final Result Performing Organization Address City/[facility]/ZIP Co de Phone Number [facility] [address] [place], [place] , [facility] [address] [place], [place] * (ABNORMAL) LIPIDS W RFLX TO DIRECT LDL (09/28/2024 2:47 PM EDT) Pathologist [facility] CHOLESTEROL, TOTAL 145 <200 mg/dL [facility] HDL CHOLESTEROL 44(L) > OR = 50 mg/dL [email or web address] TRIGLYCERIDES 127 <150 mg/dL [email or web address] LDL-CHOLESTEROL 79 99 mg/dL (calc) [email or web address] Comment: Reference range: <100 Desirable range <100 mg/dL for primary prevention; ?? <70 mg/dL for patients with CHD or diabetic patients with > or = 2 CHD risk factors. LDL-C is now calculated using the Chung calculation, which is a validated novel method providing better accuracy than the Friedewald equation in the estimation of LDL-C. Frank SS et al. ADONIS. 2013;310(19): 9093-6104 (http://education.Xierkang/faq/KCG365) CHOL/HDLC RATIO 3.3 <5.0 (calc) [email or web address] NON-HDL CHOLESTEROL 101 <130 mg/dL (calc) [email or web address] Comment: For patients with diabetes plus 1 major ASCVD risk factor, treating to a non-HDL-C goal of <100 mg/dL (LDL-C of <70 mg/dL) is considered a therapeutic option. Blood Blood / Unknown 09/28/2024 2 :47 PM EDT 09/28/2024 2:51 PM EDT Narrative [facility] - 10/02/2024 5:10 PM EDT FASTING:NO Linda Cano [facility] - BLOOD DRAW Final Result [facility] [address] [place] [address], [email or web address] [address] [place] [phone] * VITAMIN B12 & FOLATE (09/28/2024 2:47 PM EDT) VITAMIN B12 410 200 - 1,100 pg/mL [email or web address] FOLATE, SERUM 18.0 5.5 ng/mL [email or web address] Comment: ? Reference Range ? Low: ? <3.4 ? Borderline: ?3.4-5.4 ? Normal: ?>5.4 Blood Blood / Unknown 09/28/2024 2 :47 PM EDT 09/28/2024 2:51 PM EDT Narrative [facility] - 10/02/2024 5:10 PM EDT FASTING:NO Linda Cano [employer] LAB - BLOOD DRAW Edited Resul t - Final [facility] [address] [address], [email or web address] [address] [place] [address] * BLOOD COUNT COMPLETE AUTO&AUTO DIFRNTL WBC (09/28/2024 2:47 PM EDT) [facility] WHITE BLOOD CELL COUNT 6.7 3.8 - 10.8 Thousand/ uL [email or web address] RED BLOOD CELL COUNT 4.40 3.80 - 5.10 Million/u L [email or web address] HEMOGLOBIN 13.6 11.7 - 15.5 g/dL [email or web address] HEMATOCRIT 41.4 35.0 - 45.0 % [email or web address] MCV 94.1 80.0 - 100.0 fL [email or web address] MCH 30.9 27.0 - 33.0 pg [email or web address] MCHC 32.9 32.0 - 36.0 g/dL [email or web address] Comment: For adults, a slight decrease in the calculated MCHC value (in the range of 30 to 32 g/dL) is most likely not clinically significant; however, it should be interpreted with caution in correlation with other red cell parameters and the patient's clinical condition. RDW 12.6 11.0 - 15.0 % [email or web address] PLATELET COUNT 197 140 - 400 Thousand/ uL [email or web address] MPV 12.1 7.5 - 12.5 fL [email or web address] ABSOLUTE NEUTROPHILS 4,147 1,500 - 7,800 cells/uL [email or web address] ABSOLUTE LYMPHOCYTES 1,856 850 - 3,900 cells/uL [facility] ABSOLUTE MONOCYTES 543 200 - 950 cells/uL [facility] ABSOLUTE EOSINOPHILS 127 15 - 500 cells/uL [facility] ABSOLUTE BASOPHILS 27 0 - 200 cells/uL [facility] NEUTROPHILS PCT 61.9 % QUES [employer] [facility] LYMPHOCYTES 27.7 % [facility] [employer] [facility] MONOCYTES 8.1 % [facility] [employer] [facility] EOSINOPHILS 1.9 % [facility] [employer] [facility] BASOPHILS 0.4 % [facility] [employer] [facility] Blood Blood / Unknown 09/28/2024 2 :47 PM EDT 09/28/2024 2:51 PM EDT Narrative [facility] - 10/02/2024 5:10 PM EDT FASTING:NO Linda Cano [employer] [facility] LAB - BLOOD DRAW Edited Resul t - Final [facility] [address] [address], [facility] [address] [place] [address] * COMPREHENSIVE METABOLIC PANEL (09/28/2024 2:47 PM EDT) Pathologist [facility] GLUCOSE 80 65 - 139 mg/dL [facility] Comment: ?Non-fasting reference interval UREA NITROGEN (BUN) 15 7 - 25 mg/dL [facility] CREATININE (blood) 0.71 0.50 - 0.99 mg/dL [facility] EGFR 109 > OR = 60 mL/min/1. 73m2 [facility] BUN/CREATININE RATIO SEE NOTE: [facility] Comment: ?? Not Reported: BUN and Creatinine are within ?? reference range. ? SODIUM 140 135 - 146 mmol/L [facility] POTASSIUM 3.9 3.5 - 5.3 mmol/L [email or web address] CHLORIDE 105 98 - 110 mmol/L [email or web address] CARBON DIOXIDE 29 20 - 32 mmol/L [facility] CALCIUM 9.1 8.6 - 10.2 mg/dL [facility] PROTEIN, TOTAL 7.1 6.1 - 8.1 g/dL [facility] ALBUMIN 4.3 3.6 - 5.1 g/dL [facility] GLOBULIN 2.8 1.9 - 3.7 g/dL (calc) [facility] ALBUMIN/GLOBULI N RATIO 1.5 1.0 - 2.5 (calc) [facility] BILIRUBIN, TOTAL 0.4 0.2 - 1.2 mg/dL [facility]AGNO[facility] ALKALINE PHOSPHATASE 51 31 - 125 U/L [facility] AST 16 10 - 30 U/L [facility] ALT 16 6 - 29 U/L [facility] Blood Blood / Unknown 09/28/2024 2 :47 PM EDT 09/28/2024 2:51 PM EDT Narrative [facility] - 10/02/2024 5:10 PM EDT FASTING:NO Linda Cano [employer] [facility] LAB - BLOOD DRAW Edited Resul t - Final [facility] [address] [address], [facility] [address] [place] [address] from Last 3 Months Insurance GENERIC - DENTAL [employer] [facility] Member Subscriber Plan / Payer (Ef fective 2024-Present) Name:Khadijah Tavarez Relation to Subscriber:Self Name:Khadijah Tavarez Payer ID:[id number] Type:Indemnity Address: [facility] [address] [place] [address] Care Teams Rn Infusion Relationship Specialty Start Date End Date Sveta Puente FNP [address] [place] [address] PCP - General Internal Medicine 12/07/23
--- OUTSIDE RECORDS SUMMARY | 2024-11-14 15:34 | XMS_ITS | Encounter Summary ---
Author Organization [employer] Address [address] [address] [place] [address] Care Team Providers Care Rn New Grad Name Role Phone Unavailable Primary Care Provider Unavailabl e Reason for Visit * Reason Comments Med Refill Encounter Details Date Type Department Care Team (Late st Contact Info) Description 11/26/2023 Refill [facility] [address] [place] [address] Micaela Gleason FNP Vaginal discharge [...]
== END 2024-11-14 13:00 | disposition home or self-care (01) ==
LOC: HO.US 12:59
PROVIDERS: Visit Provider Obstetrics & Gynecology
DX: N94.9 Unspecified condition associated with female genital organs and menstrual cycle (principal)
CPT/HCPCS: 76830; 76856

== ENCOUNTER → 2024-11-14 13:00 | Outpatient (BNV) | payer OTHER, SELFPAY | PROVIDERS: Visit Provider Radiology Diagnostic Radiology | DX: D25.9 Leiomyoma of uterus, unspecified (principal) | CPT/HCPCS: 76830; 76856 ==

== ENCOUNTER 2024-11-24 11:37 | Outpatient (AMB) | payer OTHER, SELFPAY ==
--- NOTE | 2024-11-24 11:37 | A.OFFVIS_ITS ---
Intake Visit Reasons: TV ultrasound results Allergies acetaminophen [From TYLENOL] Allergy (Unknown, Verified 08/15/24 15:36) LIVER CIRRHOSIS codeine [CODEINE] Allergy (Unknown, Verified 08/15/24 15:36) AGITATION Codeine Sulfate Allergy (Unknown, Uncoded 09/28/23 10:58) shaky HPI Comments Details: The patient is scheduled tele health visit for follow-up ultrasound which showed the following: Uterus: The uterus is normal in size, measuring 9.6 x 4.8 x 5.7 cm. Myometrium has a normal echotexture. Again seen are multiple fibroids including a posterior fibroid measuring 1.6 x 1.6 x 1.7 cm (previously 1.6 x 1.1 x 1.4 cm), and anterior fibroid measuring 2.5 x 1.1 x 2.0 cm (previously 1.6 x 1.3 x 1.8 cm) disease, and a left-sided fibroid measuring 1.2 x 1.3 x 1.3 cm (previously 1.8 x 2.0 x 0.9 cm) Endometrium: The endometrial stripe measures 9 mm in thickness. There are nabothian cysts in the cervix. Right ovary: The right ovary measures 3.4 x 1.8 x 1.9 cm. The previously seen rounded structure with cystic center is slightly smaller in size measuring 11 x 9 x 10 mm (previously 14 x 12 x 14 mm). Left ovary: The left ovary measures 2.9 x 0.8 x 1.8 cm. The left ovary is normal in size and echotexture. Pelvic fluid: none. [facility] Medical History Substance abuse Fibromyalgia Depressed Surgical History H/O tubal ligation Social History Alcohol intake: never Patient Tobacco Use Status: Current everyday Tobacco user Substance Use Type: Crack/Cocaine Review of Systems Const All systems reviewed & are unremarkable except as noted in HPI and below Reports as per HPI and Reports no additional complaints GI Reports no additional complaints Reports no additional complaints Telehealth Telehealth Telehealth Platform: Telephone Location of provider rendering services: practice address Location of patient: address on file Patient Identification confirmed using: Name, : Yes Telehealth method: video Patient verbally consented to treatment: Yes Patient verbally consented to billing insurance company: Yes Patient informed of any privacy concerns related to visit: Yes Minutes spent on Phone/Video with Pt.: 4 Assessment & Plan Assessment & Plan (1) Uterine myoma: Code(s): D25.9 - Leiomyoma of uterus, unspecified Category: Medical Plan: Discussed with the patient the findings on pelvic ultrasound & the risk of myosarcoma; in addition reviewed with the patient that malignancy and pre malignancy cannot be ruled out without hysterectomy for pathological evaluation ; furthermore, explained to the patient the limitation of pelvic ultrasound and endometrial biopsy in the setting. Discussed with the patient the options of treatment including expectant management versus hysterectomy; the pros and cons, risks benefits of each approach were discussed with the patient including the fact that in cases of myosarcoma, surgical treatment can lead to early diagnosis and positively affects the prognosis; after further discussion, the patient decided to proceed with expectant management. Will repeat pelvic ultrasound periodically. Instructions given to patient to call in case any of the following occurs: pressure symptoms, abnormal uterine bleeding, pelvic pain; and to schedule a six-months pelvic ultrasound (order placed) and a follow-up appointment . All questions answered, the patient verbalized understanding and agreed with the plan . I spent a total of 20 minutes reviewing the chart, talking to the patient via video and documenting in the medical record. (2) Complex ovarian cyst: Comment: Persistent since 06/12 Code(s): N83.299 - Other ovarian cyst, unspecified side Category: Medical Plan: Discussed with the patient the finding on ultrasound showing persistent complex ovarian cyst since 06/12, smaller in size, discussed with the patient differential diagnosis includes but not limited to benign, premalignant or malignant. In addition discussed with the patient limitations of ultrasound in determining malignant versus non malignant lesions. Recommended pelvic MRI for further ovarian cyst evaluation. Instructions given the patient to schedule pelvic MRI and a follow-up appointment within 2 weeks. All questions answered, the patient verbalized understanding Orders: Orders MR pelvis wo/w con Today N83.299 - Other ovarian cyst, unspecified side US pelvic and transvaginal 6 Months D25.9 - Leiomyoma of uterus, unspecified Coding Level of Care Code Tele Est Pt Level 3 (52495) Diagnoses Uterine myoma D25.9 Complex ovarian cyst N83.299
--- OUTSIDE RECORDS SUMMARY | 2024-11-24 13:09 | XMS_ITS | Clinical Summary ---
Author Organization Nicolette [facility] [facility] it Address [address] [place] [address] Care Team Providers Care Loss Prevention Detective Name Role Phone Rom North MD Primary Care Provider [phone] Allergies Active Allergy Reactions Criticality Noted Date [...] TUBAL LIGATION; COMMENT: Bilateral tubal fulguration, [place], [facility] Medical History Medical History Date Comments [...] Results * Cervical Cancer Screening: HPV (11/23/2012) [facility] Cervical Cancer Screening: HPV Negative, Abstracted [facility] Provider HEALTH MAINTENANCE Final Result * (ABNORMAL) Lipid panel (04/23/2011) [facility] LDL/HDL Ratio 3 0 - 4 Triglycerides 75 0 - 150 mg/dL Cholesterol 126 0 - 200 mg/dL HDL 37(A) >=40 mg/dL LDL Cholesterol 74 0 - 100 mg/dL Blood Venous blood specimen / Unknown Historical Provider LAB BLOOD ORDERABLES Consuelo l Result * HIV Screening (06/13/2009) [facility] HIV Screening Abstracted [facility] Provider HEALTH MAINTENANCE Final Result * Hepatitis C Screening (06/13/2009) Hepatitis C Screening Abstracted us Historical Provider HEALTH MAINTENANCE Final Result from Last 3 Months or Most Recently Relevant to Health Maintenance Care Teams Loss Prevention Detective Relationship Specialty Start Date End Date Rom North MD PCP - General 09/11/05
--- OUTSIDE RECORDS SUMMARY | 2024-11-24 13:09 | XMS_ITS | Clinical Summary ---
Author Organization [facility] Address [address] [place] [address] Care Team Providers Care Phytopathology Teacher Name Role Phone Sveta Puente KAREN Primary Care Provider [phone] Source Comments PLEASE NOTE, if this patient [...] Description 09/28/2024 2:20 PM EDT Office Visit [address] [phone] Linda Cano FNP Establishing care with new [...] Date Last Done Comments Anxiety Screening 1980 09/28/2024 HPV Screening 1980 Pap + HPV 1980 Imm-Hepatitis B (1 of 3 - 19 + 3-dose series) 2001 Imm-Pneumococcal (1 of 2 - PCV) 2001 Cervical Cancer Screening 2003 Pap Smear 2003 Imm-DTaP/Tdap/Td (2 - Td or Tdap) 01/26/2018 008 Breast Cancer Screening (Mammogram) 2022 [id number] ( season) 2024 Imm-Influenza (#1) 2024 04/05/2012, [...] Completed 09/28/2024, 07/18 HIV Screening Completed 09/28/2024, 1109/2022, 05/22/2023, Additional history exists Cervical Ablation/Cold-Knife Conization [...] AG/AB, 4TH GEN NON-REAC TIVE NON-REAC TIVE [facility] Comment: HIV-1 antigen and HIV-1/HIV-2 antibodies were [...] ?? For additional information please refer to http://education.Greenstack/faq/UBV718 (This link is being provided for informational/ educational purposes only.) The performance of this assay has not been clinically validated in patients less than 2 years old. Blood Blood / Unknown 09/28/2024 2 :47 PM EDT 09/28/2024 2:51 PM EDT Narrative [facility] - 10/02/2024 5:10 PM EDT FASTING:NO Linda Vaughnsoobalaji BIOMEDICAL MANAGER LAB - BLOOD DRAW Final Result [facility] [address] [place] [address], [facility] [address] [place] [phone] * HGA1C W/EAG (09/28/2024 2:47 PM EDT) HEMOGLOBIN A1C 5.2 <5.7 % of total Hgb [facility] Comment: For the purpose of screening for the presence of diabetes: <5.7% ? Consistent with the absence of diabetes 5.7-6.4% ?Consistent with increased risk for diabetes ?(prediabetes) > or =6.5% ??Consistent with diabetes This assay result is consistent with a decreased risk of diabetes. Currently, no consensus exists regarding use of hemoglobin A1c for diagnosis of diabetes in children. According to [place] Diabetes Association (ADA) guidelines, hemoglobin A1c <7.0% represents optimal control in non- diabetic patients. Different metrics may apply to specific patient populations. Standards of Medical Care in Diabetes(ADA). ?? EAG (MG/DL) 103 mg/dL [facility] EAG (MMOL/L) 5.7 mmol/L [facility] Blood Blood / Unknown 09/28/2024 2 :47 PM EDT 09/28/2024 2:51 PM EDT Narrative [facility] - 10/02/2024 5:10 PM EDT FASTING:NO us Linda JONES LAB - BLOOD DRAW Edited Resul t - Final [facility] [address] [address], [facility] [address] [address] * C TRACHOMATIS/N GONORRHOEAE RNA,TMA (09/28/2024 2:47 PM EDT) CHLAMYDIA TRACHOMATIS RNA, TMA NOT DETECTED NOT DETECTED [facility] NEISSERIA GONORRHOEAE RNA, TMA NOT DETECTED NOT DETECTED [facility] COMMENT [facility] Urine Urine specimen / Unknown 09/28/2024 2:47 PM EDT 09/28/2024 2:51 PM EDT Narrative [facility] - 10/02/2024 5:10 PM EDT FASTING:NO The analytical performance characteristics of this assay, when used to test SurePath(TM) specimens have been determined by [employer] The modifications have not been cleared or approved by the FDA. This assay has been validated pursuant to the CLIA regulations and is used for clinical purposes. For additional information, please refer to https://education.Greenstack/faq/SJH087 (This link is being provided for information/ educational purposes only.) us Linda JONES LAB - NO BLOOD DRAW Edited Re sult - Final Performing Organization Address [facility]/ZIP Co de Phone Number [facility] [address] [address], [facility] [address] [address] * VITAMIN D, 1,25-DIHYDROXY (09/28/2024 2:47 PM EDT) Pathologist [facility] VITAMIN D, 1, 25 (OH)2, TOTAL 39 18 - 72 pg/mL u.sit [facility]ST[facility] VITAMIN D3, 1, 25 (OH)2 39 pg/mL [facility] VITAMIN D2, 1, 25 (OH)2 <8 pg/mL [facility] Comment: Vitamin D3, 1,25(OH)2 indicates both endogenous production and supplementation. Vitamin D2, 1,25(OH)2 is an indicator of exogenous sources, such as diet or supplementation. ??Interpretation and therapy are based on measurement of Vitamin D,1,25(OH)2, Total. This test was developed and its analytical performance characteristics have been determined by [employer] [place] [place] It has not been cleared or approved by the FDA. This assay has been validated pursuant to the CLIA regulations and is used for clinical purposes. Blood Blood / Unknown 09/28/2024 2 :47 PM EDT 09/28/2024 2:51 PM EDT Narrative [facility] - 10/02/2024 5:10 PM EDT FASTING:NO Linda Cano [facility] - BLOOD DRAW Final Result [facility] [address] [place], [place] , [facility] [facility] [address] [place], [place] * (ABNORMAL) LIPIDS W RFLX TO DIRECT LDL (09/28/2024 2:47 PM EDT) Pathologist [facility] CHOLESTEROL, TOTAL 145 <200 mg/dL [facility] HDL CHOLESTEROL 44(L) > OR = 50 mg/dL [facility] TRIGLYCERIDES 127 <150 mg/dL [facility] LDL-CHOLESTEROL 79 99 mg/dL (calc) [facility] Comment: Reference range: <100 Desirable range <100 mg/dL for primary prevention; ?? <70 mg/dL for patients with CHD or diabetic patients with > or = 2 CHD risk factors. LDL-C is now calculated using the Chung calculation, which is a validated novel method providing better accuracy than the Friedewald equation in the estimation of LDL-C. Frank GRANADOS et al. ADONIS. 2013;310(19): 0703-6672 (http://education.SportsCstr/faq/MSR204) CHOL/HDLC RATIO 3.3 <5.0 (calc) [facility] NON-HDL CHOLESTEROL 101 <130 mg/dL (calc) [facility] Comment: For patients with diabetes plus 1 major ASCVD risk factor, treating to a non-HDL-C goal of <100 mg/dL (LDL-C of <70 mg/dL) is considered a therapeutic option. Blood Blood / Unknown 09/28/2024 2 :47 PM EDT 09/28/2024 2:51 PM EDT Narrative [facility] - 10/02/2024 5:10 PM EDT FASTING:NO Linda CAMPOP LAB - BLOOD DRAW Final Result [facility] [address] [place] [address], [facility] [address] [place] [phone] * VITAMIN B12 & FOLATE (09/28/2024 2:47 PM EDT) VITAMIN B12 410 200 - 1,100 pg/mL [facility] FOLATE, SERUM 18.0 5.5 ng/mL [facility] Comment: ? Reference Range ? Low: ? <3.4 ? Borderline: ?3.4-5.4 ? Normal: ?>5.4 Blood Blood / Unknown 09/28/2024 2 :47 PM EDT 09/28/2024 2:51 PM EDT Narrative [facility] - 10/02/2024 5:10 PM EDT FASTING:NO Linda Cano BIOMEDICAL MANAGER LAB - BLOOD DRAW Edited Resul t - Final [facility] [address] [address], [facility] [address] [place] [address] * BLOOD COUNT COMPLETE AUTO&AUTO DIFRNTL WBC (09/28/2024 2:47 PM EDT) Pathologist [facility] WHITE BLOOD CELL COUNT 6.7 3.8 - 10.8 Thousand/ uL [facility] RED BLOOD CELL COUNT 4.40 3.80 - 5.10 Million/u L [facility] HEMOGLOBIN 13.6 11.7 - 15.5 g/dL [facility] HEMATOCRIT 41.4 35.0 - 45.0 % [facility] MCV 94.1 80.0 - 100.0 fL [facility] MCH 30.9 27.0 - 33.0 pg [facility] MCHC 32.9 32.0 - 36.0 g/dL [facility] Comment: For adults, a slight decrease in the calculated MCHC value (in the range of 30 to 32 g/dL) is most likely not clinically significant; however, it should be interpreted with caution in correlation with other red cell parameters and the patient's clinical condition. RDW 12.6 11.0 - 15.0 % [facility] PLATELET COUNT 197 140 - 400 Thousand/ uL [facility] MPV 12.1 7.5 - 12.5 fL [facility] ABSOLUTE NEUTROPHILS 4,147 1,500 - 7,800 cells/uL [facility] ABSOLUTE LYMPHOCYTES 1,856 850 - 3,900 cells/uL [facility] ABSOLUTE MONOCYTES 543 200 - 950 cells/uL [facility] ABSOLUTE EOSINOPHILS 127 15 - 500 cells/uL [facility] ABSOLUTE BASOPHILS 27 0 - 200 cells/uL [facility] NEUTROPHILS PCT 61.9 % [employer] [facility] LYMPHOCYTES 27.7 % [facility] MONOCYTES 8.1 % [facility] [employer] EOSINOPHILS 1.9 % [facility] BASOPHILS 0.4 % u.sit DIAG [employer] [facility] Blood Blood / Unknown 09/28/2024 2 :47 PM EDT 09/28/2024 2:51 PM EDT Narrative [facility] - 10/02/2024 5:10 PM EDT FASTING:NO Linda Cano BIOMEDICAL MANAGER LAB - BLOOD DRAW Edited Resul t - Final [facility] [address] [address], [employer] [facility] [address] [place] [address] * COMPREHENSIVE METABOLIC PANEL (09/28/2024 2:47 PM EDT) GLUCOSE 80 65 - 139 mg/dL [facility] Comment: ?Non-fasting reference interval UREA NITROGEN (BUN) 15 7 - 25 mg/dL [facility] CREATININE (blood) 0.71 0.50 - 0.99 mg/dL [facility] EGFR 109 > OR = 60 mL/min/1. 73m2 [employer] [facility] BUN/CREATININE RATIO SEE NOTE: [employer] [facility] Comment: ?? Not Reported: BUN and Creatinine are within ?? reference range. ? SODIUM 140 135 - 146 mmol/L [employer] [facility] POTASSIUM 3.9 3.5 - 5.3 mmol/L [facility] CHLORIDE 105 98 - 110 mmol/L [facility] CARBON DIOXIDE 29 20 - 32 mmol/L [facility] CALCIUM 9.1 8.6 - 10.2 mg/dL [employer] [facility] PROTEIN, TOTAL 7.1 6.1 - 8.1 g/dL [facility] ALBUMIN 4.3 3.6 - 5.1 g/dL [facility] GLOBULIN 2.8 1.9 - 3.7 g/dL (calc) [facility] ALBUMIN/GLOBULI N RATIO 1.5 1.0 - 2.5 (calc) [facility] BILIRUBIN, TOTAL 0.4 0.2 - 1.2 mg/dL [facility] ALKALINE PHOSPHATASE 51 31 - 125 U/L [facility] AST 16 10 - 30 U/L [facility] ALT 16 6 - 29 U/L [facility] Blood Blood / Unknown 09/28/2024 2 :47 PM EDT 09/28/2024 2:51 PM EDT Narrative [facility] - 10/02/2024 5:10 PM EDT FASTING:NO Linda Sartenisha BIOMEDICAL MANAGER LAB - BLOOD DRAW Edited Resul t - Final [facility] [address] [address], [facility] [address] [place] [address] from Last 3 Months Insurance GENERIC - DENTAL [employer] [facility] Member Subscriber Plan / Payer (Ef fective 2024-Present) Name:Khadijah Tavarez Relation to Subscriber:Self Name:Khaidjah Tavarez Payer ID:[id number] Type:Indemnity Address: [facility] [address] [place] [address] Care Teams Phytopathology Teacher Relationship Specialty Start Date End Date Sveta Puente FNP [address] [place] [address] PCP - General Internal Medicine 12/07/23
--- OUTSIDE RECORDS SUMMARY | 2024-11-24 13:09 | XMS_ITS | Clinical Summary ---
Author Organization [employer] Address [address] [facility] [facility] [address] [place] [address] Care Team Providers Care Director Of Perioperative Services Name Role Phone Unavailable Primary Care Provider [...] EDT) Hepatitis C Antibody Reactive( A) Nonreactive [facility] Comment:Presumptive evidence of antibodies to HCV. Blood Venous blood specimen / Unknown 05/22/2023 11:35 AM EDT 05/22/2023 1:09 PM EDT Brent Gleason [facility] LAB BLOOD ORDERABLES Final Res ult Performing Organization Address [facility]/ZIP Co de Phone Number [facility] [address] [place] [phone] * HIV-1/2 Antigen and Antibodies, Fourth Generation, with Reflexes (05/22/2023 11:35 AM EDT) HIV AB/AG Nonreactive Nonreactive [facility] Comment:HIV-1 p24 Ag and/or HIV-1/HIV-2 Ab not detected.A test result that is nonreactive does not exclude thepossibility of exposure to or infection with HIV-1 and/orHIV-2. Nonreactive results in this assay for individualswith prior exposure to HIV-1 and/or HIV-2 may be due toantigen and antibody levels that are below the limit ofdetection of this assay.The [employer] HIV Ag/Ab Combo assay result andsupplemental assay results should be interpreted inconjunction with the patient's clinical presentation,history and other laboratory results. If the results areinconsistent with clinical evidence, additional testing issuggested to confirm the result. Blood Venous blood specimen / Unknown 05/22/2023 11:35 AM EDT 05/22/2023 1:09 PM EDT us Brent Gleason [facility] LAB BLOOD ORDERABLES Final Res ult Performing Organization Address City/[facility]/ZIP Co de Phone Number [facility] [address] [place] [address] [phone] * Pap Smear (05/20/2023 4:38 PM EDT) Swab Cervix uteri structure / Unknown 05/20/2023 4:38 PM EDT 05/21/2023 12:00 PM EDT Narrative [facility] - 06/02/2023 8:04 AM EST ----- ------- Name: Khadijah Tavarez ?Age/Sex: 43/F ? : 1980 Unit#: [id number] ?? Attend Dr: BRENT GLEASON FURNITURE REPAIRER ?Re05/20/23 ?Status: PRE REF ? Location: HO.HHCLNP ? Disch: ? ----- ------- SPEC : [id number] ?RECD: 05/21/23-1200 ? STATUS: ??SOUT ? REQ NUM: [id number] ? STEPHANIE: 05/20/236731 ? SUBM DR: BRENT GLEASON FURNITURE REPAIRER ? ENTERED: ??05/21/23-0850 ?SP TYPE: Pap Smr ?OTHR : ? [...] END OF REPORT ? us Brent Filibertosita CRAFT SUPERINTENDENT LAB CYTOLOGY ORDERABLES Final Result Performing Organization Address City/State/[facility] Co de Phone Number [facility] [address] [place] [address] [phone] from Last 3 Months or Most Recently Relevant to Health Maintenance Insurance [facility]
--- OUTSIDE RECORDS SUMMARY | 2024-11-24 13:09 | XMS_ITS | Encounter Summary ---
Author Organization [employer] Address [address] [facility] [address] [place] [address] Care Team Providers Care Musical Performer Name Role Phone Unavailable Primary Care Provider Unavailabl e Reason for Visit * Reason Comments Med Refill Encounter Details Date Type Department Care Team (Late st Contact Info) Description 11/26/2023 Refill [facility] [address] [place] [address] Micaela Gleason FNP Vaginal discharge [...]
== END 2024-11-24 11:52 | disposition home or self-care (01) ==
LOC: HO.HWS 11:37
PROVIDERS: Visit Provider Obstetrics & Gynecology
DX: D25.9 Leiomyoma of uterus, unspecified (principal); N83.299 Other ovarian cyst, unspecified side
CPT/HCPCS: 99213

== ENCOUNTER 2024-11-27 13:20 | Outpatient (REF) | payer OTHER, SELFPAY ==
--- OUTSIDE RECORDS SUMMARY | 2024-11-27 13:28 | XMS_ITS | Clinical Summary ---
Author Organization [employer] [facility] it Address [address] [place] [address] Care Team Providers Care Radio Station Engineer Name Role Phone Rom North MD Primary Care Provider [phone] Allergies Active Allergy Reactions Criticality Noted Date [...] TUBAL LIGATION; COMMENT: Bilateral tubal fulguration, [place], [facility] Medical History Medical History Date Comments [...] Results * Cervical Cancer Screening: HPV (11/23/2012) [facility] Cervical Cancer Screening: HPV Negative, Abstracted [facility] Provider HEALTH MAINTENANCE Final Result * (ABNORMAL) Lipid panel (04/23/2011) [facility] LDL/HDL Ratio 3 0 - 4 Triglycerides 75 0 - 150 mg/dL Cholesterol 126 0 - 200 mg/dL HDL 37(A) >=40 mg/dL LDL Cholesterol 74 0 - 100 mg/dL Blood Venous blood specimen / Unknown Historical Provider LAB BLOOD ORDERABLES Consuelo l Result * HIV Screening (06/13/2009) [facility] HIV Screening Abstracted [facility] Provider HEALTH MAINTENANCE Final Result * Hepatitis C Screening (06/13/2009) Hepatitis C Screening Abstracted us Historical Provider HEALTH MAINTENANCE Final Result from Last 3 Months or Most Recently Relevant to Health Maintenance Care Teams Radio Station Engineer Relationship Specialty Start Date End Date Rom North MD PCP - General 09/11/05
--- OUTSIDE RECORDS SUMMARY | 2024-11-27 13:28 | XMS_ITS | Clinical Summary ---
Author Organization [facility] Address [address] [place] [address] Care Team Providers Care Remelt Worker Name Role Phone Sveta Puente KAREN Primary Care Provider [phone] Source Comments PLEASE NOTE, if this patient [...] Description 09/28/2024 2:20 PM EDT Office Visit [address] [phone] Linda Cano FNP Establishing care with new [...] 01/26/2018 008 Breast Cancer Screening (Mammogram) 2022 [id number] ( season) 2024 Imm-Influenza (#1) 2024 04/05/2012, [...] AG/AB, 4TH GEN NON-REAC TIVE NON-REAC TIVE [facility] Comment: HIV-1 antigen and HIV-1/HIV-2 antibodies were [...] ?? For additional information please refer to http://education.CardioMEMS/faq/OBF792 (This link is being provided for informational/ educational purposes only.) The performance of this assay has not been clinically validated in patients less than 2 years old. Blood Blood / Unknown 09/28/2024 2 :47 PM EDT 09/28/2024 2:51 PM EDT Narrative [facility] - 10/02/2024 5:10 PM EDT FASTING:NO Linda Vaughnsoobalaji HOOP FLARING MACHINE OPERATOR HELPER LAB - BLOOD DRAW Final Result [facility] [address] [place] [phone], [facility] [address] [place] [phone] * HGA1C W/EAG (09/28/2024 2:47 PM EDT) HEMOGLOBIN A1C 5.2 <5.7 % of total Hgb [facility] Comment: For the purpose of screening for the presence of diabetes: <5.7% ? Consistent with the absence of diabetes 5.7-6.4% ?Consistent with increased risk for diabetes ?(prediabetes) > or =6.5% ??Consistent with diabetes This assay result is consistent with a decreased risk of diabetes. Currently, no consensus exists regarding use of hemoglobin A1c for diagnosis of diabetes in children. According to [place] Diabetes Association (ADA) guidelines, hemoglobin A1c <7.0% represents optimal control in non- diabetic patients. Different metrics may apply to specific patient populations. Standards of Medical Care in Diabetes(ADA). ?? EAG (MG/DL) 103 mg/dL [facility] EAG (MMOL/L) 5.7 mmol/L [facility] Blood Blood / Unknown 09/28/2024 2 :47 PM EDT 09/28/2024 2:51 PM EDT Narrative [facility] - 10/02/2024 5:10 PM EDT FASTING:NO us Linda JONES LAB - BLOOD DRAW Edited Resul t - Final [facility] [address] [address], [facility] [address] [phone] * C TRACHOMATIS/N GONORRHOEAE RNA,TMA (09/28/2024 2:47 PM EDT) CHLAMYDIA TRACHOMATIS RNA, TMA NOT DETECTED NOT DETECTED [facility] NEISSERIA GONORRHOEAE RNA, TMA NOT DETECTED NOT DETECTED [facility] COMMENT [facility] Urine Urine specimen / Unknown 09/28/2024 2:47 PM EDT 09/28/2024 2:51 PM EDT Narrative [facility] - 10/02/2024 5:10 PM EDT FASTING:NO The analytical performance characteristics of this assay, when used to test SurePath(TM) specimens have been determined by [employer]. The modifications have not been cleared or approved by the FDA. This assay has been validated pursuant to the CLIA regulations and is used for clinical purposes. For additional information, please refer to https://education.CardioMEMS/faq/NCY954 (This link is being provided for information/ educational purposes only.) us Linda JONES LAB - NO BLOOD DRAW Edited Re sult - Final Performing Organization Address [facility]/ZIP Co de Phone Number [facility] [address] [address], [facility] [address] [phone] * VITAMIN D, 1,25-DIHYDROXY (09/28/2024 2:47 PM EDT) Pathologist [facility] VITAMIN D, 1, 25 (OH)2, TOTAL 39 18 - 72 pg/mL [facility] VITAMIN D3, 1, 25 (OH)2 39 pg/mL [facility] VITAMIN D2, 1, 25 (OH)2 <8 pg/mL [facility] Comment: Vitamin D3, 1,25(OH)2 indicates both endogenous production and supplementation. Vitamin D2, 1,25(OH)2 is an indicator of exogenous sources, such as diet or supplementation. ??Interpretation and therapy are based on measurement of Vitamin D,1,25(OH)2, Total. This test was developed and its analytical performance characteristics have been determined by [employer], [place]. It has not been cleared or approved by the FDA. This assay has been validated pursuant to the CLIA regulations and is used for clinical purposes. Blood Blood / Unknown 09/28/2024 2 :47 PM EDT 09/28/2024 2:51 PM EDT Narrative [facility] - 10/02/2024 5:10 PM EDT FASTING:NO Linda Cano [facility] - BLOOD DRAW Final Result [facility] [address] [place], [place] , [facility] [place] [address] [place], [place] * (ABNORMAL) LIPIDS W RFLX TO DIRECT LDL (09/28/2024 2:47 PM EDT) Pathologist [facility] CHOLESTEROL, TOTAL 145 <200 mg/dL [facility] HDL CHOLESTEROL 44(L) > OR = 50 mg/dL [facility] TRIGLYCERIDES 127 <150 mg/dL [facility] LDL-CHOLESTEROL 79 99 mg/dL (calc) [facility] Comment: Reference range: <100 Desirable range <100 mg/dL for primary prevention; ?? <70 mg/dL for patients with CHD or diabetic patients with > or = 2 CHD risk factors. LDL-C is now calculated using the Chung calculation, which is a validated novel method providing better accuracy than the Friedewald equation in the estimation of LDL-C. Frank GRANADOS et al. ADONIS. 2013;310(19): 0457-9566 (http://education.Magazino/faq/ESN576) CHOL/HDLC RATIO 3.3 <5.0 (calc) [facility] NON-HDL CHOLESTEROL 101 <130 mg/dL (calc) [facility] Comment: For patients with diabetes plus 1 major ASCVD risk factor, treating to a non-HDL-C goal of <100 mg/dL (LDL-C of <70 mg/dL) is considered a therapeutic option. Blood Blood / Unknown 09/28/2024 2 :47 PM EDT 09/28/2024 2:51 PM EDT Narrative [facility] - 10/02/2024 5:10 PM EDT FASTING:NO Linda CAMPOP LAB - BLOOD DRAW Final Result [facility] [address] [place] [phone], [facility] [address] [place] [phone] * VITAMIN B12 & FOLATE (09/28/2024 2:47 PM EDT) VITAMIN B12 410 200 - 1,100 pg/mL [facility] FOLATE, SERUM 18.0 5.5 ng/mL [facility] Comment: ? Reference Range ? Low: ? <3.4 ? Borderline: ?3.4-5.4 ? Normal: ?>5.4 Blood Blood / Unknown 09/28/2024 2 :47 PM EDT 09/28/2024 2:51 PM EDT Narrative [facility] - 10/02/2024 5:10 PM EDT FASTING:NO Linda Cano HOOP FLARING MACHINE OPERATOR HELPER LAB - BLOOD DRAW Edited Resul t - Final [facility] [address] [address], [facility] [address] [place] [address] * BLOOD COUNT COMPLETE AUTO&AUTO DIFRNTL WBC (09/28/2024 2:47 PM EDT) Pathologist [facility] WHITE BLOOD CELL COUNT 6.7 3.8 - 10.8 Thousand/ uL [facility] RED BLOOD CELL COUNT 4.40 3.80 - 5.10 Million/u L [facility] HEMOGLOBIN 13.6 11.7 - 15.5 g/dL [facility] HEMATOCRIT 41.4 35.0 - 45.0 % [facility] MCV 94.1 80.0 - 100.0 fL [facility] MCH 30.9 27.0 - 33.0 pg [facility] MCHC 32.9 32.0 - 36.0 g/dL [facility] Comment: For adults, a slight decrease in the calculated MCHC value (in the range of 30 to 32 g/dL) is most likely not clinically significant; however, it should be interpreted with caution in correlation with other red cell parameters and the patient's clinical condition. RDW 12.6 11.0 - 15.0 % [facility] PLATELET COUNT 197 140 - 400 Thousand/ uL [facility] MPV 12.1 7.5 - 12.5 fL [facility] ABSOLUTE NEUTROPHILS 4,147 1,500 - 7,800 cells/uL [facility] ABSOLUTE LYMPHOCYTES 1,856 850 - 3,900 cells/uL [facility] ABSOLUTE MONOCYTES 543 200 - 950 cells/uL [facility] ABSOLUTE EOSINOPHILS 127 15 - 500 cells/uL [facility] ABSOLUTE BASOPHILS 27 0 - 200 cells/uL [facility] NEUTROPHILS PCT 61.9 % [facility] [employer] [facility] LYMPHOCYTES 27.7 % [facility] MONOCYTES 8.1 % [facility] EOSINOPHILS 1.9 % [facility] BASOPHILS 0.4 % [facility] [employer] [facility] Blood Blood / Unknown 09/28/2024 2 :47 PM EDT 09/28/2024 2:51 PM EDT Narrative [facility] - 10/02/2024 5:10 PM EDT FASTING:NO Linda Cano HOOP FLARING MACHINE OPERATOR HELPER LAB - BLOOD DRAW Edited Resul t - Final [facility] [address] [address], [employer] [facility] [address] [place] [phone] * COMPREHENSIVE METABOLIC PANEL (09/28/2024 2:47 PM EDT) GLUCOSE 80 65 - 139 mg/dL [facility] Comment: ?Non-fasting reference interval UREA NITROGEN (BUN) 15 7 - 25 mg/dL [facility] CREATININE (blood) 0.71 0.50 - 0.99 mg/dL [facility] EGFR 109 > OR = 60 mL/min/1. 73m2 [employer] [facility] BUN/CREATININE RATIO SEE NOTE: [employer] [facility] Comment: ?? Not Reported: BUN and Creatinine are within ?? reference range. ? SODIUM 140 135 - 146 mmol/L [employer] [facility] POTASSIUM 3.9 3.5 - 5.3 mmol/L [facility] CHLORIDE 105 98 - 110 mmol/L [facility] CARBON DIOXIDE 29 20 - 32 mmol/L [facility] CALCIUM 9.1 8.6 - 10.2 mg/dL [employer] [facility] PROTEIN, TOTAL 7.1 6.1 - 8.1 g/dL [facility] ALBUMIN 4.3 3.6 - 5.1 g/dL [facility] GLOBULIN 2.8 1.9 - 3.7 g/dL (calc) [facility] ALBUMIN/GLOBULI N RATIO 1.5 1.0 - 2.5 (calc) [facility] BILIRUBIN, TOTAL 0.4 0.2 - 1.2 mg/dL [facility] ALKALINE PHOSPHATASE 51 31 - 125 U/L [facility] AST 16 10 - 30 U/L [facility] ALT 16 6 - 29 U/L [facility] Blood Blood / Unknown 09/28/2024 2 :47 PM EDT 09/28/2024 2:51 PM EDT Narrative [facility] - 10/02/2024 5:10 PM EDT FASTING:NO Linda Sartenisha HOOP FLARING MACHINE OPERATOR HELPER LAB - BLOOD DRAW Edited Resul t - Final [facility] [address] [address], [facility] [address] [place] [phone] from Last 3 Months Insurance GENERIC - DENTAL [employer] [facility] Member Subscriber Plan / Payer (Ef fective 2024-Present) Name:Khadijah Tavarez Relation to Subscriber:Self Name:Khadijah Tavarez Payer ID:[id number] Type:Indemnity Address: [facility] [address] [place] [address] Care Teams Remelt Worker Relationship Specialty Start Date End Date Sveta Puente FNP [address] [place] [address] PCP - General Internal Medicine 12/07/23
--- OUTSIDE RECORDS SUMMARY | 2024-11-27 13:28 | XMS_ITS | Encounter Summary ---
Author Organization [employer] Address [address] [facility] [address] [place] [address] Care Team Providers Care Mortgage Field Inspector Name Role Phone Unavailable Primary Care Provider Unavailabl e Reason for Visit * Reason Comments Med Refill Encounter Details Date Type Department Care Team (Late st Contact Info) Description 11/26/2023 Refill [facility] [address] [place] [address] Micaela Gleason FNP Vaginal discharge [...]
== END 2024-11-27 13:21 | disposition home or self-care (01) ==
LOC: HO.MRI 13:20
PROVIDERS: Visit Provider Obstetrics & Gynecology
DX: Z13.89 Encounter for screening for other disorder (principal)

== ENCOUNTER 2025-01-17 09:10 | Outpatient (AMB) | payer OTHER, SELFPAY ==
--- NOTE | 2025-01-17 09:10 | A.OFFVIS_ITS ---
Intake Visit Reasons: TV MRI results Allergies acetaminophen (From TYLENOL) Allergy (Unknown, Verified 08/15/24 15:36) LIVER CIRRHOSIS codeine (CODEINE) Allergy (Unknown, Verified 08/15/24 15:36) AGITATION Codeine Sulfate Allergy (Unknown, Uncoded 09/28/23 10:58) shaky HPI Comments Details: The patient is schedule telehealth visit for follow-up pelvic MRI. Pelvic ultrasound done showed right complex ovarian cyst with uterine myoma. Pelvic MRI done in 12/11 showed 1.4 cm posterior subserosal myoma and a 2.1 cm anterior intramural myoma with bilateral follicular cyst on bilateral ovaries no evidence of aggressive ovarian lesion PFSH Medical History Substance abuse Fibromyalgia Depressed Surgical History H/O tubal ligation Social History Alcohol intake: never Patient Tobacco Use Status: Current everyday Tobacco user Substance Use Type: Crack/Cocaine Review of Systems Const All systems reviewed & are unremarkable except as noted in HPI and below Reports as per HPI and Reports no additional complaints GI Reports no additional complaints Reports no additional complaints Telehealth Telehealth Telehealth [facility] Location of provider rendering services: practice address Location of patient: address on file Patient Identification confirmed using: Name, : Yes Telehealth method: video Patient verbally consented to treatment: Yes Patient verbally consented to billing insurance company: Yes Patient informed of any privacy concerns related to visit: Yes Minutes spent on Phone/Video with Pt.: 2 Assessment & Plan Assessment & Plan (1) Complex ovarian cyst: Comment: Resolved Code(s): N83.299 - Other ovarian cyst, unspecified side Category: Medical Plan: Discussed with the patient pelvic MRI findings showing the previously identified complex cyst has resolved. The patient was instructed to call if symptoms recur. All questions were answered the patient verbalized understanding. (2) Uterine myoma: Code(s): D25.9 - Leiomyoma of uterus, unspecified Category: Medical Plan: Discussed with the patient the findings on pelvic ultrasound & the risk of my osarcoma; in addition reviewed with the patient that malignancy and pre malignancy cannot be ruled out without hysterectomy for pathological evaluation ; furthermore, explained to the patient the limitation of pelvic ultrasound and endometrial biopsy in the setting. Discussed with the patient the options of treatment including expectant management versus hysterectomy; the pros and cons, risks benefits of each approach were discussed with the patient including the fact that in cases of myosarcoma, surgical treatment can lead to early diagnosis and positively affects the prognosis; after further discussion, the patient decided to proceed with expectant management. Will repeat pelvic ultrasound periodically. Instructions given to patient to call in case any of the following occurs: pressure symptoms, abnormal uterine bleeding, pelvic pain; and to schedule a 4 months pelvic ultrasound (scheduled )and a follow-up appointment . All questions answered, the patient verbalized understanding and agreed with the plan . I spent a total of 20 minutes reviewing the chart, talking to the patient via video and documenting in the medical record. Coding Level of Care Code Tele Est Pt Level 3 (80345) Diagnoses Complex ovarian cyst N83.299 Uterine myoma D25.9
--- OUTSIDE RECORDS SUMMARY | 2025-01-17 09:41 | XMS_ITS | Clinical Summary ---
Author Organization [employer] Address [address] [facility] [address] [place] [address] Care Team Providers Care Pharmacist Aide Name Role Phone Unavailable Primary Care Provider [...] 77 05/20/2023 5:38 PM EDT Temperature 37.2 C (99 F) 05/20/2023 5:38 PM EDT Respiratory Rate 16 05/20/2023 5:38 PM EDT Oxygen Saturation 98% 05/20/2023 5:38 PM EDT Inhaled Oxygen Concentration - - Weight 59 kg (130 lb) 05/20/2023 5:38 PM EDT Height - - Body Mass Index - - Plan of Treatment Health Maintenance Due Date Last Done Comments Depression Screening 1980 SDOH Screening 1980 Disability Screening 1980 Alcohol/Substance Use Screening 1994 Family Planning (PISQ) 1997 DTaP/Tdap/Td Vaccines (1 - Tdap) 2001 Hepatitis B Vaccines (1 of 3 - 19+ 3-dose series) 2001 Pneumococcal Vaccine: Pediatrics (0 to 5 Years) and At-Risk Patients (6 to 49) Years (1 of 2 - PCV) 2001 HPV/Cotest 2012 Mammogram 2022 COVID-19 Vaccine ( - season) 2024 Tobacco Screening 05/20/2024 05/20/2023 Influenza Vaccine (Season Ended) 2025 Cervical Cancer Screening 05/20/2026 Pap Smear 05/20/2026 [...] EDT) Hepatitis C Antibody Reactive( A) Nonreactive [facility] Comment:Presumptive evidence of antibodies to HCV. Blood Venous blood specimen / Unknown 05/22/2023 11:35 AM EDT 05/22/2023 1:09 PM EDT us Brent Gleason [facility] BLOOD ORDERABLES Final Res ult [facility] [address] [place] [phone] * HIV-1/2 Antigen and Antibodies, Fourth Generation, with Reflexes (05/22/2023 11:35 AM EDT) HIV AB/AG Nonreactive Nonreactive [facility] Comment:HIV-1 p24 Ag and/or HIV-1/HIV-2 Ab not detected.A test result that is nonreactive does not exclude thepossibility of exposure to or infection with HIV-1 and/orHIV-2. Nonreactive results in this assay for individualswith prior exposure to HIV-1 and/or HIV-2 may be due toantigen and antibody levels that are below the limit ofdetection of this assay.The [employer] HIV Ag/Ab Combo assay result andsupplemental assay results should be interpreted inconjunction with the patient's clinical presentation,history and other laboratory results. If the results areinconsistent with clinical evidence, additional testing issuggested to confirm the result. Blood Venous blood specimen / Unknown 05/22/2023 11:35 AM EDT 05/22/2023 1:09 PM EDT us Brent Gleason [facility] BLOOD ORDERABLES Final Res ult [facility] [address] [place] [phone] * Pap Smear (05/20/2023 4:38 PM EDT) Swab Cervix uteri structure / Unknown 05/20/2023 4:38 PM EDT 05/21/2023 12:00 PM EDT Narrative [facility] - 06/02/2023 8:04 AM EST ----- ------- Name: Khadijah Tavarez Age/Sex: 43/F : 1980 Unit#: [id number] Attend Dr: BRENT GLEASON NP Re05/20/23 Status: PRE [facility] ------- SPEC : [id number] RECD: 05/21/23-1200 STATUS: BARRETT ASTORGA NUM: [id number] STEPHANIE: 05/20/23-[address] [facility] [address]: BRENT GLEASON NP ENTERED: 05/21/23-490 SP TYPE: Pap [facility] OT DR: ORDERED: Pap Smear Interpretation Satisfactory for evaluation. No endocervical cells seen. Negative for intraepithelial lesion or malignancy. Clinical Information LMP: 05/03/2023 Previous PAP test: Unknown date/findings Other history: History of abnormal pap within 3 years Material Received ThinPrep-Cervical ----- ------- Signed (signature on file) STANFORD Perales (ASCP) 06/02/23 0804 ----- ------- END OF REPORT Brent Gleason [facility] CYTOLOGY ORDERABLES Final Result [facility] [address] [place] [phone] from Last 3 Months or Most Recently Relevant to Health Maintenance Insurance [facility] [email or web address]
--- OUTSIDE RECORDS SUMMARY | 2025-01-17 09:41 | XMS_ITS | Clinical Summary ---
Author Organization [facility] Address [address] [place] [address] Care Team Providers Care Grants Analyst Name Role Phone Sveta Puente [facility] Primary Care Provider [phone] Source Comments PLEASE NOTE, if this patient [...] Safety and Environment Answer Date Patric rded How often does anyone, inclu ding family and friends, physically hurt you? 1 09/28/2024 Utilities Answer Date Recorded Utilities [...] 85 09/28/2024 2:09 PM EDT Temperature 36.7 C (98.1 F) 09/28/2024 2:09 PM EDT Respiratory Rate 16 09/28/2024 2:09 PM EDT Oxygen Saturation 98% 09/28/2024 2:09 PM EDT Inhaled Oxygen Concentration - - Weight 60.8 kg (134 lb) 09/28/2024 2:09 PM EDT Height 157.5 cm (5' 2 ) 09/28/2024 2:09 PM EDT Body Mass Index 24.51 09/28/2024 2:09 PM EDT Plan of Treatment Health Maintenance Due Date Last Done Comments HPV Screening 1980 Pap + HPV 1980 Imm-Hepatitis B (1 of 3 - 19 + 3-dose series) 2001 Imm-Pneumococcal (1 of 2 - PCV) 2001 Cervical Cancer Screening 2003 Pap Smear 2003 Imm-DTaP/Tdap/Td (2 - Td or Tdap) 01/26/2018 008 Breast Cancer Screening (Mammogram) 2022 [id number] ( season) 2024 Depression Monitoring 12/29/2024 09/28/2024, 022 Imm-Influenza (Season Ended) 2025, 04/23/2011, 05/04/2010, Additional history exists Anxiety Screening 09/28/2025 09/28/2024 Diabetes Screening 09/28/2025 09/28/2024, 0 09/28/2024, 10/03/2022, [...] Procedure Name Priority Date/Time Associated Diagnosis Comments HIV 1/2 AG & AB W/RFLX (4TH GEN) Routine 09/28/2024 2:47 PM EDT Screen for sexually transmitted diseases HGA1C W/EAG Routine 09/28/2024 2:47 PM EDT Prediabetes LIPIDS W RFLX TO DIRECT LDL Routine 09/28/2024 2:47 PM EDT Prediabetes from Last 3 Months or Most Recently Relevant to Health Maintenance Results * HIV 1/2 AG & AB W/RFLX (4TH GEN) (09/28/2024 2:47 PM EDT) Pathologist [facility] HIV AG/AB, 4TH GEN NON-REAC TIVE NON-REAC TIVE [facility] Comment: HIV-1 antigen and HIV-1/HIV-2 antibodies were not detected. There is no laboratory evidence of HIV infection. PLEASE NOTE: This information has been disclosed to you from records whose confidentiality may be protected by state law. If your state requires such protection, then the state law prohibits you from making any further disclosure of the information without the specific written consent of the person to whom it pertains, or as otherwise permitted by law. A general authorization for the release of medical or other information is NOT sufficient for this purpose. For additional information please refer to http://education.Ak[employer].Core Competence/faq/YUB248 (This link is being provided for informational/ educational purposes only.) The performance of this assay has not been clinically validated in patients less than 2 years old. Blood Blood / Unknown 09/28/2024 2 :47 PM EDT 09/28/2024 2:51 PM EDT Narrative [employer] [facility] [employer] [facility] - 10/02/2024 5:10 PM EDT FASTING:NO us Linda Vaughntenisha JONES LAB - BLOOD DRAW Final Result Performing Organization Address [facility] de Phone Number [facility] [address] [address], [facility] [address] [address] * HGA1C W/EAG (09/28/2024 2:47 PM EDT) HEMOGLOBIN A1C 5.2 <5.7 % of total Hgb [facility] Comment: For the purpose of screening for the presence of diabetes: <5.7% Consistent with the absence of diabetes 5.7-6.4% Consistent with increased risk for diabetes (prediabetes) > or =6.5% Consistent with diabetes This assay result is consistent with a decreased risk of diabetes. Currently, no consensus exists regarding use of hemoglobin A1c for diagnosis of diabetes in children. According to [place] Diabetes Association (ADA) guidelines, hemoglobin A1c <7.0% represents optimal control in non- diabetic patients. Different metrics may apply to specific patient populations. Standards of Medical Care in Diabetes(ADA). EAG (MG/DL) 103 mg/dL [facility] EAG (MMOL/L) 5.7 mmol/L [facility] Blood Blood / Unknown 09/28/2024 2 :47 PM EDT 09/28/2024 2:51 PM EDT Narrative [facility] - 10/02/2024 5:10 PM EDT FASTING:NO Linda JONES LAB - BLOOD DRAW Edited Resul t - Final Performing Organization Address [facility]/ZIP Co de Phone Number [facility] [address] [address], [facility] [address] [address] * (ABNORMAL) LIPIDS W RFLX TO DIRECT LDL (09/28/2024 2:47 PM EDT) CHOLESTEROL, TOTAL 145 <200 mg/dL [facility] HDL CHOLESTEROL 44(L) > OR = 50 mg/dL [facility] TRIGLYCERIDES 127 <150 mg/dL [facility] LDL-CHOLESTEROL 79 99 mg/dL (calc) [facility] Comment: Reference range: <100 Desirable range <100 mg/dL for primary prevention; <70 mg/dL for patients with CHD or diabetic patients with > or = 2 CHD risk factors. LDL-C is now calculated using the Chung calculation, which is a validated novel method providing better accuracy than the Friedewald equation in the estimation of LDL-C. Frank SS et al. ADONIS. 2013;310(19): 3945-4296 (http://education.Skin Scan/faq/JPP046) CHOL/HDLC RATIO 3.3 <5.0 (calc) [employer] [facility] NON-HDL CHOLESTEROL 101 <130 mg/dL (calc) [facility] Comment: For patients with diabetes plus 1 major ASCVD risk factor, treating to a non-HDL-C goal of <100 mg/dL (LDL-C of <70 mg/dL) is considered a therapeutic option. Blood Blood / Unknown 09/28/2024 2 :47 PM EDT 09/28/2024 2:51 PM EDT Narrative [employer] - 10/02/2024 5:10 PM EDT FASTING:NO Linda [facility] - BLOOD DRAW Final Result [facility] [address] [address], [employer] [address] [place] [phone] from Last 3 Months or Most Recently Relevant to Health Maintenance Insurance GENERIC - DENTAL [employer] Member Subscriber Plan / Payer (Ef fective 2024-Present) Name:Daysi Khadijah D Relation to Subscriber:Self Name:Khadijah Tavarez Payer ID:[id number] Type:Indemnity Address: [facility] [address] [place] [address] Care Teams Grants Analyst Relationship Specialty Start Date End Date Sveta Puente FNP [address] [place] [id number] PCP - General Internal Medicine 12/07/23
--- OUTSIDE RECORDS SUMMARY | 2025-01-17 09:41 | XMS_ITS | Clinical Summary ---
Author Organization [employer] [employer] [facility] it Address [address] [place] [address] Care Team Providers Care Component Overhaul Operator Name Role Phone Rom North MD Primary Care Provider Allergies Active Allergy Reactions Criticality Noted Date [...] TUBAL LIGATION; COMMENT: Bilateral tubal fulguration, [facility], [facility] Medical History Medical History Date Comments [...] Results * Cervical Cancer Screening: HPV (11/23/2012) [facility] Cervical Cancer Screening: HPV Negative, Abstracted [facility] Provider HEALTH MAINTENANCE Final Result * (ABNORMAL) Lipid panel (04/23/2011) [facility] LDL/HDL Ratio 3 0 - 4 Triglycerides 75 0 - 150 mg/dL Cholesterol 126 0 - 200 mg/dL HDL 37(A) >=40 mg/dL LDL Cholesterol 74 0 - 100 mg/dL Blood Venous blood specimen / Unknown Historical Provider LAB BLOOD ORDERABLES Consuelo l Result * HIV Screening (06/13/2009) [facility] HIV Screening Abstracted [facility] Provider HEALTH MAINTENANCE Final Result * Hepatitis C Screening (06/13/2009) Hepatitis C Screening Abstracted us Historical Provider HEALTH MAINTENANCE Final Result from Last 3 Months or Most Recently Relevant to Health Maintenance Care Teams Component Overhaul Operator Relationship Specialty Start Date End Date Rom North MD PCP - General 09/11/05
== END 2025-01-17 12:29 | disposition home or self-care (01) ==
PROVIDERS: Visit Provider Obstetrics & Gynecology
DX: N83.299 Other ovarian cyst, unspecified side (principal); D25.9 Leiomyoma of uterus, unspecified
CPT/HCPCS: 99213

== ENCOUNTER 2025-01-29 20:14 | Emergency (ER) | payer OTHER, SELFPAY ==
[2025-01-29 20:43] VITALS: BP 143/75; PULSE 67; RESP 16; TEMP 36.8; O2SAT 100; BMI 24.5
--- NOTE | 2025-01-29 20:44 | ED_ITS ---
HPI - General Adult General Chief complaint: Dental/Oral Stated complaint: jaw swollen 2 days/ pain Time Seen by Provider: 01/29/25 22:20 Source: patient Mode of arrival: ambulatory Limitations: no limitations History of Present Illness ED Provider: Dr. Sugar Garcia DO HPI narrative: 44 year old female with no significant PMH presenting with lower R sided mouth and jaw pain ongoing for the last 2 days, worsening despite tylenol. Associated with swelling, difficulty chewing secondary to pain. Denies assocaited fever, difficulty swallowing, tongue/throat swelling, pus drainage from the gums, vomiting or bowel changes. No illness otherwise. Hasn't seen a dentist but was previously told she needed the right lower premolar tooth pulled. Related Data Previous Rx's ?Medication ?Instructions ?Recorded metronidazole 500 mg tablet 500 mg PO BID 7 days #14 t abs 08/15/24 amoxicillin 875 mg-potassium 1 tab PO BID 10 days #20 tabs 01/29/25 clavulanate 125 mg tablet Allergies Allergy/AdvReac Type Severity Reaction Status Date / Time acetaminophen (From TYLENOL) Allergy Unknown LIVER Verified 01/29/25 20:45 CIRRHOSIS codeine (CODEINE) Allergy Unknown AGITATION Verified 01/29/25 20:45 Codeine Sulfate Allergy Unknown shaky Uncoded 09/28/23 10:58 Review of Systems 2 Review of Systems: Yes all other systems are reviewed and are negative (as per HPI) [facility] Past Medical History Attestation statement: The following information was validated with the patient. Medical History Substance abuse Fibromyalgia Depressed Surgical History H/O tubal ligation Social History Social History Alcohol intake: never Patient Tobacco Use Status: Current everyday Tobacco user Smoked in Last 30 Days: Yes Use of substances other than those prescribed or required for medical reasons: No Substance Use Type: Crack/Cocaine Advance Directives: No Advance Directives Information Provided: No Do you have a plan to hurt others: No Plan Patient : No Physical Exam ED Vital Signs: Vital Signs - 24 hr 01/29/25 20:43 Temperature 98.3 F Pulse Rate 67 Respiratory Rate 16 Blood Pressure 143/75 H Pulse Oximetry 100 Oxygen Delivery Method Room Air BMI result Body Mass Index 24.5 GENERAL: Nontoxic-Appearing, appears uncomfortable. SKIN: Normal skin color for ethnicity, warm, dry, no rashes noted. HEENT:? Normocephalic, atraumatic, no stridor, dry mucous membranes, dentition intact, EOMI, tenderness overlying the R lower jaw with associated swelling, periapical tenderness at callum R lower premolar without fluctuance, minimal erythema, no pus drainage, no trismus, no submandibular swelling/pain/erythema. NECK: Soft, supple, full ROM, midline structures nontender, no step-offs, no deformities, minimal anterior cervical lymphadenopathy. CHEST: Heart regular tachycardia, no murmurs, symmetric chest rise and fall. PULMONARY: Clear to auscultation bilaterally, diminished at the bases, no labored breathing, no wheezes/rhales/rhonchi. ABDOMINAL: Soft, nondistended, nontender, positive bowel sounds in all quadrants. : Deferred. MUSCULOSKELETAL: Normal tone, full range of motion, no deformities, no peripheral edema. NEURO: Alert and oriented x3, CN II through XII intact, equal strength and sensation bilateral upper and lower extremities, no focal neurologic deficits.? PSYCHIATRIC: Flat affect, fluid speech, good eye contact and appropriate demeanor. Course Course Course Narrative: Medical screening exam performed. Please refer to detailed history, exam, evaluation, and management by primary provider. Progressively worsening right- sided facial swelling No dental pain. Check labs. Medications Administered Discontinued Medications Generic Name Dose Route Start Last Admin Trade Name Freq PRN Reason Stop Dose Admin Amoxicillin/Clavulanate Potassium 875 mg 01/29/25 22:34 01/29/25 22:56 Amoxicillin/Potassium Clav 875 Mg Tablet PO 01/29/25 22:35 875 mg ONCE ONE Administration Ibuprofen 600 mg 01/29/25 22:34 01/29/25 22:56 Ibuprofen 600 Mg Tablet PO 01/29/25 22:35 600 mg ONCE ONE Administration Medical Decision Making Medical Decision Making [facility] Narrative: Patient presents today with a chief complaint of dental pain. Differential diagnosis includes dental caries, periapical abscess, apical abscess, deep space infection such as facial cellulitis or even Rafael's angina. This patient does not show any evidence of acute ENT emergency.? Patient will be prescribed antibiotics and anti-inflammatory with close follow-up with Dentistry in the next 24 hours.? Return precautions, specifically of any type of neck swelling, difficulty swallowing or difficulty breathing were given.? Differential Diagnosis Differential Diagnoses: The differential diagnosis associated with the presentation includes (as above) Admission/Observation Consideration of admission/observation: Escalation of care including admission/observation considered Lab Data MDM Lab Attestation statement: I reviewed the patient's lab results. 01/29/25 21:01 01/29/25 21:01 Labs: Lab Results 01/29/25 Range/Units 21:01 WBC 10.6 (4.8-10.8) X10*3/uL RBC 4.09 L (4.20-5.50) X10*6/uL Hgb 12.6 (12.0-16.0) g/dl Hct 35.6 L (37.0-47.0) % MCV 87.0 (80.0-98.0) fL MCH 30.8 (27.0-33.0) pg MCHC 35.4 H (31.0-35.0) g/dl RDW 13.3 (11.0-16.0) % Plt Count 187 (160-400) X10*3/uL MPV 11.1 (9.4-12.3) fL Immature Gran % (Auto) 0.3 (0.0-0.4) % Neut % (Auto) 69.9 (45-73) % Lymph % (Auto) 20.5 (20-40) % [place] % (Auto) 8.2 (2-11) % Eos % (Auto) 0.8 (0-4) % Baso % (Auto) 0.3 (0-2) % Lymph # (Auto) 2.2 (1.2-4.9) X10*3/uL [place] # (Auto) 0.9 (0.1-1.2) X10*3/uL Eos # (Auto) 0.1 (0.0-0.4) X10*3/uL Baso # (Auto) 0.0 (0.0-0.2) X10*3/uL Abs Immat Gran (auto) 0.03 (0.00-0.03) X10*3/uL Absolute Neuts (auto) 7.4 (2.0-8.3) x10*3/uL Absolute Nucleated RBC 0.000 (0.0-0.012) X10*3/uL Nucleated RBC % (auto) 0.0 (0.0-0.2) /100WBC Sodium 141 (135-145) mmol/L Potassium 3.4 (3.3-5.1) mmol/L Chloride 109 H (96-108) mmol/L Carbon Dioxide 23 (22-29) mmol/L Anion Gap 12 (12-20) BUN 15 (9-16) mg/dL Creatinine 0.64 (0.5-1.4) mg/dL Estim Creat Clear Calc 98.2 Estimated GFR > 60 Random Glucose 110 (60-115) mg/dL Lactic Acid 1.4 (0.5-2.0) mmol/L Calcium 8.9 (8.4-10.2) mg/dL Prescription Management I considered prescription management with: Pain Medication and Antibiotic Discharge Plan Discharge Clinical Impression: Dental abscess Patient Disposition: Home, Self-Care Instructions: Dental Abscess (ED) Additional Instructions: Follow-up with a dentist as soon as possible. Return to the emergency department with any new or worsening symptoms including: Worsening facial swelling or fevers despite antibiotics, inability to tolerate your antibiotics, any new symptom that concerns you. Call 911 with any medical emergency. Prescriptions: New amoxicillin-pot clavulanate 875-125 mg tablet 1 tab PO BID 10 Days Qty: 20 0RF No Action metronidazole 500 mg tablet 500 mg PO BID 7 Days Qty: 14 0RF Stand Alone Forms: Work/School Release Interventions: ED Discharge Assessment Last Done: 01/29/25 22:59 Discharge Date/Time: 01/29/25 23:00 Print Language: Divehi
[2025-01-29 21:08] LABS: MANUAL DIFF FLAG NO
[2025-01-29 21:10] LABS: Hematocrit 35.6 % (37.0-47.0); Hemoglobin 12.6 g/dl (12.0-16.0); Imm Gran Abs Auto 0.03 X10*3/uL (0.00-0.03); Imm Gran Pct Auto 0.3 % (0.0-0.4); Lymphocytes Absolute Auto 2.2 X10*3/uL (1.2-4.9); Mean Corpuscular HGB Conc 35.4 g/dl (31.0-35.0); Mean Corpuscular Hemoglobin 30.8 pg (27.0-33.0); Mean Corpuscular Volume 87.0 fL (80.0-98.0); NRBC Abs Auto 0.000 X10*3/uL (0.0-0.012); NRBC Pct Auto 0.0 /100WBC (0.0-0.2); Platelet Count 187 X10*3/uL (160-400); Red Blood Count 4.09 X10*6/uL (4.20-5.50); White Blood Count 10.6 X10*3/uL (4.8-10.8)
[2025-01-29 21:24] LABS: Anion Gap 12 (12-20); Blood Urea Nitrogen 15 mg/dL (9-16); Calcium 8.9 mg/dL (8.4-10.2); Carbon Dioxide 23 mmol/L (22-29); Chloride 109 mmol/L (96-108); Creatinine Clr Calc Pharmacy 98.2; Estimated Glomerular Filt Rate > 60; Potassium 3.4 mmol/L (3.3-5.1); Sodium 141 mmol/L (135-145)
[2025-01-29 22:59] VITALS: BP 143/75; PULSE 67; RESP 16; TEMP 36.8; O2SAT 100
== END 2025-01-29 23:00 | disposition home or self-care (01) ==
PROVIDERS: Physician Assistant; Emergency Provider Emergency Medicine; PCP Internal Medicine
DX: K04.7 Periapical abscess without sinus (principal); Z79.899 Other long term (current) drug therapy
CPT/HCPCS: 36415; 80048; 83605; 85025; 87040; 99283; 99284

== ENCOUNTER 2025-05-29 11:06 | Outpatient (REF) | payer OTHER, SELFPAY ==
--- NOTE | ~2025-05-29 | US_ITS ---
CLINICAL HISTORY: D25.9 - Leiomyoma of uterus, unspecified US pelvis transabdominal and transvaginal with Doppler Comparison: US/WA/SR - US PELVIS TRANSABDOMINAL AND TRANSVAGINAL - 11/14/24 13:09 EDT Findings: Transabdominal scanning performed for overall anatomy. Transvaginal scanning performed for additional detail. Anteverted uterus is 10.9 cm length. 2.0 x 1.4 x 1.9 cm subserosal fibroid arising from the posterior uterine body (previously 1.7 x 1.6 x 1.7 cm). 2.9 x 1.9 x 3.0 cm intramural fibroid within the anterior uterine body (previously 2.5 x 1.1 x 2.0 cm. 1.2 x 1.2 x 1.2 cm intramural fibroid within the anterior aspect of the lower uterine segment (previously 1.2 x 1.3 x 1.3 cm). Cervical nabothian cysts are incidentally noted. Endometrium 9.6 mm thickness. Right ovary 3.3 x 1.9 x 2.1 cm. 9 mm nodular focus associated with the right ovary without change. Left ovary 3.6 x 1.6 x 1.3 cm. Normal color Doppler of both ovaries. No free fluid. IMPRESSION: 1. There are several small uterine fibroids. This document has been electronically signed by: Karrie Finn MD on 05/30/2025 15:58:56
--- OUTSIDE RECORDS SUMMARY | 2025-05-29 13:28 | XMS_ITS | Encounter Summary ---
Author Organization [employer] Address [address] [facility] [address] [place] [address] Care Team Providers Care Utilization Specialist Name Role Phone Unavailable Primary Care Provider Unavailabl e Reason for Visit * Reason Comments Med Refill Encounter Details Date Type Department Care Team (Late st Contact Info) Description 11/26/2023 Refill [facility] [address] [place] [address] Micaela Gleason FNP Vaginal discharge [...]
--- OUTSIDE RECORDS SUMMARY | 2025-05-29 13:28 | XMS_ITS | Clinical Summary ---
Author Organization [employer] Address [address] [facility] [address] [place] [address] Care Team Providers Care Bleaching Supervisor Name Role Phone Unavailable Primary Care Provider [...] Use Screening 1994 Family Planning (PISQ) 1997 HPV Vaccines (1 - 3-dose series) 1997 DTaP/Tdap/Td Vaccines (1 - Tdap) 2001 Hepatitis B Vaccines (1 of 3 - 19+ 3-dose series) 2001 Pneumococcal Vaccine: Pediatrics (0 to 5 Years) and At-Risk Patients (6 to 49) Years (1 of 2 - PCV) 2001 HPV/Cotest 2012 Mammogram 2022 Tobacco Screening 05/20/2024 05/20/2023 COVID-19 Vaccine (1 - season) 2025 Influenza Vaccine (#1) 2025 Cervical Cancer Screening 05/20/2026 Pap Smear [...] EDT) Hepatitis C Antibody Reactive( A) Nonreactive [facility] Comment:Presumptive evidence of antibodies to HCV. Blood Venous blood specimen / Unknown 05/22/2023 11:35 AM EDT 05/22/2023 1:09 PM EDT Brent Gleason [facility] BLOOD ORDERABLES Final Res ult [facility] [address] [place] [phone] * HIV-1/2 Antigen and Antibodies, Fourth Generation, with Reflexes (05/22/2023 11:35 AM EDT) HIV AB/AG Nonreactive Nonreactive [facility] Comment:HIV-1 p24 Ag and/or HIV-1/HIV-2 Ab not detected.A test result that is nonreactive does not exclude thepossibility of exposure to or infection with HIV-1 and/orHIV-2. Nonreactive results in this assay for individualswith prior exposure to HIV-1 and/or HIV-2 may be due toantigen and antibody levels that are below the limit ofdetection of this assay.The [employer] HIV Ag/Ab Combo assay result andsupplemental assay results should be interpreted inconjunction with the patient's clinical presentation,history and other laboratory results. If the results areinconsistent with clinical evidence, additional testing issuggested to confirm the result. Blood Venous blood specimen / Unknown 05/22/2023 11:35 AM EDT 05/22/2023 1:09 PM EDT us Brent Gleason [facility] BLOOD ORDERABLES Final Res ult [facility] [address] [place] [phone] [phone] * Pap Smear (05/20/2023 4:38 PM EDT) Swab Cervix uteri structure / Unknown 05/20/2023 4:38 PM EDT 05/21/2023 12:00 PM EDT Narrative [facility] - 06/02/2023 8:04 AM EST ----- ------- Name: Khadijah Tavarez Age/Sex: 43/F : 1980 Unit#: [id number] Attend Dr: BRENT GLEASON NP Re05/20/23 Status: PRE [facility] Location: [facility] Disch: ----- ------- SPEC : [id number] RECD: 05/21/23-1199 STATUS: BARRETT ASTORGA NUM: [id number] STEPHANIE: 05/20/[address] [facility] [address]: BRENT GLEASON NP ENTERED: 05/21/23-135 SP TYPE: Pap [facility] DR: ORDERED: Pap Smear Interpretation Satisfactory for evaluation. No endocervical cells seen. Negative for intraepithelial lesion or malignancy. Clinical Information LMP: 05/03/2023 Previous PAP test: Unknown date/findings Other history: History of abnormal pap within 3 years Material Received ThinPrep-Cervical ----- ------- Signed (signature on file) STANFORD Perales (ASCP) 06/02/23 0804 ----- ------- END OF REPORT Brent Gleason [facility] CYTOLOGY ORDERABLES Final Result [facility] [address] [place] [address] [phone] from Last 3 Months or Most Recently Relevant to Health Maintenance Insurance [place] [address]
--- OUTSIDE RECORDS SUMMARY | 2025-05-29 13:28 | XMS_ITS | Clinical Summary ---
Author Organization [facility] [employer] [facility] it Address [address] [place] [address] Care Team Providers Care Night Warehouse Selector Name Role Phone Rom North MD Primary Care Provider [phone] Allergies Active Allergy Reactions Criticality Noted Date [...] Hip pain 09/03/2007 Sacroiliac pain 09/03/2007 Immunizations Immunization Administration Dates Next Due HPV, Quadrivalent 09/09/2007,04/23/2007,02/16/20 07 Influenza trivalent, with preservative (Fluzone; Afluria) 6mo and older 04/05/2012,04/23/2011,05/04/2010,2006 PPD Test 09/18/2009 Tdap Tetanus diptheria acell ular pertussis (Boostrix; Adacel) 7yo and older 01/27/2008 Surgical History Surgery Date Site/Laterality Comments TUBAL LIGATION 08/11/03 PROCEDURE: HISTORICAL TUBAL LIGATION; COMMENT: Bilateral tubal fulguration, [facility], [facility] Medical History Medical History Date Comments [...] Years Used Date Smoking Tobacco: Former Cigarettes 0 Q uit: 03/20/2011 Smokeless Tobacco: Never Alcohol [...] 04/23/2011 Social Influencers of Health Screening 06/18/2022 Depression Screening 07/20/2024 COVID-19 Vaccine ( season) 2025 Influenza Vaccine (#1) 2025 2, 04/23/2011, 05/04/2010, Additional history exists RSV Immunization Adult Patients (1 - 1-dose 75+ series) 2057 HPV Vaccines Completed 09/09/2007, 11/2006, 02/15/2007 HIV [...] 5 Years) and At-Risk Patients (6 to 49 Years) Aged Out No longer eligible based [...] Results * Cervical Cancer Screening: HPV (11/23/2012) [facility] Cervical Cancer Screening: HPV Negative, Abstracted Historical Provider HEALTH MAINTENANCE Final Result * (ABNORMAL) Lipid panel (04/23/2011) [facility] LDL/HDL Ratio 3 0 - 4 Triglycerides 75 0 - 150 mg/dL Cholesterol 126 0 - 200 mg/dL HDL 37(A) >=40 mg/dL LDL Cholesterol 74 0 - 100 mg/dL Blood Venous blood specimen / Unknown Historical Provider LAB BLOOD ORDERABLES Consuelo l Result * HIV Screening (06/13/2009) HIV Screening Abstracted us Historical Provider HEALTH MAINTENANCE Final Result * Hepatitis C Screening (06/13/2009) Hepatitis C Screening Abstracted us Historical Provider HEALTH MAINTENANCE Final Result from Last 3 Months or Most Recently Relevant to Health Maintenance Care Teams Night Warehouse Selector Relationship Specialty Start Date End Date Rom North MD PCP - General 09/11/05
--- OUTSIDE RECORDS SUMMARY | 2025-05-29 13:28 | XMS_ITS | Clinical Summary ---
Author Organization [facility] Address [address] [place] [address] Care Team Providers Care Distributed Energy Systems Consultant Name Role Phone Sveta Puente [facility] Primary Care Provider [phone] Source Comments PLEASE NOTE, if this patient [...] Due Date Last Done Comments HPV Screening (self-collect) 1982 HPV Screening 1982 Pap + HPV 1982 Imm-Hepatitis B (1 of 3 - 19 + 3-dose series) 2001 Imm-Pneumococcal (1 of 2 - PCV) 2001 Imm-DTaP/Tdap/Td (2 - Td or Tdap) 01/26/2018 008 Breast Cancer Screening (Mammogram) 2022 Depression Monitoring 12/29/2024 09/28/2024, 022 Xph-AKSEP-24 ( season) 2025 Imm-Influenza (#1) 2025 04/05/2012, 1 , 05/04/2010, Additional history exists Anxiety Screening 09/28/2025 09/28/2024 Diabetes Screening 09/28/2025 09/28/2024, 0 09/28/2024, 10/03/2022, Additional history exists Hypertension Screening (#1) 09/28/2025 Relationship Safety Screening/Counseling 09/28/2025 09/28/2024, 07/18/2022 Tobacco Cessation Counseling (#1) 09/28/2025 025 Cervical Cancer Screening 05/20/2026 Pap Smear 05/20/2026 05/20/2023 Lipid Screening 09/28/2029 09/28/2024, 07/18/2022 Imm-HPV Completed 09/09/2007, 11/2006, 02/15/2007 Hepatitis C Screening Completed 05/22/2023 Alcohol and Drug Screen Completed 09/28/2024, 07/18 HIV Screening Completed 09/28/2024, 09/2022, 05/22/2023, Additional history exists Cervical Ablation/Cold-Knife Conization Discontinued Cervical Cryotherapy Discontinued Colposcopy Discontinued Excision/Leep Discontinued HPV Genotyping Discontinued Vaginal [...] AG/AB, 4TH GEN NON-REAC TIVE NON-REAC TIVE [employer] Comment: HIV-1 antigen and HIV-1/HIV-2 antibodies were [...] purpose. For additional information please refer to http://education.Inoapps.GROUNDBOOTH/faq/TWJ245 (This link is being provided for informational/ educational purposes only.) The performance of this assay has not been clinically validated in patients less than 2 years old. Blood Blood / Unknown 09/28/2024 2 :47 PM EDT 09/28/2024 2:51 PM EDT Narrative [employer] - 10/02/2024 5:10 PM EDT FASTING:NO [facility] - BLOOD DRAW Final Result Performing Organization Address [facility] de Phone Number [employer] [facility] [address] [address], [employer] [address] [phone] * HGA1C W/EAG (09/28/2024 2:47 PM EDT) HEMOGLOBIN A1C 5.2 <5.7 % of total Hgb [employer] [facility] Comment: For the purpose of screening for the presence of diabetes: <5.7% Consistent with the absence of diabetes 5.7-6.4% Consistent with increased risk for diabetes (prediabetes) > or =6.5% Consistent with diabetes This assay result is consistent with a decreased risk of diabetes. Currently, no consensus exists regarding use of hemoglobin A1c for diagnosis of diabetes in children. According to [place] Diabetes Association (ADA) guidelines, hemoglobin A1c <7.0% represents optimal control in non- diabetic patients. Different metrics may apply to specific patient populations. Standards of Medical Care in Diabetes(ADA). EAG (MG/DL) 103 mg/dL [facility] EAG (MMOL/L) 5.7 mmol/L [facility] I[facility] Blood Blood / Unknown 09/28/2024 2 :47 PM EDT 09/28/2024 2:51 PM EDT Narrative [employer] - 10/02/2024 5:10 PM EDT FASTING:NO us [facility] - BLOOD DRAW Edited Resul t - Final Performing Organization Address [facility]/ZIP Co de Phone Number [employer] [facility] [address] [address], [place] [employer] [address] [place] [address] * (ABNORMAL) LIPIDS W RFLX TO DIRECT LDL (09/28/2024 2:47 PM EDT) CHOLESTEROL, TOTAL 145 <200 mg/dL [facility] HDL CHOLESTEROL 44(L) > OR = 50 mg/dL [employer] TRIGLYCERIDES 127 <150 mg/dL [employer] LDL-CHOLESTEROL 79 99 mg/dL (calc) [employer] Comment: Reference range: <100 Desirable range <100 mg/dL for primary prevention; <70 mg/dL for patients with CHD or diabetic patients with > or = 2 CHD risk factors. LDL-C is now calculated using the Chung calculation, which is a validated novel method providing better accuracy than the Friedewald equation in the estimation of LDL-C. Frank GRANADOS et al. ADONIS. 2013;310(19): 9841-9653 (http://education.Network Vision/faq/NEM030) CHOL/HDLC RATIO 3.3 <5.0 (calc) [employer] [facility] NON-HDL CHOLESTEROL 101 <130 mg/dL (calc) [employer] Comment: For patients with diabetes plus 1 major ASCVD risk factor, treating to a non-HDL-C goal of <100 mg/dL (LDL-C of <70 mg/dL) is considered a therapeutic option. Blood Blood / Unknown 09/28/2024 2 :47 PM EDT 09/28/2024 2:51 PM EDT Narrative [employer] [facility] - 10/02/2024 5:10 PM EDT FASTING:NO [facility] - BLOOD DRAW Final Result [employer] [facility] [address] [address], [employer] [address] [address] from Last 3 Months or Most Recently Relevant to Health Maintenance Insurance GENERIC - DENTAL [employer] Member Subscriber Plan / Payer (Ef fective 2024-Present) Name:Khadijah Tavarez Relation to Subscriber:Self Name:Khadijah Tavarez Payer ID:[id number] Type:Indemnity Address: [facility] [address] [place] [address] Care Teams Distributed Energy Systems Consultant Relationship Specialty Start Date End Date Sveta Puente FNP [address] [place] [id number] PCP - General Internal Medicine 12/07/23
== END 2025-05-29 11:07 | disposition home or self-care (01) ==
LOC: HO.US 11:06
PROVIDERS: PCP Internal Medicine; Visit Provider Obstetrics & Gynecology
DX: D25.9 Leiomyoma of uterus, unspecified (principal)
CPT/HCPCS: 76830; 76856

== ENCOUNTER → 2025-05-29 11:07 | Outpatient (BNV) | payer OTHER, SELFPAY | PROVIDERS: PCP Internal Medicine; Visit Provider Radiology Diagnostic Radiology | DX: D25.9 Leiomyoma of uterus, unspecified (principal) | CPT/HCPCS: 76830; 76856 ==

== ENCOUNTER 2025-06-26 11:02 | Outpatient (AMB) | payer OTHER, SELFPAY ==
--- NOTE | 2025-06-26 11:08 | MHC.OFFVIS ---
Intake Visit Reasons: Ultrasound follow up Escalator Attendant: Escalator Attendant Present Accompanied by: Self / Same As Patient Allergies acetaminophen (From TYLENOL) Allergy (Unknown, Verified 06/26/25 11:09) LIVER CIRRHOSIS codeine (CODEINE) Allergy (Unknown, Verified 06/26/25 11:09) AGITATION Codeine Sulfate Allergy (Unknown, Uncoded 09/28/23 10:58) lizbeth HPI Comments Details: Presenting for follow-up ultrasound regarding uterine myoma seen on previous pelvic ultrasound. The patient is doing well with no complaints no abnormal uterine bleeding, pelvic pressure or pain. Pelvic ultrasound done recently showed the following: Transabdominal scanning performed for overall anatomy. Transvaginal scanning performed for additional detail. Anteverted uterus is 10.9 cm length. 2.0 x 1.4 x 1.9 cm subserosal fibroid arising from the posterior uterine body (previously 1.7 x 1.6 x 1.7 cm). 2.9 x 1.9 x 3.0 cm intramural fibroid within the anterior uterine body (previously 2.5 x 1.1 x 2.0 cm. 1.2 x 1.2 x 1.2 cm intramural fibroid within the anterior aspect of the lower uterine segment (previously 1.2 x 1.3 x 1.3 cm). Cervical nabothian cysts are incidentally noted. Endometrium 9.6 mm thickness. Right ovary 3.3 x 1.9 x 2.1 cm. 9 mm nodular focus associated with the right ovary without change. Left ovary 3.6 x 1.6 x 1.3 cm. Normal color Doppler of both ovaries. No free fluid. [facility] Medical History Substance abuse Fibromyalgia Depressed Surgical History H/O tubal ligation Social History Alcohol intake: never Patient Tobacco Use Status: Current everyday Tobacco user Substance Use Type: Crack/Cocaine Review of Systems Const All systems reviewed & are unremarkable except as noted in HPI and below Reports as per HPI and Reports no additional complaints GI Reports no additional complaints Reports no additional complaints Assessment & Plan Assessment & Plan (1) Uterine myoma: Code(s): D25.9 - Leiomyoma of uterus, unspecified Category: Medical Plan: Discussed with the patient the findings on pelvic ultrasound & the risk of myosarcoma; in addition reviewed with the patient that malignancy and pre malignancy cannot be ruled out without hysterectomy for pathological evaluation ; furthermore, explained to the patient the limitation of pelvic ultrasound and endometrial biopsy in the setting. Discussed with the patient the options of treatment including expectant management versus hysterectomy; the pros and cons, risks benefits of each approach were discussed with the patient including the fact that in cases of myosarcoma, surgical treatment can lead to early diagnosis and positively affects the prognosis; after further discussion, the patient decided to proceed with expectant management. Will repeat pelvic ultrasound periodically. Instructions given to patient to call in case any of the following occurs: pressure symptoms, abnormal uterine bleeding, pelvic pain; and to schedule a 12 months pelvic ultrasound (order placed) and a follow-up appointment . All questions answered, the patient verbalized understanding and agreed with the plan . Orders: Orders US pelvic and transvaginal 1 Year D25.9 - Leiomyoma of uterus, unspecified Coding Level of Care Code Est Pt Level 3 (74706) Diagnoses Uterine myoma D25.9
== END 2025-06-26 11:18 | disposition home or self-care (01) ==
LOC: HO.HWS 11:03
PROVIDERS: Visit Provider Obstetrics & Gynecology
DX: D25.9 Leiomyoma of uterus, unspecified (principal)
CPT/HCPCS: 99213

== ENCOUNTER → 2025-06-26 11:02 | Outpatient (BNVA) | payer OTHER, SELFPAY | PROVIDERS: Visit Provider Obstetrics & Gynecology | DX: D25.1 Intramural leiomyoma of uterus (principal) | CPT/HCPCS: 99212 ==